=== PATIENT | female | born 1955 | race Caucasian/White ===

== ENCOUNTER → 2023-02-11 | Outpatient (CLI) | payer OTHER, SELFPAY ==
--- NOTE | 2023-02-11 | LES_PTH ---
PATIENT: CHUN MAZA LOC: [facility] U#:[id number] AGE/SX: 67/F ROOM: RE02/11/[address]: Dr. Elvis Marcano MD : 1955 BED: DIS: 02/11/2023 SPEC #: [id number] RECD: 02/11/23 17:39 STATUS: BRENT LINDA #: [id number] NANDINI: 02/11/23 00:[address]: Elvis Marcano DEPT: SURGICAL PATHOLOGY RECD BY: Mansi Junior Tissues: Skin of eyelid, NOS Procedures: Surgery Specimen Level IV HEADER OPERATION: Excision pterygium, right eye PRE-OP DIAGNOSIS: Excision pterygium, right eye, increased size and thickness TISSUE SUBMITTED: Pterygium, nasal, right eye MICROSCOPIC DIAGNOSIS Pterygium right eye, biopsy: Pterygium with elastosis. AM:nael 02/15/2023 MICROSCOPIC DESCRIPTION Slides are reviewed. GROSS DESCRIPTION Received in fixative is one container labeled with the patient's name and designated pterygium, nasal, right eye. The specimen consists of a piece of dewitt-brown soft tissue measuring 0.3 x 0.1 x 0.1 cm. The entire specimen is submitted in one cassette. / SJ:nael 02/12/2023 TC:5 CPT: 56038
== END | disposition home or self-care (01) ==
PROVIDERS: Visit Provider Ophthalmology
DX: H11.001 Unspecified pterygium of right eye (principal)
CPT/HCPCS: 88305

== ENCOUNTER 2025-03-20 13:22 | Emergency (ER) | payer MEDICARE, SELFPAY ==
[2025-03-20 13:23] VITALS: BP 137/92; PULSE 109; RESP 18; TEMP 35.6; O2SAT 98
--- NOTE | 2025-03-20 14:10 | EX.ED.GENINJ ---
HPI History of Present Illness Chief Complaint: Trauma Detail of Chief Complaint: Injury left index finger while using hedger Informant: patient Onset/Context/Timing Onset: Hours Mechanism/Context: Blunt Injury Location of pain/injuries: Left hand (Index finger distal to the DIP joint) Current Severity: Mild Maximum Severity: Moderate Worsened by: Original injury Relieved by: Not using her hand Associated Symptoms Associated Symptoms: Negative for Parasthesias, Weakness or Loss of function Narrative Narrative: Patient is a 69-year-old [id number] female. She has no significant past medical history. She states her tetanus is up-to-date. She was using a hedge tremor. She sustained injury to the tip of her left index finger. She states she is able to bend her finger. She has no medical allergies. Prior similar symptoms: No Recent Illness/Hospitalization: No PFSH PFSH Medical History no medical history no medical history Home Medications ?Medication ?Instructions ?Recorded ?Last Taken ?Type clobetasol 0.05 % topical ointment 1 applic topical BID PRN FLARE 03/20/25 Unknown History valacyclovir 500 mg tablet 500 mg PO BID 03/20/25 Unknown History Allergy/AdvReac Type Severity Reaction Status Date / Time No Known Allergies Allergy Verified 03/20/25 13:23 Social History Smoking Status: Never smoker ROS ROS ED Integumentary Reports other Details: Laceration left index finger distal DIP joint ; Denies rash Neurologic Neurologic: Denies paresthesias Hematologic/Lymphatic Hematologic/Lymphatic: Denies easy bleeding or easy bruising EXAM Physical Exam Const Vital Signs: 03/20/25 13:23 Temperature 96.1 F L Temperature Source Temporal Pulse Rate 109 H Respiratory Rate 18 Blood Pressure 137/92 H Blood Pressure Mean 107 Pulse Ox 98 Oxygen Delivery Method Room Air Positive well nourished and well developed Constitutional Narrative: Patient is very anxious. Patient requested something for pain. I informed her I will anesthetize her finger and she will have no pain within 10 seconds. General Appearance ED: well developed HEENT HEENT Narrative: Head is normocephalic. Ears are normal. atraumatic Eyes PERRL and EOMs intact bilaterally General Eye ED: Yes other Other Details: There is no scleral icterus. Resp normal respiratory effort Cardio regular rhythm and S1 normal heart sound Extremity full ROM; Negative for normal to inspection Extremity Narrative: The flexor digitorum superficialis and flexor digitorum profundus are both intact. There is no subungual hematoma. Patient has abnormal to point discrimination distal to the wound. Neuro oriented x3, CN's II-XII intact bilaterally, no focal motor deficits and No no sensory deficits noted [place] Coma Scale: document GCS findings Spontaneous Obeys Commands Oriented 15 Sensorium / Orientation: alert Psych thought process normal; Negative for mental status grossly normal Mood & Affect: anxious Skin Skin Narrative: Laceration distal left index finger PROC Procedures Other Procedures Procedure(s): Laceration left index finger total length 1.9 cm: Patient was anesthetized by digital block. 1% lidocaine without epinephrine was used. A total of 3 cc was infused. Prior to placing the for stitch patient states she has burning sensation the tip of her index finger ulnar side. Additionally lidocaine was instilled. Wound was cleansed with serge cleanse irrigated with saline. Using 5-0 Ethilon simple interrupted sutures placed. Total number of stitches 6. MDM MDM MDM Narrative Medical decision making narrative: X-ray was obtained to evaluate for osseous injury. Patient has abnormal 2 points rumination. The wound is quite distal and would not be something that would be treated with microsurgery. Radiography Chest X-Ray - ED: Read by ED Physician (Three-view x-ray of the index finger reveals no evidence of fracture or foreign body. This is a fairly reviewed interpreted by me at 1421) Diagnostic Testing: Clinical Impression(s) from Imaging Studies Finger X-Ray 03/20/25 14:15 IMPRESSION: Soft tissue laceration. No fracture. Reading Location: [facility] Discharge Plan Triage Chief Complaint: Trauma ED Provider: Julián Sheldon Dx/Rx/DC Orders Clinical Impression: Laceration of left index finger with complication, Sinus tachycardia, Elevated blood-pressure reading without diagnosis of hypertension Instructions: ED Hypertension, To Be Confirmed, ED Laceration, Hand: All Closures Prescriptions: No Action valacyclovir 500 mg tablet 500 mg PO BID Patient Comments: PT STATES ONLY TAKES ONCE OR TWICE A YEAR FOR FLARE clobetasol 0.05 % ointment 1 applic topical BID PRN (Reason: FLARE ) Primary Care Provider: NOT,DEFINED Referrals: NOT,DEFINED [Primary Care Provider] - Activity Restrictions/Additional Instructions: 1. Contact your provider for stitches to be removed in 10 days and have your blood pressure rechecked. 2. Keep the wound clean and dry for the next 48 to 72 hours. 3. Return if there is any evidence of infection or you are experiencing severe pain. Print Language: Djib[place]ian Disposition Disposition: Home, Self Care
[2025-03-20] MEDS: Lidocaine 1% (20 ml mdv) 20 ML Vial INFILT (14:13)
--- NOTE | 2025-03-20 14:15 | RAD_ITS ---
PROCEDURE: FINGER(S) MIN 2 VIEWS 03/20/2025 REASON FOR EXAM: INJURY/PAIN TECHNIQUE: 3 view(s) of the index finger COMPARISON: None FINDINGS: Bones: No fracture. Joints: Normal alignment. Mild degenerative changes. Soft tissues: Soft tissue laceration. Other: RAD/Finger(s) Min 2 Views IMPRESSION: Soft tissue laceration. No fracture. Reading Location: [place] [id number]
[2025-03-20 15:22] VITALS: BP 137/86
[2025-03-20 16:05] VITALS: BP 133/82; PULSE 78; RESP 20; TEMP 36.3; O2SAT 100
--- OUTSIDE RECORDS SUMMARY | 2025-03-21 00:02 | XMS RPT_ITS | CCD ---
Author Organization [facility] CliniSymd Care Team Providers Care Residential Supervisor Name Role Phone Jessica Persaud MD Primary Care Provider Elvis Marcano Attending Unavailable Jessica Persaud MD Primary Care Provider Jessica Persaud MD Primary Care Provider Alaina COMMERCIAL COORDINATOR.Suzie ALDANA Unavailable Yaw COMMERCIAL COORDINATOR.CAMP TENDER, Rush Unavailable Brianna Manning MD Primary Care Provider Brianna Manning MD Primary Care Provider SUZIE BRIGGS Admitting Unavailable SUZIE BRIGGS Attending Unavailable VILMALBRIANNA Primary Care Unavailable SUZIE BRIGGS Referring Unavailable CEBUL, BRIANNA KERN Primary Care Unavailable SUZIE BRIGGS Referring Unavailable CEBUL, BRIANNA KERN Primary Care Unavailable SUZIE BRIGGS Referring Unavailable CEBUL, BRIANNA KERN Primary Care Unavailable CEBUL, BRIANNA KERN Primary Care Unavailable SUZIE FOLEY Referring Unavailable CEBUL, BRIANNA KERN Primary Care Unavailable SUSTIN, FRANCO F Attending Unavailable SUSTIN, FRANCO F Referring Unavailable CEBUL, BRIANNA KERN Primary Care Unavailable SUSTIN, FRANCO F Referring Unavailable CEBUL, BRIANNA KERN Primary Care Unavailable SUSTIN, FRANCO F Referring Unavailable CEBUL, BRIANNA KERN Primary Care Unavailable CANDELARIA CAMEJO Referring Unavailable CEBUL, BRIANNA KERN Primary Care Unavailable SUSTIN, FRANCO F Referring Unavailable CEBUL, BRIANNA KERN Primary Care Unavailable SUZIE BRIGGS Attending Unavailable VILMAL, BRIANNA KERN Primary Care Unavailable MICHAEL HENRY Attending Unavailable SUZIE BRIGGS Referring Unavailable CEBUL, BRIANNA KERN Primary Care Unavailable CEBUL, BRIANNA KERN Primary Care Unavailable SUZIE BRIGGS Attending Unavailable BRIANNA MANNING Primary Care Unavailable SIMIN LONGO Attending Unavailable SUZIE BRIGGS Referring Unavailable BRIANNA MANNING Primary Care Unavailable SIMIN LONGO Attending Unavailable SUZIE BRIGGS Referring Unavailable BRIANNA MANNING Primary Care Unavailable LARISA SWANSON Attending Unavailable JESSICA PERSAUD Primary Care Unavailable SUZIE FOLEY Referring Unavailable JESSICA PERSAUD Primary Care Unavailable SUZIE FOLEY Attending Unavailable SELF Referring Unavailable JESSICA PERSAUD Primary Care Unavailable Pito MANTILLA, Dr. Gallego Emergency Provider Dr. Jessica Persaud MD Primary Care Provider Medications Current Medications Medication Drug Class(es) Dates Sig (Normalized) Sig (Original) albuterol 0.83 mg/ml inhalation solution (1 source) beta2-Adrenergic Agonist Start: 01-04-2025 2.5 mg, nebulization, Once as needed, wheezing, Starting on Teresa 01/04/25 at 1008, For 1 dose, Recovery (only) calcium chloride 0.0014 meq/ml / potassium chloride 0.004 meq/ml / sodium chloride 0.103 meq/ml / sodium lactate 0.028 meq/ml injectable solution (1 source) Start: 01-04-2025 End: 01-05-2025 take 100 mL intravenously every hour 100 mL/hr, intravenous, Continuous, Starting on Teresa 01/04/25 at 1030, For 1 day, Recovery (only) clobetasol propionate 0.0005 mg/mg topical ointment (10 sources) Corticosteroid Start: 03-20-2025 Clobetasol 0.05 % ointment Active 1 NMA TOPICAL TWICE A DAY as needed for FLARE March 20, 2025 12:00am Start: 07-27-2024 End: 07-27-2025 clobetasol (TEMOVATE) 0.05 % ointment Indications: Psoriasis Apply to affected area two times a day. 60 g 3 07/27/2024 07/27/2025 Active Start: 07-27-2024 End: 07-27-2025 clobetasol (Temovate) 0.05 % ointment Apply 1 Application topically 2 times a day. 07/27/2024 07/27/2025 Active diphenhydrAMINE (1 source) Histamine-1 Receptor Antagonist Start: 01-04-2025 12.5 mg, intravenous, Once as needed, itching, allergic reaction, Starting on Teresa 01/04/25 at 1008, For 1 dose, Recovery (only) doxycycline hyclate 100 mg oral capsule (2 sources) Tetracycline-clas s Drug Start: 02-25-2025 End: 03-07-2025 take 1 capsule by mouth twice daily doxycycline hyclate (VIBRAMYCIN) 100 mg capsule Indications: Bug bite, initial encounter , Cellulitis of skin Take 1 capsule by mouth two times a day for 10 days. 20 capsule 02/25/2025 03/07/2025 Active Start: 08-16-2023 End: 08-26-2023 take 1 tablet by mouth twice daily doxycycline (VIBRA-TABS) 100 mg tablet Indications: Tick bite of back, initial encounter Take 1 tablet by mouth two times a day for 10 days. 20 tablet 0 08/16/2023 08/26/2023 Active Comment on above: Take 1 tablet by [facility] two times a day for 10 days. 1 ml fentaNYL 0.05 mg/ml injection (1 source) Opioid Agonist Start: 01-04-2025 12.5 mcg, intravenous, Every 5 min PRN, pain mild (1-3), first line, Starting on Teresa 01/04/25 at 1008, Recovery (only), Max total of 200 micrograms regardless of dose., If ordered PRN for pain, nurse is permitted to administer this medication for higher pain scores based on patient preference? Yes 1 ml hydrALAZINE hydrochloride 20 mg/ml injection (1 source) Arteriolar Vasodilator Start: 01-04-2025 5 mg, intravenous, Administer over 2 Minutes, Every 30 min PRN, systolic blood pressure greater than 180 mmHg and heart rate less than 60 BPM, Starting on Teresa 01/04/25 at 1008, For 2 doses, Recovery (only) 1 ml HYDROmorphone hydrochloride 1 mg/ml cartridge (2 sources) Opioid Agonist Start: 01-04-2025 0.5 mg, intravenous, Every 5 min PRN, pain moderate (4-6), first line, Starting on Teresa 01/04/25 at 1008, Recovery (only), Max total of 4 mg regardless of dose. Start: 01-04-2025 1 mg, intraven ous, Every 5 min PRN, pain severe (7-10), first line, Starting on Teresa 01/04/25 at 1008, Recovery (only), Max total of 4 mg regardless of dose. meloxicam 15 mg oral tablet (9 sources) Nonsteroidal Anti-inflammatory Drug Start: 07-20-2024 End: 01-16-2025 take 1 tablet by mouth once daily at mealtime meloxicam (Mobic) 15 mg tablet Take 1 tablet (15 mg) by mouth once daily. Take with food. 07/20/2024 Active 1 ml meperidine hydrochloride 50 mg/ml injection (1 source) Opioid Agonist Start: 01-04-2025 12.5 mg, intravenous, Every 10 min PRN, shivering, Starting on Teresa 01/04/25 at 1008, Recovery (only) 5 ml midazolam 1 mg/ml injection (1 source) Benzodiazepine Start: 01-04-2025 1 mg, intravenous, Once as needed, anxiety, Starting on Teresa 01/04/25 at 1008, For 1 dose, Recovery (only) multivitamin (DAILY MULTIPLE) ORAL Tab (12 sources) Start: 06-02-2007 take 1 tablet by mouth once daily multivitamin (DAILY MULTIPLE) ORAL Tab Take one(1) tablet daily. 0 06/02/2007 Active Comment on above: Take one(1) tablet d aily. oxyCODONE hydrochloride 5 mg oral tablet (1 source) Opioid Agonist Start: 01-04-2025 take 1 tablet by mouth every four hours as needed 5 mg, oral, Every 4 hours PRN, pain severe (7-10), second line, Starting on Teresa 01/04/25 at 1008, Recovery (only), When able to take oral medications., If ordered PRN for pain, nurse is permitted to administer this medication for higher pain scores based on patient preference? Yes oxygen (O2) therapy (1 source) Start: 01-04-2025 inhalation, Continuous PRN - O2/gases, other, Starting on Teresa 01/04/25 at 1008, Recovery (only), Device: Nasal Cannula, Rate in liters per minute: Other, Custom Value: 1-6 LPM, Keep O2 Sat Above: 92% valACYclovir 500 mg oral tablet (13 sources) Herpesvirus Nucleoside Analog DNA Polymerase Inhibitor, Herpes Simplex Virus Nucleoside Analog DNA Polymerase Inhibitor, Herpes Zoster Virus Nucleoside Analog DNA Polymerase Inhibitor Start: 03-20-2025 take 1 tablet by mouth twice daily Valacyclovir 500 mg tablet Active 500 mg PO TWICE A DAY March 20, 2025 12:00am Start: 11-30-2024 End: 11-30-2025 take 1 tablet by mouth three times daily valACYclovir (VALTREX) 1 gram tablet Indications: Herpes Take 1 tablet by mouth three times a day. 21 tablet 2 11/30/2024 11/30/2025 Active Start: 06-12-2024 End: 01-04-2025 take 1 tablet by mouth twice daily valACYclovir (Valtrex) 500 mg tablet take 1 tablet by mouth twice a day for FLARE UPS 06/12/2024 01/04/2025 Discontinued (Stop Taking at Discharge) Completed/Discontinued Medications Medication Drug Class(es) Dates Sig (Normalized) Sig (Original) acetaminophen 325 mg oral tablet (1 source) Start: 01-04-2025 End: 01-04-2025 take 975 mg by mouth once as needed for pain 975 mg, oral, Once, On Teresa 01/04/25 at 1030, For 1 dose, Recovery (only), If ordered PRN for pain, nurse is permitted to administer this medication for higher pain scores based on patient preference? Yes acetaminophen 325 mg / oxyCODONE hydrochloride 5 mg oral tablet (2 sources) Opioid Agonist Start: 08-29-2016 End: 03-20-2025 Oxycodone-Acetamino phen 1 TABLET tablet Discontinued 1 {tbl} PO EVERY 4 HOURS NEEDED as needed for Pain August 29, 2016 1:00am March 20, 2025 2:36pm Start: 08-29-2016 take 1 tablet by олег th every four hours as needed Oxycodone-Acetaminophen Active 1 TABLET PO EVERY 4 HOURS NEEDED August 29, 2016 1:00am Calcium Carbonate / vitamin D3 (5 sources) End: 07-20-2024 take 5000 [IU] by mouth once daily CALCIUM CARBONATE/VITAMIN D3 (VITAMIN D-3 ORAL) Take by mouth. Taking 5000 IU daily 07/20/2024 Discontinued take 5000 [IU] by mouth once benoit ly CALCIUM CARBONATE/VITAMIN D3 (VITAMIN D-3 ORAL) Take by mouth. Taking 5000 IU daily Active take 5000 [IU] by mouth once benoit ly CALCIUM CARBONATE/VITAMIN D3 (VITAMIN D-3 ORAL) Take by mouth. Taking 5000 IU daily 0 Active Comment on above: Take by mouth. Toro luciano 5000 IU daily erythromycin 0.005 mg/mg ophthalmic ointment (3 sources) Macrolide, Macrolide Antimicrobial Start: 08-07-20 End: 02-07-20 erythromycin (Romycin) 5 mg/gram (0.5 %) ophthalmic ointment Apply 0.5 Applications to both eyes 1 time. 08/07/2024 02/06/2025 Discontinued (Therapy completed) exemestane 25 mg oral tablet (2 sources) Aromatase Inhibitor Start: 08-29-20 End: 03-20-20 take 1 tablet by mouth once daily Exemestane 25 MG tablet Discontinued 25 mg PO DAILY August 29, 2016 1:00am March 20, 2025 2:36pm lidocaine (Buffered) 1 % injection 10 mL (1 source) Start: 11-16-19 End: 11-16-19 10 mL, subcutaneous, Once, On Wed11/16/24 at 1030, For 1 dose, Intraprocedure lidocaine (Buffered) 1 % injection 20 mL (1 source) Start: 12-27-19 End: 12-27-19 20 mL, subcutaneous, Once, On Wed12/26/24 at 1430, For 1 dose ondansetron 4 mg oral tablet (3 sources) Serotonin-3 Receptor Antagonist Start: 01-05-20 End: 01-26-20 take 1 tablet by mouth every six hours for nausea ondansetron (Zofran) 4 mg tablet 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 20 tablet 01/04/2025 01/25/2025 Discontinued (Therapy completed) Start: 01-04-2025 4 mg, intraven ous, Once as needed, nausea/vomiting, first line, Starting on Wed01/04/25 at 1008, For 1 dose, Recovery (only), When administering via IV Push, administer over 3-5 minutes. 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 12 tablet 01/04/2025 12:02 PM EDT 01/04/2025 01/25/2025 Discontinued (Therapy completed) Problems Active Problems Problem Classification Problem Date Documented Date Episodic/Chronic Administrative/social admission (2 sources) Encounter for nonprocreative genetic counseling; Translations: [Encounter for nonprocreative genetic counseling] Onset: 12-13-2024 Episodic Cancer of breast (20 sources) Malignant neoplasm of female breast; Translations: [Malignant neoplasm of unspecified site of unspecified female breast] Onset: 08-02-2021 08-02-2021 Chronic Cardiac dysrhythmias (1 source) Sinus tachycardia; Translations: [Tachycardia, unspecified] 03-20-2025 Episodic Disorders of lipid metabolism (3 sources) Hyperlipidemia; Translations: [Hyperlipidemia, unspecified] Onset: 07-25-2024 08-16-2023 Chronic E Codes: Natural/environment (2 sources) Insect bite - wound; Translations: [Bitten or stung by nonvenomous insect and other nonvenomous arthropods, initial encounter] Onset: 02-25-2025 02-25-2025 Episodic Nutritional deficiencies (4 sources) Vitamin D deficiency; Translations: [Vitamin D deficiency, unspecified] Onset: 07-25-2024 Chronic Open wounds of extremities (1 source) Laceration of left index finger; Translations: [Laceration without foreign body of left index finger without damage to nail, initial encounter] 03-20-2025 Episodic Osteoarthritis (2 sources) Arthritis of right foot; Translations: [Primary osteoarthritis, right ankle and foot] Onset: 07-20-2024 07-20-2024 Chronic Other circulatory disease (1 source) Elevated blood-pressure reading without diagnosis of hypertension; Translations: [Elevated blood-pressure reading, without diagnosis of hypertension] 03-20-2025 Episodic Other eye disorders (1 source) Unspecified pterygium of right eye; Translations: [Unspecified pterygium of right eye] Onset: 02-16-2023 Episodic Other inflammatory condition of skin (1 source) Psoriasis; Translations: [Psoriasis, unspecified] 07-27-2024 Chronic Residual codes; unclassified (1 source) Postmenopausal state; Translations: [Asymptomatic menopausal state] Episodic Skin and subcutaneous tissue infections (2 sources) Cellulitis of skin; Translations: [Cellulitis, unspecified] Onset: 02-25-2025 02-25-2025 Episodic Superficial injury; contusion (1 source) Tick bite; Translations: [Insect bite (nonvenomous) of lower back and pelvis, initial encounter] 08-16-2023 Episodic Viral infection (1 source) Herpes simplex; Translations: [Herpesviral infection, unspecified] 11-30-2024 Episodic Past or Other Problems Problem Classification Problem Date Documented Date Episodic/Chronic Cancer of breast (3 sources) History of malignant neoplasm of breast; Translations: [Personal history of malignant neoplasm of breast] Onset: 11-14-2024 11-14-2024 Episodic Nonmalignant breast conditions (4 sources) Calcification of breast; Translations: [Mammographic calcification found on diagnostic imaging of breast] Onset: 11-16-2024 11-16-2024 Episodic Other eye disorders (2 sources) Blepharochalasis right upper eyelid; Translations: [Blepharochalasis] Onset: 07-20-2024 07-20-2024 Episodic Other eye disorders (1 source) Blepharochalasis left upper eyelid; Translations: [Excess skin of upper eyelids of both eyes] Onset: 07-20-2024 Episodic Other screening for suspected conditions (not mental disorders or infectious disease) (20 sources) Patient encounter status; Translations: [Encounter for screening for malignant neoplasm of colon] Onset: 08-13-2009 08-13-2009 Episodic Results Test Name Value Interpretation Reference Range Facility [facility] 02-25-2025 CNOV Office Visit ([facility] ) MURIEL CABRERA ([id number]) 1955 F Date Time Provider Department 02/25/25 2:45 PM LARISA SWANSON [facility] During your visit today, we recorded the following information about you: Temperature Pulse Respiration Blood pressure 98.1 degrees 90/minute 18/minute 116/76 Weight 69 kg Larisa Swanson APRN.CAMP TENDER 02/25/2025 2:55 PM Signed [facility] Subjective Muriel Corona is a 69 year old female. Patient presents with: Trauma: Possible tick bite on left ankle x 2 days, back pain x this AM that has since resolved Presents for insect bite. Reports area looked more bullseye shaped yesterday. Unsure if she was bit by a tick or another insect. Reports she woke up with sharp back pain in the middle of the night and took tramadol. Pain has since resolved. The history is provided by the patient. Trauma This is a new problem. The current episode started in the past 7 days. The problem occurs constantly. The problem has been unchanged. Associated symptoms include arthralgias and a rash. Pertinent negatives include no chills, fatigue or fever. Nothing aggravates the symptoms. She has tried nothing for the symptoms. The treatment provided no relief. Review of Systems Constitutional: Negative for chills, fatigue and fever. Musculoskeletal: Positive for arthralgias. Skin: Positive for rash. Objective BP 116/76 (BP Site: Left Arm, BP Position: Sitting) Pulse 90 Temp 36.7 ?C (98.1 ?F) Resp 18 Wt 69 kg (152 lb 1.9 oz) LMP 06/11/2006 SpO2 96% BMI 27.82 kg/m? Physical Exam Constitutional: Appearance: Normal appearance. Skin: General: Skin is warm and dry. Findings: Erythema (left inner ankle, round raised with firm center. No central clearing noted. warm to touch.) present. Neurological: Mental Status: She is alert. {ASSESSMENT/PLAN: 1. Bug bite, initial encounter - ICD9: 919.4, ICD10: W57.XXXA (primary diagnosis) - DOXYCYCLINE HYCLATE 100 MG CAPSULE 2. Cellulitis of skin - ICD9: 682.9, ICD10: L03.90 - Begin treatment with Doxycycline - No lymphangetic streaking, this was defined for patient to watch for and to seek medical care immediately if appears - Follow up for recheck in prn - DOXYCYCLINE HYCLATE 100 MG CAPSULE Will cover with doxycyline for cellulitis and lyme due to back pain. Larisa Swanson APRN.CAMP TENDER MDM Procedures Allergies As of Date: 02/25/2025 (No Known Allergies) Date Reviewed: 02/25/2025 Reviewed by: Vika Betancourt OCCA - Fully Assessed Reason for Visit: Trauma [112] Cmt: Possible tick bite on left ankle x 2 days, back pain x this AM that has since resolved Primary Visit Diagnosis:Bug bite, initial encounter [W57.XXXA] Other Visit Diagnosis:Cellulitis of skin [L03.90] Order(s):doxycycline hyclate (VIBRAMYCIN) 100 mg capsuleTake 1 capsule by mouth two times a day for 10 days.Disp: 20 capsuleRfl: 0 Prescriptions as of 02/25/2025 - doxycycline hyclate (VIBRAMYCIN) 100 mg capsule Take 1 capsule by mouth two times a day for 10 days. - valACYclovir (VALTREX) 1 gram tablet Take 1 tablet by mouth three times a day. - clobetasol (TEMOVATE) 0.05 % ointment Apply to affected area two times a day. - multivitamin (DAILY MULTIPLE) ORAL Tab Take one(1) tablet daily. Problem List As Of Date 02/25/2025 Noted Resolved Colon Cancer Screening [Z12.11] 08/13/2009 Malignant neoplasm of female breast (HCC) [C50.* Prescriptions ordered this encounter Disp Refills Start End DOXYCYCLINE HYCLATE 100 MG CAPSULE 20 c* 0 02/25/2025 03/07/2025 Route: ORAL Sig: Take 1 capsule by mouth two times a day for 10 days. Disposition: Return if symptoms worsen or fail to improve. Follow-up and Disposition History for Encounter Date Provider Department Center 02/25/2025 [id number] Encounter Status:Closed by LARISA SWANSON on 02/25/25 Normal [facility] [place] [facility] BI RAD BREAST EXAM SPECIMENo n 01-04-2025 BI RAD BREAST EXAM SPECIMEN Interpreted By: Leonidas Jimenez, and Mendoza Hillman STUDY: BI RAD BREAST EXAM SPECIMEN; 01/04/2025 10:04 am ACCESSION NUMBER(S): [id number] ORDERING CLINICIAN: SUZIE BRIGGS INDICATION: Left Breast Magseed localization. 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 IMPRESSION: Status post surgical excision of Left breast Magseed localization. I personally reviewed the images/study and I agree with the findings as stated by Rafy Donaldson MD (resident) . This study was interpreted at [place], [place]. MACRO: None Signed by: Leonidas Jimenez 01/04/2025 10:47 AM Dictation workstation: [id number] Normal [facility] MG Breast specimen Viewson 0 01-04-2025 Status post surgical excision of Left breast Magseed localization. I personally reviewed the images/study and I agree with the findings as stated by Rafy Donaldson MD (resident) . This study was interpreted at [place], [place]. MACRO: None Signed by: Leonidas Jimenez 01/04/2025 10:47 AM Dictation workstation: [id number] [facility] MMODAL Interpreted By: Leonidas Jimenez and Velez-Martinez Rafy STUDY: BI RAD BREAST EXAM SPECIMEN; 01/04/2025 10:04 am ACCESSION NUMBER(S): [id number] ORDERING CLINICIAN: SUZIE BRIGGS INDICATION: Left Breast Magseed localization. 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 [facility] MMODAL Leonidas Jimenez MD - 01/04/2025 Interpreted By: Leonidas Jimenez and Velez-Martinez Osvaldo STUDY: BI RAD BREAST EXAM SPECIMEN; 01/04/2025 10:04 am ACCESSION NUMBER(S): [id number] ORDERING CLINICIAN: SUZIE BRIGGS INDICATION: Left Breast Magseed localization. 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 IMPRESSION: Status post surgical excision of Left breast Magseed localization. I personally reviewed the images/study and I agree with the findings as stated by Rafy Donaldson MD (resident) . This study was interpreted at [facility], [place], [place]. MACRO: None Signed by: Leonidas Jimenez 01/04/2025 10:47 AM Dictation workstation: [id number] [facility] Work Phone: Radiology Study observation (narrative) [facility] Work Phone: MG Breast specimen ViewsOrde red By: Leonidas Jimenez on 01-04-2025 [facility] Work Phone: Surgical pathology studyon 0 01-04-2025 Surgical pathology study Pathology report.total SEE COMMENT Surgical Pathology Case: [id number] Authorizing Provider: Suzie Briggs DO Collected: 01/04/2025 0947 Ordering Location: [facility] Received: 01/04/2025 1013 OR Pathologist: Leland Rose DO Specimens: A) - BREAST LUMPECTOMY LEFT, LEFT MAGSEED LOCALIZED PARTIAL MASTECTOMY SHORT STITCH SUPERIOR; LONG STITCH LATERAL OOB:0947 B) - BREAST MARGIN LEFT, LEFT SUPERIOR breast margin ink fry new margin C) - BREAST MARGIN LEFT, LEFT INFERIOR breast margin ink fry new margin D) - BREAST MARGIN LEFT, LEFT MEDIAL breast margin ink fry new margin E) - BREAST MARGIN LEFT, LEFT LATERAL breast margin ink fry new margin F) - BREAST MARGIN LEFT, LEFT ANTERIOR breast margin ink fry new margin G) - BREAST MARGIN LEFT, LEFT POSTERIOR breast margin ink fry new margin Path report.final diagnosis SEE COMMENT A. Left breast, magseed localized partial mastectomy: -- No residual carcinoma identified, see note and synoptic report. -- Atypical lobular hyperplasia. -- Changes consistent with site of previous biopsy. Note: The entire specimen is submitted for evaluation and no residual ductal carcinoma in situ is identified. The prior biopsy ([id number]) was reviewed and the finding of 5 mm of intermediate grade ductal carcinoma in situ was reaffirmed. This information will be incorporated into the synoptic report. B. Left breast new superior margin, excision: -- Breast tissue with no evidence of malignancy. C. Left breast new inferior margin, excision: -- Breast tissue with no evidence of malignancy. D. Left breast new medial margin, excision: -- Breast tissue with no evidence of malignancy. E. Left breast new lateral margin, excision: -- Breast tissue with no evidence of malignancy, see note. -- Atypical lobular hyperplasia with associated microcalcifications. Note: Immunohistochemical stain for e-cadherin shows absent/reduced expression supporting lobular phenotype. F. Left breast new anterior margin, excision: -- Breast tissue with no evidence of malignancy. G. Left breast new posterior margin, excision: -- Breast tissue with no evidence of malignancy. peb Laboratory comment By the signature on this report, the individual or group listed as making the Final Interpretation/Diagnosi s certifies that they have reviewed this case. Synoptic report SEE COMMENT DCIS OF THE BREAST: Resection DCIS OF THE BREAST: RESECTION - All Specimens 8th Edition - Protocol posted: 12/31/2021 SPECIMEN Procedure: Excision (less than total mastectomy) Specimen Laterality: Left TUMOR Tumor Site: Not specified Histologic Type: Ductal carcinoma in situ Size (Extent) of DCIS: Estimated size (extent) of DCIS is at least (Millimeters): As measured on the prior core biopsy ([id number]), 5 mm Architectural Patterns: Cribriform Architectural Patterns: Solid Nuclear Grade: Grade II (intermediate) Necrosis: Present, central (expansive comedo necrosis) Microcalcifications: Present in DCIS Microcalcifications: Present in nonneoplastic tissue Microcalcifications: Atypical lobular hyperplasia MARGINS Margin Status: Not applicable (no DCIS in specimen) REGIONAL LYMPH NODES Regional Lymph Node Status: Not applicable (no regional lymph nodes submitted or found) PATHOLOGIC STAGE CLASSIFICATION (pTNM, AJCC 8th Edition) Reporting of pT, pN, and (when applicable) pM categories is based on information available to the pathologist at the time the report is issued. As per the AJCC (Chapter 1, 8th Ed.) it is the managing physician's responsibility to establish the final pathologic stage based upon all pertinent information, including but potentially not limited to this pathology report. pT Category: pTis (DCIS) pN Category: pN not assigned (no nodes submitted or found) Breast Biomarker Testing Performed on Previous Biopsy: Estrogen Receptor (ER) Status: Positive Percentage of Cells with Nuclear Positivity: 91-100% Testing Performed on Case Number: Prior core biopsy, [id number] Comment(s): Immunohistochemical stain for e-cadherin shows absent/reduced expression in foci supporting lobular phenotype. 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 The specimen is oriented with a short superior and a long lateral stitch. A localizing needle is not identified. The specimen is inked in the following manner: anterior green, posterior black, superior red, inferior b (more content not included)... 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 The procedure was explained to the patient including the risks, benefits, and alternatives. Medications were discussed, including any prior use of blood thinning medications by the patient. Patient allergies were reviewed. The risks, including but not limited to infection and bleeding, were reviewed by the performing physician and the patient agreed to undergo the procedure. Prior to the procedure, an audible timeout was done to verify patient identification, site and type of procedure. Dr. Leonidas Jimenez and a biochemistry technologist were present. PROCEDURE: The left breast was marked and sterilely prepped. The biopsy marker was identified in the upper central left breast at a middle depth.. 5 mL of buffered 1% lidocaine was injected subcutaneously and into the deeper tissues. A 7 cm needle containing a Magseed was advanced into the area of concern using a superior approach. The biopsy marker was localized using a Magseed. The seed was intentionally placed 1 cm superior to the tissue marker as the tissue marker migrated inferiorly at the time of the biopsy. The patient tolerated the procedure without difficulty. Additional images obtained after placement of the Magseed demonstrate satisfactory location of the Magseed in relation to the tissue marker.. IMPRESSION: Status post mammographic-guided Magseed localization of left breast tissue marker, as described above. POST PROCEDURE MAMMOGRAM FOR MARKER PLACEMENT. MACRO: None Signed by: Leonidas Jimenez 12/26/2024 3:56 PM Dictation workstation: [id number] [facility] BI MAMMO GUIDED BREAST LEFT LOCALIZATIONon 12-26-2024 BI MAMMO GUIDED BREAST LEFT LOCALIZATION Interpreted By: Leonidas Jimenez, STUDY: BI BREAST BIOPSY CLIP IMAGING; BI MAMMO GUIDED BREAST LEFT LOCALIZATION; 12/26/2024 2:00 pm; 12/26/2024 1:59 pm ACCESSION NUMBER(S): [id number]; [id number] ORDERING CLINICIAN: SUZIE BRIGGS INDICATION: Magseed localization of left for surgical planning. 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 The procedure was explained to the patient including the risks, benefits, and alternatives. Medications were discussed, including any prior use of blood thinning medications by the patient. Patient allergies were reviewed. The risks, including but not limited to infection and bleeding, were reviewed by the performing physician and the patient agreed to undergo the procedure. Prior to the procedure, an audible timeout was done to verify patient identification, site and type of procedure. Dr. Leonidas Jimenez and a biochemistry technologist were present. PROCEDURE: The left breast was marked and sterilely prepped. The biopsy marker was identified in the upper central left breast at a middle depth.. 5 mL of buffered 1% lidocaine was injected subcutaneously and into the deeper tissues. A 7 cm needle containing a Magseed was advanced into the area of concern using a superior approach. The biopsy marker was localized using a Magseed. The seed was intentionally placed 1 cm superior to the tissue marker as the tissue marker migrated inferiorly at the time of the biopsy. The patient tolerated the procedure without difficulty. Additional images obtained after placement of the Magseed demonstrate satisfactory location of the Magseed in relation to the tissue marker.. IMPRESSION: Status post mammographic-guided Magseed localization of left breast tissue marker, as described above. POST PROCEDURE MAMMOGRAM FOR MARKER PLACEMENT. MACRO: None Signed by: Leonidas Jimenez 12/26/2024 3:56 PM Dictation workstation: [id number] [facility] Basic metabolic 2000 panelon 12-26-2024 Anion gap [Moles/Vol] 13 mmol/L Normal 10-20 [facility] Comment on above: Performed By: #### 2 4321-2 #### YAA FITZPATRICK ([id number]) [facility] ([facility]) [address] [place] [address] Calcium [Mass/Vol] 9.3 mg/dL Normal 8.6-10.3 [facility] Comment on above: Performed By: #### 2 4321-2 #### YAA FITZPATRICK ([id number]) [facility] ([facility]) [address] [place] [address] Chloride [Moles/Vol] 105 mmol/L Normal 98-107 [facility] Comment on above: Performed By: #### 2 4321-2 #### YAA FITZPATRICK ([id number]) [facility] ([facility]) [address] [place] [address] CO2 [Moles/Vol] 28 mmol/L Normal 21-32 [facility] Comment on above: Performed By: #### 2 4321-2 #### YAA FITZPATRICK ([id number]) [facility] ([facility]) [address] [place] [address] Creatinine [Mass/Vol] 0.69 mg/dL Normal 0.50-1.05 [facility] Comment on above: Performed By: #### 2 4321-2 #### YAA FITZPATRICK ([id number]) [facility] ([facility]) [address] [place] [address] GFR/1.73 sq M.predicted MDRD (S/P/Bld) [Vol rate/Area] mL/min/{1.73_m2} Normal >60 [facility] Comment on above: Result Comment: Calc ulations of estimated GFR are performed using the 2020 CKD-EPI Study Refit equation without the race variable for the IDMS-Traceable creatinine methods. https://jasn.asnjournals.org/content/early//ASN.87353 33602 Performed By: #### 2 4321-2 #### YAA FITZPATRICK ([id number]) [facility] ([facility]) [address] [place] [address] Glucose [Mass/Vol] 82 mg/dL Normal 74-99 [facility] Comment on above: Performed By: #### 2 4321-2 #### YAA FITZPATRICK ([id number]) [facility] ([facility]) [address] [place] [address] Potassium [Moles/Vol] 4.4 mmol/L Normal 3.5-5.3 [facility] Comment on above: Performed By: #### 2 4321-2 #### YAA FITZPATRICK ([id number]) [facility] ([facility]) [address] [place] [address] Sodium [Moles/Vol] 142 mmol/L Normal 136-145 [facility] Comment on above: Performed By: #### 2 4321-2 #### YAA FITZPATRICK ([id number]) [facility] ([facility]) [address] [place] [address] Urea nitrogen [Mass/Vol] 14 mg/dL Normal 6-23 [facility] Comment on above: Performed By: #### 2 4321-2 #### YAA FITZPATRICK ([id number]) [facility] ([facility]) [address] [place] [address] CBC panel Auto (Bld)on 12-26 Erythrocyte distribution width (RBC) [Ratio] 13.2 % Normal 11.5-14.5 [facility] Comment on above: Performed By: #### 5 8410-2 #### YAA FITZPATRICK ([id number]) [facility] ([facility]) [address] [place] [address] Hematocrit (Bld) [Volume fraction] 43.3 % Normal 36.0-46.0 [facility] Comment on above: Performed By: #### 5 8410-2 #### YAA FITZPATRICK ([id number]) [facility] ([facility]) [address] [place] [address] Hemoglobin (Bld) [Mass/Vol] 14.3 g/dL Normal 12.0-16.0 [facility] Comment on above: Performed By: #### 5 8410-2 #### YAA FITZPATRICK ([id number]) [facility] ([facility]) [address] [place] [address] MCH (RBC) [Entitic mass] 30.4 pg Normal 26.0-34.0 [facility] Comment on above: Performed By: #### 5 8410-2 #### YAA FITZPATRICK ([id number]) [facility] ([facility]) [id number] [place] [address] MCHC (RBC) [Mass/Vol] 33.0 g/dL Normal 32.0-36.0 [facility] Comment on above: Performed By: #### 5 8410-2 #### YAA FITZPATRICK ([id number]) [facility] ([facility]) [address] [place] [address] MCV (RBC) [Entitic vol] 92 fL Normal 80-100 [facility] Comment on above: Performed By: #### 5 8410-2 #### YAA FITZPATRICK ([id number]) [facility] ([facility]) [address] [place] [address] Nucleated RBC/100 WBC (Bld) [Ratio] 0.0 /100 WBCs Normal 0.0-0.0 [facility] Comment on above: Performed By: #### 5 8410-2 #### YAA FITZPATRICK ([id number]) [facility] ([facility]) [address] [place] [address] Platelets (Bld) [#/Vol] 344 x10*3/uL Normal 150-450 [facility] Comment on above: Performed By: #### 5 8410-2 #### YAA FITZPATRICK ([id number]) [facility] ([facility]) [address] [place] [address] RBC (Bld) [#/Vol] 4.71 x10*6/uL Normal 4.00-5.20 [facility] Comment on above: Performed By: #### 5 8410-2 #### YAA FITZPATRICK ([id number]) [facility] ([facility]) [address] [place] [address] WBC (Bld) [#/Vol] 5.2 x10*3/uL Normal 4.4-11.3 [facility] Comment on above: Performed By: #### 5 8410-2 #### YAA FITZPATRICK ([id number]) [facility] ([facility]) [address] [place] [address] ECG 12-LEADon 12-26-2024 ECG 12-LEAD Ventricular Rate 74 Atrial Rate 74 P-R Interval 164 QRS Duration 84 Q-T Interval 428 QTC Calculation(Bazett) 475 P Allenwood 29 R Allenwood -14 T Allen[place] 22 QRS Count 12 Q Onset 229 P Onset 147 P Offset 198 T Offset 443 QTC Fredericia 459 Diagnosis Normal sinus rhythm Normal ECG When compared with ECG of 28-FEB-2008 10:25, No significant change was found Confirmed by Jose Mcmahan ([id number]) on 01/02/2025 8:07:05 AM Normal [facility] MG Breast - unilateral Singl e view for clip placementon 12-26-2024 Radiology Study observation (narrative) [facility] Work Phone: MG Guidance for needle local ization of Breast - lefton 12-26-2024 Radiology Study observation (narrative) [facility] Work Phone: No Panel Informationon 12-26 Status post mammographic-guided Magseed localization of left breast tissue marker, as described above. POST PROCEDURE MAMMOGRAM FOR MARKER PLACEMENT. MACRO: None Signed by: Leonidas Jimenez 12/26/2024 3:56 PM Dictation workstation: [id number] Interpreted By: Leonidas Jimenez, STUDY: BI BREAST BIOPSY CLIP IMAGING; BI MAMMO GUIDED BREAST LEFT LOCALIZATION; 12/26/2024 2:00 pm; 12/26/2024 1:59 pm ACCESSION NUMBER(S): [id number]; [id number] ORDERING CLINICIAN: SUZEI BRIGGS INDICATION: Magseed localization of left for surgical planning. 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 The procedure was explained to the patient including the risks, benefits, and alternatives. Medications were discussed, including any prior use of blood thinning medications by the patient. Patient allergies were reviewed. The risks, including but not limited to infection and bleeding, were reviewed by the performing physician and the patient agreed to undergo the procedure. Prior to the procedure, an audible timeout was done to verify patient identification, site and type of procedure. Dr. Leonidas Jimenez and a biochemistry technologist were present. PROCEDURE: The left breast was marked and sterilely prepped. The biopsy marker was identified in the upper central left breast at a middle depth.. 5 mL of buffered 1% lidocaine was injected subcutaneously and into the deeper tissues. A 7 cm needle containing a Magseed was advanced into the area of concern using a superior approach. The biopsy marker was localized using a Magseed. The seed was intentionally placed 1 cm superior to the tissue marker as the tissue marker migrated inferiorly at the time of the biopsy. The patient tolerated the procedure without difficulty. Additional images obtained after placement of the Magseed demonstrate satisfactory location of the Magseed in relation to the tissue marker.. [facility]AL Leonidas Jimenez MD - 12/26/2024 Interpreted By: Leonidas Jimenez, STUDY: BI BREAST BIOPSY CLIP IMAGING; BI MAMMO GUIDED BREAST LEFT LOCALIZATION; 12/26/2024 2:00 pm; 12/26/2024 1:59 pm ACCESSION NUMBER(S): [id number]; [id number] ORDERING CLINICIAN: SUZIE BRIGGS INDICATION: Magseed localization of left for surgical planning. 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 The procedure was explained to the patient including the risks, benefits, and alternatives. Medications were discussed, including any prior use of blood thinning medications by the patient. Patient allergies were reviewed. The risks, including but not limited to infection and bleeding, were reviewed by the performing physician and the patient agreed to undergo the procedure. Prior to the procedure, an audible timeout was done to verify patient identification, site and type of procedure. Dr. Leonidas Jimenez and a biochemistry technologist were present. PROCEDURE: The left breast was marked and sterilely prepped. The biopsy marker was identified in the upper central left breast at a middle depth.. 5 mL of buffered 1% lidocaine was injected subcutaneously and into the deeper tissues. A 7 cm needle containing a Magseed was advanced into the area of concern using a superior approach. The biopsy marker was localized using a Magseed. The seed was intentionally placed 1 cm superior to the tissue marker as the tissue marker migrated inferiorly at the time of the biopsy. The patient tolerated the procedure without difficulty. Additional images obtained after placement of the Magseed demonstrate satisfactory location of the Magseed in relation to the tissue marker.. IMPRESSION: Status post mammographic-guided Magseed localization of left breast tissue marker, as described above. POST PROCEDURE MAMMOGRAM FOR MARKER PLACEMENT. MACRO: None Signed by: Leonidas Jimenez 12/26/2024 3:56 PM Dictation workstation: [id number] [facility] Work Phone: No Panel InformationOrdered By: Leonidas Jimenez on 12-26-2024 [facility] Work Phone: MISCELLANEOUS GENETICS TESTo n 12-13-2024 COMMENTS - MP RESULT TYPE Report can be found in the 2bPrecise tab. Normal [facility] Comment on above: Order Comment: This order contains result documents that were not sent. The result might be incomplete. PLEASE READ: Genetic testing CARVEOUT: SEND TO [facility] Please draw blood using test tubes provided in the [employer] test kit (patient will bring with them), including ONE lavender top EDTA top and ONE PAX tube (see instructions in test kit for order of handling of blood draw). Please label tubes, but *DO NOT* seal the kit. Sample can be kept at room temperature. Please send blood to the [facility] for sendout to [facility]. The order paperwork for the test is uploaded to [employer]. Please message Michael Henry (genetic counselor) via secure chat, or call the main line at [phone] if any questions arise. Performed By: #### M ISCG #### [facility] ([employer]) [address] [place] [address] [facility] Comment on above: Order Comment: This order contains result documents that were not sent. The result might be incomplete. PLEASE READ: Genetic testing CARVEOUT: SEND TO [facility] Please draw blood using test tubes provided in the [employer] test kit (patient will bring with them), including ONE lavender top EDTA top and ONE PAX tube (see instructions in test kit for order of handling of blood draw). Please label tubes, but *DO NOT* seal the kit. Sample can be kept at room temperature. Please send blood to the [facility] for sendout to [facility]. The order paperwork for the test is uploaded to [employer]. Please message Michael Henry (genetic counselor) via secure chat, or call the main line at [phone] if any questions arise. Performed By: #### M ISCG #### [facility] ([facility]) [address] [place] [address] [facility] Telephone (FAMWS) GIAN MURIEL CORONA ([id number]) 1955 F Date Time Provider Department 11/30/24 SUZIE FOLEY During your visit today, we recorded the following information about you: Rachele Tilley LPN 11/30/2024 1:20 PM Signed Patient calling asking if Suzie Foley [employer] would give her rx for her generic Valacyclovir 500 mg one tablet twice daily as needed for flare of herpes. Patient uses [facility] for her pharmacy. Patient had rx from provider in [facility] but refill . Pending rx if wanted, needs completed. Please advise Suzie Foley APRN.CNP 11/30/2024 2:57 PM Signed The following approved medication requests have been transmitted electronically. Requested Prescriptions Signed Prescriptions Disp Refills valACYclovir (VALTREX) 1 gram tablet 21 tablet 2 Sig: Take 1 tablet by mouth three times a day. Authorizing Provider: SUZIE FOLEY APRN.CNP Allergies As of Date: 11/30/2024 (No Known Allergies) Date Reviewed: 07/20/2024 Reviewed by: Fadia Klein LPN - Fully Assessed Reason for Visit: Medication Request [138] Primary Visit Diagnosis:Herpes [B00.9] Order(s):valACYclovir (VALTREX) 1 gram tabletTake 1 tablet by mouth three times a day.Disp: 21 tabletRfl: 2 Prescriptions as of 11/30/2024 - valACYclovir (VALTREX) 1 gram tablet Take 1 tablet by mouth three times a day. - clobetasol (TEMOVATE) 0.05 % ointment Apply to affected area two times a day. - meloxicam (MOBIC) 15 mg tablet Take 1 tablet by mouth once daily. With food. - multivitamin (DAILY MULTIPLE) ORAL Tab Take one(1) tablet daily. Problem List As Of Date 11/30/2024 Noted Resolved Colon Cancer Screening [Z12.11] 08/13/2009 Malignant neoplasm of female breast (HCC) [C50.* Prescriptions ordered this encounter Disp Refills Start End VALACYCLOVIR 1 GRAM TABLET 21 t* 2 11/30/2024 11/30/2025 Route: ORAL Sig: Take 1 tablet by mouth three times a day. Encounter Status:Closed by SUZIE FOLEY on 11/30/24 Normal [facility] BI BREAST BIOPSY CLIP IMAGIN Guzman 11-16-2024 BI BREAST BIOPSY CLIP IMAGING Interpreted By: Dudley Cerrato, ADDENDUM: The final pathology for calcifications in the superior central left breast at middle that demonstrates ductal carcinoma in situ, intermediate nuclear grade, solid and cribriform patterns with comedonecrosis and microcalcifications. This is concordant with the imaging findings. Follow-up with patient's surgical provider is recommended. Estimated size of mass/extent of disease: The calcifications measure 0.3 cm on mammogram dated 11/14/2024. Ipsilateral lymph nodes: Were not evaluated. MRI recommendation: At the discretion of the referring surgeon. Method of Detection: Category Sdbt - 3D Screening Signed by: Dudley Cerrato 11/24/2024 8:16 AM -------- ORIGINAL REPORT -------- Dictation workstation: [id number] Interpreted By: Dudley Cerrato, STUDY: BI STEREOTACTIC GUIDED BREAST LEFT LOCALIZATION AND BIOPSY; BI BREAST BIOPSY CLIP IMAGING; 11/16/2024 10:52 am; 11/16/2024 11:12 am ACCESSION NUMBER(S): [id number]; [id number] ORDERING CLINICIAN: FRANCO LOYA INDICATION: Left breast calcifications. ,R92.1 Mammographic calcification found on diagnostic imaging of breast; ,R92.8 Other abnormal and inconclusive findings on diagnostic imaging of breast FINDINGS: PREPROCEDURAL CONSULTATION: The history and physical exam pertinent to the procedure were reviewed and no updates were made. The procedure was explained to the patient including the risks, benefits, and alternatives. Medications were discussed, including any prior use of blood thinning medications by the patient. Patient allergies were reviewed. The risks, including but not limited to infection and bleeding, were reviewed by the performing physician and the patient agreed to undergo the procedure. Prior to the procedure, an audible timeout was done to verify patient identification, site and type of procedure. Dr. Dudley Cerrato, a radiology nurse and two mammography technologists were present. PROCEDURE: A strategic insights lead view of the left breast localized the calcifications of concern in the superior central breast at middle depth. A superior approach was used. The breast was prepped and draped in a sterile manner. 11 mL of buffered 1% lidocaine was injected subcutaneously and then into the deeper tissues. A small incision was made. 6 tissue core specimens were then obtained with a 9-gauge vacuum assisted biopsy needle with minimal bleeding (estimated blood loss less than 10 mL). The specimen radiograph demonstrated multiple calcifications in the tissues. A cork Trimark tissue marker was then placed into the biopsy site. Hemostasis was achieved with manual compression. The patient tolerated the procedure without difficulty. Pathology specimens were labeled with patient identifiers while the patient was in the procedure room, and then sent to the pathology department. The postbiopsy mammogram demonstrates questionable 0.9 cm inferior migration of the biopsy tissue marker with wrist back to the biopsy site. No residual calcifications are identified on the post biopsy mammogram. The patient experienced no complications during the procedure. Home-going/follow-up instructions were reviewed with the patient before she left the department. IMPRESSION: Status post stereotactic guided core needle biopsy of left breast calcifications followed by tissue marker placement. Pathology is pending. POST PROCEDURE MAMMOGRAM FOR MARKER PLACEMENT. MACRO: None Signed by: Dudley Cerrato 11/16/2024 1:28 PM Dictation workstation: [id number] [facility] BI STEREOTACTIC GUIDED BREAS T LEFT LOCALIZATION AND BIOPSYon 11-16-2024 BI STEREOTACTIC GUIDED BREAST LEFT LOCALIZATION AND BIOPSY Interpreted By: Dudley Cerrato, ADDENDUM: The final pathology for calcifications in the superior central left breast at middle that demonstrates ductal carcinoma in situ, intermediate nuclear grade, solid and cribriform patterns with comedonecrosis and microcalcifications. This is concordant with the imaging findings. Follow-up with patient's surgical provider is recommended. Estimated size of mass/extent of disease: The calcifications measure 0.3 cm on mammogram dated 11/14/2024. Ipsilateral lymph nodes: Were not evaluated. MRI recommendation: At the discretion of the referring surgeon. Method of Detection: Category Sdbt - 3D Screening Signed by: Dudley Cerrato 11/24/2024 8:16 AM -------- ORIGINAL REPORT -------- Dictation workstation: [id number] Interpreted By: Dudley Cerrato, STUDY: BI STEREOTACTIC GUIDED BREAST LEFT LOCALIZATION AND BIOPSY; BI BREAST BIOPSY CLIP IMAGING; 11/16/2024 10:52 am; 11/16/2024 11:12 am ACCESSION NUMBER(S): [id number]; [id number] ORDERING CLINICIAN: FRANCO LOYA INDICATION: Left breast calcifications. ,R92.1 Mammographic calcification found on diagnostic imaging of breast; ,R92.8 Other abnormal and inconclusive findings on diagnostic imaging of breast FINDINGS: PREPROCEDURAL CONSULTATION: The history and physical exam pertinent to the procedure were reviewed and no updates were made. The procedure was explained to the patient including the risks, benefits, and alternatives. Medications were discussed, including any prior use of blood thinning medications by the patient. Patient allergies were reviewed. The risks, including but not limited to infection and bleeding, were reviewed by the performing physician and the patient agreed to undergo the procedure. Prior to the procedure, an audible timeout was done to verify patient identification, site and type of procedure. Dr. Dudley Cerrato, a radiology nurse and two mammography technologists were present. PROCEDURE: A strategic insights lead view of the left breast localized the calcifications of concern in the superior central breast at middle depth. A superior approach was used. The breast was prepped and draped in a sterile manner. 11 mL of buffered 1% lidocaine was injected subcutaneously and then into the deeper tissues. A small incision was made. 6 tissue core specimens were then obtained with a 9-gauge vacuum assisted biopsy needle with minimal bleeding (estimated blood loss less than 10 mL). The specimen radiograph demonstrated multiple calcifications in the tissues. A cork Trimark tissue marker was then placed into the biopsy site. Hemostasis was achieved with manual compression. The patient tolerated the procedure without difficulty. Pathology specimens were labeled with patient identifiers while the patient was in the procedure room, and then sent to the pathology department. The postbiopsy mammogram demonstrates questionable 0.9 cm inferior migration of the biopsy tissue marker with wrist back to the biopsy site. No residual calcifications are identified on the post biopsy mammogram. The patient experienced no complications during the procedure. Home-going/follow-up instructions were reviewed with the patient before she left the department. IMPRESSION: Status post stereotactic guided core needle biopsy of left breast calcifications followed by tissue marker placement. Pathology is pending. POST PROCEDURE MAMMOGRAM FOR MARKER PLACEMENT. MACRO: None Signed by: Dudley Cerrato 11/16/2024 1:28 PM Dictation workstation: [id number] [facility] Comment on above: Order Comment: Centr al superior calcs left breast - HM No Panel Informationon 11-16 Status post stereotactic guided core needle biopsy of left breast calcifications followed by tissue marker placement. Pathology is pending. POST PROCEDURE MAMMOGRAM FOR MARKER PLACEMENT. MACRO: None Signed by: Dudley Cerrato 11/16/2024 1:28 PM Dictation workstation: [id number] MMODAL Interpreted By: Dudley Cerrato, STUDY: BI STEREOTACTIC GUIDED BREAST LEFT LOCALIZATION AND BIOPSY; BI BREAST BIOPSY CLIP IMAGING; 11/16/2024 10:52 am; 11/16/2024 11:12 am ACCESSION NUMBER(S): [id number]; [id number] ORDERING CLINICIAN: FRANCO LOYA INDICATION: Left breast calcifications. ,R92.1 Mammographic calcification found on diagnostic imaging of breast; ,R92.8 Other abnormal and inconclusive findings on diagnostic imaging of breast FINDINGS: PREPROCEDURAL CONSULTATION: The history and physical exam pertinent to the procedure were reviewed and no updates were made. The procedure was explained to the patient including the risks, benefits, and alternatives. Medications were discussed, including any prior use of blood thinning medications by the patient. Patient allergies were reviewed. The risks, including but not limited to infection and bleeding, were reviewed by the performing physician and the patient agreed to undergo the procedure. Prior to the procedure, an audible timeout was done to verify patient identification, site and type of procedure. Dr. Dudley Cerrato, a radiology nurse and two mammography technologists were present. PROCEDURE: A strategic insights lead view of the left breast localized the calcifications of concern in the superior central breast at middle depth. A superior approach was used. The breast was prepped and draped in a sterile manner. 11 mL of buffered 1% lidocaine was injected subcutaneously and then into the deeper tissues. A small incision was made. 6 tissue core specimens were then obtained with a 9-gauge vacuum assisted biopsy needle with minimal bleeding (estimated blood loss less than 10 mL). The specimen radiograph demonstrated multiple calcifications in the tissues. A cork Trimark tissue marker was then placed into the biopsy site. Hemostasis was achieved with manual compression. The patient tolerated the procedure without difficulty. Pathology specimens were labeled with patient identifiers while the patient was in the procedure room, and then sent to the pathology department. The postbiopsy mammogram demonstrates questionable 0.9 cm inferior migration of the biopsy tissue marker with wrist back to the biopsy site. No residual calcifications are identified on the post biopsy mammogram. The patient experienced no complications during the procedure. Home-going/follow-up instructions were reviewed with the patient before she left the department. MMODAL Radiology Study observation (narrative) [facility] Work Phone: No Panel InformationOrdered By: Dudley Cerrato on 11-16-2024 [facility] Work Phone: Surgical pathology studyon 0 11-16-2024 Surgical pathology study Pathology report.total SEE COMMENT Surgical Pathology Case: [id number] Authorizing Provider: STAN Nelson Collected: 11/16/2024 1046 Ordering Location: [facility] Received: 11/16/2024 1303 Center Pathologist: Arlene Ervin MD PhD Specimen: BREAST CORE BIOPSY LEFT, Left breast calcifications Path report.final diagnosis SEE COMMENT A. BREAST CALCIFICATIONS, LEFT, CORE BIOPSY: -- Ductal carcinoma in situ, intermediate nuclear grade, solid and cribriform patterns with comedonecrosis and microcalcifications, see note and synoptic biomarker summary. Note: Immunohistochemical stains for SMMHC and p63 show the presence of myoepithelial cell layer in ductal carcinoma in situ. Laboratory comment By the signature on this report, the individual or group listed as making the Final Interpretation/Diagnosi s certifies that they have reviewed this case. Synoptic report SEE COMMENT Breast Biomarker Reporting Template BREAST BIOMARKER REPORTING TEMPLATE - A Protocol posted: 09/22/2023 Test(s) Performed: Estrogen Receptor (ER) Status: Positive (greater than 10% of cells demonstrate nuclear positivity) Percentage of Cells with Nuclear Positivity: 91-100% Average Intensity of Staining: Strong Test Type: Food and Drug Administration (FDA) cleared (test / vendor): Marla CONFIRM anti-(ER) (SP1) Rabbit Monoclonal Primary Antibody, Marla Multimer Detection Primary Antibody: SP1 Scoring System: No separate scoring system used Cold Ischemia and Fixation Times: Meet requirements specified in latest version of the ASCO / CAP Guidelines Testing Performed on Block Number(s): A1 METHODS Fixative: Formalin Image Analysis: Not performed LAB AP BLOCK FOR ADDITIONAL STUDIES SEE COMMENT Normal Block: A2 Tumor Block: A1 Path report.relevant Hx Left breast stereotactic core guided biopsy (vacuum assisted) for Left breast calcifications Path report.gross observation SEE COMMENT A: Received in formalin, labeled with the patient???s name and hospital number and left breast calcifications, are multiple irregular/cylindrical segments of yellow-white fatty soft tissue aggregating to 3.2 x 2.7 x 0.6 cm. The specimen is submitted in toto in two cassettes. BMG NOTE: Ischemia time: 11/16/24 10:46 AM. This specimen was placed into formalin at: 11/16/24 10:47 AM thank. LAB AP ASR DISCLAIMER One or more of the reagents used to perform assays on this specimen MAY have contained components considered to be analyte specific reagents (ASR's). ASR's have not been cleared or approved by the U.S. Food and Drug Administration. These assays were developed and their performance characteristics determined by the Department of Pathology at [facility]. The FDA does not require this test to go through premarket FDA review. This test is used for clinical purposes. It should not be regarded as investigational or for research. This laboratory is certified under the Clinical Laboratory Improvement Amendments (CLIA) as qualified to perform high complexity clinical laboratory testing. The assays were performed with appropriate positive and negative controls which stained appropriately. Normal [facility] Comment on above: Order Comment: Left breast stereotactic core guided biopsy (vacuum assisted) for Left breast calcifications BI MAMMO LEFT DIAGNOSTICon 0 11-14-2024 BI MAMMO LEFT DIAGNOSTIC Interpreted By: Candelaria Camejo and Beyersdorf Conner STUDY: BI MAMMO LEFT DIAGNOSTIC; 11/14/2024 3:01 pm ACCESSION NUMBER(S): [id number] ORDERING CLINICIAN: FRANCO LOYA INDICATION: Recall from screening for left breast calcifications. ,R92.8 Other abnormal and inconclusive findings on diagnostic imaging of breast COMPARISON: 11/08/2024, 06/16/2022, 12/10/2021, 06/10/2021, 11/14/2020, 05/14/2020, 05/07/2020. FINDINGS: Density: The breasts are heterogeneously dense, which may obscure small masses. There are grouped, pleomorphic calcifications measuring 0.3 cm in the central superior left breast at middle depth. There are stable calcifications in the left axillary lymph node dating back to mammograms in April 2020. There are no suspicious masses. IMPRESSION: Grouped pleomorphic calcifications in the left breast. A stereotactic biopsy is recommended. This was discussed with Franco Loya on the study date. An electronic pre-procedure form has been completed. BI-RADS CATEGORY: BI-RADS Category: 4 Suspicious. Recommendation: Surgical Consultation and Biopsy. Recommended Date: Immediate. Laterality: Left. For any future breast imaging appointments, please call [phone] ([phone] I personally reviewed the image(s)/study and resident interpretation. I agree with the findings as stated by resident Tera Goldsmith. Data analyzed and images interpreted at [place], [place]. Method of Detection: Category Sdbt - 3D Screening MACRO: Critical Finding: See findings. Notification was initiated on 11/14/2024 at 3:14 pm by Tera Goldsmith. (-YCF-) Instructions: Surgical Consultation and Imaging Guided Biopsy. Signed by: Candelaria Camejo 11/14/2024 4:00 PM Dictation workstation: [id number] Abnormal [facility] MG Breast - left ViewsOrdere d By: Candelaria Camejo on 11-14-2024 Interpretation and review of laboratory results Abnormal [facility] Work Phone: [facility] Work Phone: MG Breast - left Viewson Grouped pleomorphic calcifications in the left breast. A stereotactic biopsy is recommended. This was discussed with Franco Loya on the study date. An electronic pre-procedure form has been completed. BI-RADS CATEGORY: BI-RADS Category: 4 Suspicious. Recommendation: Surgical Consultation and Biopsy. Recommended Date: Immediate. Laterality: Left. For any future breast imaging appointments, please call [phone] ([phone]). I personally reviewed the image(s)/study and resident interpretation. I agree with the findings as stated by resident Tera Goldsmith. Data analyzed and images interpreted at [place], [place]. Method of Detection: Category Sdbt - 3D Screening MACRO: Critical Finding: See findings. Notification was initiated on 11/14/2024 at 3:14 pm by Tera Goldsmith. (-YCF-) Instructions: Surgical Consultation and Imaging Guided Biopsy. Signed by: Candelaria Camejo 11/14/2024 4:00 PM Dictation workstation: [id number] MMODAL Interpreted By: Candelaria Camejo and Beyersdorf Conner STUDY: BI MAMMO LEFT DIAGNOSTIC; 11/14/2024 3:01 pm ACCESSION NUMBER(S): [id number] ORDERING CLINICIAN: FRANCO LOYA INDICATION: Recall from screening for left breast calcifications. ,R92.8 Other abnormal and inconclusive findings on diagnostic imaging of breast COMPARISON: 11/08/2024, 06/16/2022, 12/10/2021, 06/10/2021, 11/14/2020, 05/14/2020, 05/07/2020. FINDINGS: Density: The breasts are heterogeneously dense, which may obscure small masses. There are grouped, pleomorphic calcifications measuring 0.3 cm in the central superior left breast at middle depth. There are stable calcifications in the left axillary lymph node dating back to mammograms in April 2020. There are no suspicious masses. MMODAL Candelaria Camejo M D - 11/14/2024 Interpreted By: Candelaria Camejo and Beyersdorf Conner STUDY: BI MAMMO LEFT DIAGNOSTIC; 11/14/2024 3:01 pm ACCESSION NUMBER(S): [id number] ORDERING CLINICIAN: FRANCO LOYA INDICATION: Recall from screening for left breast calcifications. ,R92.8 Other abnormal and inconclusive findings on diagnostic imaging of breast COMPARISON: 11/08/2024, 06/16/2022, 12/10/2021, 06/10/2021, 11/14/2020, 05/14/2020, 05/07/2020. FINDINGS: Density: The breasts are heterogeneously dense, which may obscure small masses. There are grouped, pleomorphic calcifications measuring 0.3 cm in the central superior left breast at middle depth. There are stable calcifications in the left axillary lymph node dating back to mammograms in April 2020. There are no suspicious masses. IMPRESSION: Grouped pleomorphic calcifications in the left breast. A stereotactic biopsy is recommended. This was discussed with Franco Loya on the study date. An electronic pre-procedure form has been completed. BI-RADS CATEGORY: BI-RADS Category: 4 Suspicious. Recommendation: Surgical Consultation and Biopsy. Recommended Date: Immediate. Laterality: Left. For any future breast imaging appointments, please call [phone]). I personally reviewed the image(s)/study and resident interpretation. I agree with the findings as stated by resident Tera Goldsmith. Data analyzed and images interpreted at [place], [place]. Method of Detection: Category Sdbt - 3D Screening MACRO: Critical Finding: See findings. Notification was initiated on 11/14/2024 at 3:14 pm by Tera Goldsmith. (-YCF-) Instructions: Surgical Consultation and Imaging Guided Biopsy. Signed by: Candelaria Camejo 11/14/2024 4:00 PM Dictation workstation: [id number] [facility] Work Phone: Radiology Study observation (narrative) [facility] MURIEL CABRERA ([id number]) 1955 F Date Time Provider Department 11/13/24 SUZIE FOLEY [facility] During your visit today, we recorded the following information about you: Suzie Foley APRN.CAMP TENDER 11/13/2024 12:02 PM Signed Can you please call the patient and let her know that I reviewed her mammogram results from . Mammogram showed some new calcifications in the left breast. As well as the axillary lymph node. They are recommending additional views. I would like to order a diagnostic mammogram including a breast ultrasound. Can you please ask if she is planning to have this completed at again or if already placed orders? Suzie Foley APRN.Megan Roe LPN 11/13/2024 1:17 PM Signed TC to pt. LM to call office, ask for triage nurse to get results. CLIFF Hendrix Laurie Lynn, LPN 11/13/2024 3:45 PM Signed FYI: Spoke with pt and was given results below. Pt reports she has an apt with her oncologist tomorrow 11-14-24 and they are aware she needs additional images but did not mention anything bout an US. Pt has asked that this message be faxed to the for her apt 11-14-24. FAX: [employer] [address] [facility] [phone] Done. CLIFF Cazares Ashley, APRN.CNP 11/15/2024 1:37 PM Signed Noted, thank you Suzie Foley APRN.CNP Allergies As of Date: 11/13/2024 (No Known Allergies) Date Reviewed: 07/20/2024 Reviewed by: Fadia Klein LPN - Fully Assessed Reason for Visit: Results [95] Cmt: Mammogram Prescriptions as of 11/15/2024 - clobetasol (TEMOVATE) 0.05 % ointment Apply to affected area two times a day. - meloxicam (MOBIC) 15 mg tablet Take 1 tablet by mouth once daily. With food. - multivitamin (DAILY MULTIPLE) ORAL Tab Take one(1) tablet daily. Problem List As Of Date 11/13/2024 Noted Resolved Colon Cancer Screening [Z12.11] 08/13/2009 Malignant neoplasm of female breast (HCC) [C50.* Encounter Status:Closed by SUZIE FOLEY on 11/15/24 [facility] BI MAMMO LEFT SCREENING AVTAR SYNTHESISon 11-08-2024 BI MAMMO LEFT SCREENING TOMOSYNTHESIS Interpreted By: Candelaria Camejo, STUDY: BI MAMMO LEFT SCREENING TOMOSYNTHESIS; 11/08/2024 1:58 pm ACCESSION NUMBER(S): [id number] ORDERING CLINICIAN: SELF MAMMOGRAM INDICATION: Screening. c ,Z12.31 Encounter for screening mammogram for malignant neoplasm of breast COMPARISON: 06/16/2022, 12/10/2021, 05/07/2020 FINDINGS: 2D and tomosynthesis images were reviewed at 1 mm slice thickness. Density: The breasts are heterogeneously dense, which may obscure small masses. There are new calcifications in the central superior left breast at middle depth. Calcifications in an axillary lymph node are again seen. No suspicious masses are identified. IMPRESSION: New calcifications in the left breast. Calcifications in an axillary lymph node. Additional diagnostic mammographic views are recommended. BI-RADS CATEGORY: BI-RADS Category: 0 Incomplete; Need Additional Imaging Evaluation Recommendation: Additional Imaging. Recommended Date: Immediate. Laterality: Left. For any future breast imaging appointments, please call [phone]). MACRO: None Signed by: Candelaria Camejo 11/11/2024 10:02 AM Dictation workstation: [id number] [facility] MURIEL CABRERA ([id number]) 1955 F Date Time Provider Department 07/27/24 [facility] During your visit today, we recorded the following information about you: Suzie Foley APRN.CNP 07/27/2024 9:47 AM Signed Can you please call the patient and let her know that I reviewed her lab results. Labs were relatively normal however LDL cholesterol was mildly elevated at 126. Vitamin D was low at 29. I would recommend lifestyle changes at home to help improve cholesterol. Be mindful of processed foods in the diet, increase lean protein, vegetables, get some form of exercise. Recommend taking vitamin D 2000 to 4000 IUs daily. Preop forms have been completed and faxed to surgeon's office. Please let me know if she has any questions. Thank you. Suzie Foley APRN.Shikha Padilla MA 07/27/2024 10:37 AM Signed Pt notified. States that she is plant based and pretty active, she admits she might be able to exercise more. She states she can try to be a little more severe with diet but is not sure how she can do that. She states that her results are about the same as they were 2 years ago. Mammogram order faxed to [facility]. 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 Uses [facility]. She states our office is great. KARLEE Phelps Ashley, APRN.CAMP TENDER 07/27/2024 10:50 AM Signed The following approved medication requests have been transmitted electronically. Requested Prescriptions Signed Prescriptions Disp Refills clobetasol (TEMOVATE) 0.05 % ointment 60 g 3 Sig: Apply to affected area two times a day. Authorizing Provider: SUZIE FOLEY APRN.CAMP TENDER Allergies As of Date: 07/27/2024 (No Known Allergies) Date Reviewed: 07/20/2024 Reviewed by: Fadia Klein LPN - Fully Assessed Reason for Visit: Results [95] Cmt: Labs/Forms Primary Visit Diagnosis:Psoriasis [L40.9] Order(s):clobetasol (TEMOVATE) 0.05 % ointmentApply to affected area two times a day.Disp: 60 gRfl: 3 Prescriptions as of 07/27/2024 - clobetasol (TEMOVATE) 0.05 % ointment Apply to affected area two times a day. - meloxicam (MOBIC) 15 mg tablet Take 1 tablet by mouth once daily. With food. - multivitamin (DAILY MULTIPLE) ORAL Tab Take one(1) tablet daily. Problem List As Of Date 07/27/2024 Noted Resolved Colon Cancer Screening [Z12.11] 08/13/2009 Malignant neoplasm of female breast (HCC) [C50.* Prescriptions ordered this encounter Disp Refills Start End CLOBETASOL 0.05 % TOPICAL OINTMENT 60 g 3 07/27/2024 07/27/2025 Route: TOPICAL Sig: Apply to affected area two times a day. Encounter Status:Closed by SUIZE FOLEY on 07/27/24 Normal [facility] 25([place])D3 [facility] 2023 25-hydroxyvitamin D3 [Mass/Vol] 29.2 ng/mL Low 31.0-80.0 [facility] Comment on above: Order Comment: Speci men Type: BLOOD SPECIMENOrdering Facility: [facility] Address: [address] [place] [address] Performed By: #### 1 989-3 ####[facility] LABCLIA [id number] [place] [address] [place] CBC W Auto Differential pane l (Bld)on 07-25-2024 Basophils (Bld) [#/Vol] 0.06 10*3/uL Normal <0.11 [facility] Comment on above: Order Comment: Speci men Type: BLOOD SPECIMENOrdering Facility: [facility] Address: [address] [place] [address] Performed By: #### 5 7021-8 ####[facility] LABCLIA [id number] [place] [address] [place] Basophils/100 WBC (Bld) 1.1 % Normal [facility] Comment on above: Order Comment: Speci men Type: BLOOD SPECIMENOrdering Facility: [facility] Address: [address] [place] [address] Performed By: #### 5 7021-8 ####[facility] LABCLIA [id number] [place] [address] [place] Differential cell count method Nom (Bld) Auto Normal [facility] Comment on above: Order Comment: Speci men Type: BLOOD SPECIMENOrdering Facility: [facility] Address: [address] [place] [address] Performed By: #### 5 7021-8 ####[facility] LABCLIA [id number] [place] [address] [place] Eosinophils (Bld) [#/Vol] 0.16 10*3/uL Normal <0.46 [facility] Comment on above: Order Comment: Speci men Type: BLOOD SPECIMENOrdering Facility: [facility] Address: [address] [place] [address] Performed By: #### 5 7021-8 ####[facility] LABCLIA [id number] [place] [address] [place] Eosinophils/100 WBC (Bld) 2.9 % Normal [facility] Comment on above: Order Comment: Speci men Type: BLOOD SPECIMENOrdering Facility: [facility] Address: [address] [place] [address] Performed By: #### 5 7021-8 ####[facility] LABCLIA [id number] [place] [address] [place] Erythrocyte distribution width (RBC) [Ratio] 12.8 % Normal 11.5-15.0 [facility] Comment on above: Order Comment: Speci men Type: BLOOD SPECIMENOrdering Facility: [facility] Address: [address] [place] [address] Performed By: #### 5 7021-8 ####[facility] LABCLIA [id number] [place] [address] [place] Hematocrit (Bld) [Volume fraction] 45.2 % Normal 36.0-46.0 [facility] Comment on above: Order Comment: Speci men Type: BLOOD SPECIMENOrdering Facility: [facility] Address: [address] [place] [address] Performed By: #### 5 7021-8 ####[facility] LABCLIA [id number] [place] [address] [place] Hemoglobin (Bld) [Mass/Vol] 14.8 g/dL Normal 11.5-15.5 [facility] Comment on above: Order Comment: Speci men Type: BLOOD SPECIMENOrdering Facility: [facility] Address: [address] [place] [address] Performed By: #### 5 7021-8 ####[facility] LABCLIA [id number] [place] [address] [place] Immature granulocytes (Bld) [#/Vol] 10*3/uL Normal <0.10 [facility] Comment on above: Order Comment: Speci men Type: BLOOD SPECIMENOrdering Facility: [facility] Address: [address] [place] [address] Performed By: #### 5 7021-8 ####[facility] LABCLIA [id number] [place] [address] [place] Immature granulocytes/100 WBC (Bld) 0.2 % Normal [facility] Comment on above: Order Comment: Speci men Type: BLOOD SPECIMENOrdering Facility: [facility] Address: [address] [place] [address] Performed By: #### 5 7021-8 ####[facility] LABCLIA [id number] [place] [address] [place] Lymphocytes (Bld) [#/Vol] 2.20 10*3/uL Normal 1.00-4.00 [facility] Comment on above: Order Comment: Speci men Type: BLOOD SPECIMENOrdering Facility: [facility] Address: [address] [place] [address] Performed By: #### 5 7021-8 ####[facility] LABCLIA [id number] [place] [address] [place] Lymphocytes/100 WBC (Bld) 40.1 % Normal [facility] Comment on above: Order Comment: Speci men Type: BLOOD SPECIMENOrdering Facility: [facility] Address: [address] [place] [address] Performed By: #### 5 7021-8 ####[facility] LABCLIA [id number] [place] [address] [place] MCH (RBC) [Entitic mass] 31.6 pg Normal 26.0-34.0 [facility] Comment on above: Order Comment: Speci men Type: BLOOD SPECIMENOrdering Facility: [facility] Address: [address] [place] [address] Performed By: #### 5 7021-8 ####[facility] LABCLIA [id number] [place] [address] [place] MCHC (RBC) [Mass/Vol] 32.7 g/dL Normal 30.5-36.0 [facility] Comment on above: Order Comment: Speci men Type: BLOOD SPECIMENOrdering Facility: [facility] Address: [address] [place] [address] Performed By: #### 5 7021-8 ####[facility] LABCLIA [id number] [place] [address] [place] MCV (RBC) [Entitic vol] 96.4 fL Normal 80.0-100.0 [facility] Comment on above: Order Comment: Speci men Type: BLOOD SPECIMENOrdering Facility: [facility] Address: [address] [place] [address] Performed By: #### 5 7021-8 ####[facility] LABIA [id number] [place] [address] [place] Monocytes (Bld) [#/Vol] 0.46 10*3/uL Normal <0.87 [facility] Comment on above: Order Comment: Speci men Type: BLOOD SPECIMENOrdering Facility: [facility] Address: [address] [place] [address] Performed By: #### 5 7021-8 ####[facility] LABCLIA [id number] [place] [address] [place] Monocytes/100 WBC (Bld) 8.4 % Normal [facility] Comment on above: Order Comment: Speci men Type: BLOOD SPECIMENOrdering Facility: [facility] Address: [address] [place] [address] Performed By: #### 5 7021-8 ####[facility] LABCLIA [id number] [place] [address] [place] Neutrophils (Bld) [#/Vol] 2.59 10*3/uL Normal 1.45-7.50 [facility] Comment on above: Order Comment: Speci men Type: BLOOD SPECIMENOrdering Facility: [facility] Address: [address] [place] [address] Performed By: #### 5 7021-8 ####[facility] LABCLIA [id number] [place] [address] [place] Neutrophils/100 WBC (Bld) 47.3 % Normal [facility] Comment on above: Order Comment: Speci men Type: BLOOD SPECIMENOrdering Facility: [facility] Address: [address] [place] [address] Performed By: #### 5 7021-8 ####[facility] LABCLIA [id number] [place] [address] [place] Nucleated RBC (Bld) [#/Vol] 10*3/uL Normal <0.01 [facility] Comment on above: Order Comment: Speci men Type: BLOOD SPECIMENOrdering Facility: [facility] Address: [address] [place] [address] Performed By: #### 5 7021-8 ####[facility] LABCLIA [id number] [place] [address] [place] Nucleated RBC/100 WBC (Bld) [Ratio] 0.0 /100 WBC Normal [facility] Comment on above: Order Comment: Speci men Type: BLOOD SPECIMENOrdering Facility: [facility] Address: [address] [place] [address] Performed By: #### 5 7021-8 ####[facility] LABCLIA [id number] [place] [address] [place] Platelet mean volume (Bld) [Entitic vol] 9.8 fL Normal 9.0-12.7 [facility] Comment on above: Order Comment: Speci men Type: BLOOD SPECIMENOrdering Facility: [facility] Address: [address] [place] [address] Performed By: #### 5 7021-8 ####[facility] LABIA [id number] [place] [address] [place] Platelets (Bld) [#/Vol] 321 10*3/uL Normal 150-400 [facility] Comment on above: Order Comment: Speci men Type: BLOOD SPECIMENOrdering Facility: [facility] Address: [address] [place] [address] Performed By: #### 5 7021-8 ####[facility] LABIA [id number] [place] [address] [place] RBC (Bld) [#/Vol] 4.69 10*6/uL Normal 3.90-5.20 [facility] Comment on above: Order Comment: Speci men Type: BLOOD SPECIMENOrdering Facility: [facility] Address: [address] [place] [address] Performed By: #### 5 7021-8 ####[facility] LABIA [id number] [place] [address] [place] WBC (Bld) [#/Vol] 5.48 10*3/uL Normal 3.70-11.00 [facility] Comment on above: Order Comment: Speci men Type: BLOOD SPECIMENOrdering Facility: [facility] Address: [address] [place] [address] Performed By: #### 5 7021-8 ####[facility] LABIA [id number] [place] [address] [place] Comprehensive metabolic 2000 panelon 07-25-2024 Albumin [Mass/Vol] 4.4 g/dL Normal 3.9-4.9 [facility] Comment on above: Order Comment: Speci men Type: BLOOD SPECIMENOrdering Facility: [facility] Address: [address] [place] [address] Performed By: #### 2 4331-1, ####[facility] LABCLIA [id number] [place] [address] [place] ALP [Catalytic activity/Vol] 61 U/L Normal 34-123 [facility] Comment on above: Order Comment: Speci men Type: BLOOD SPECIMENOrdering Facility: [facility] Address: [address] [place] [address] Performed By: #### 2 4331-1, ####[facility] LABCLIA [id number] [place] [address] [place] ALT [Catalytic activity/Vol] 19 U/L Normal 7-38 [facility] Comment on above: Order Comment: Speci men Type: BLOOD SPECIMENOrdering Facility: [facility] Address: [address] [place] [address] Performed By: #### 2 4331-1, ####[facility] LABCLIA [id number] [place] [address] [place] Anion gap [Moles/Vol] 10 mmol/L Normal 8-15 [facility] Comment on above: Order Comment: Speci men Type: BLOOD SPECIMENOrdering Facility: [facility] Address: [address] [place] [address] Performed By: #### 2 4331-1, ####[facility] LABCLIA [id number] [place] [address] [place] AST [Catalytic activity/Vol] 31 U/L Normal 13-35 [facility] Comment on above: Order Comment: Speci men Type: BLOOD SPECIMENOrdering Facility: [facility] Address: [address] [place], [place] [address] Performed By: #### 2 4331-1, 45157-0 ####[facility] LABCLIA [id number] [address] [address] [place] Bilirubin [Mass/Vol] 0.4 mg/dL Normal 0.2-1.3 [facility] Comment on above: Order Comment: Speci men Type: BLOOD SPECIMENOrdering Facility: [facility] Address: [address] [place], [place] [address] Performed By: #### 2 4331-1, ####[facility] LABIA [id number] [place] [address] [place] Calcium [Mass/Vol] 9.8 mg/dL Normal 8.5-10.2 [facility] Comment on above: Order Comment: Speci men Type: BLOOD SPECIMENOrdering Facility: [facility] Address: [address] [place], [place] [address] Performed By: #### 2 4331-, ####[facility] LABIA [id number] [place] [address] [place] Chloride [Moles/Vol] 105 mmol/L Normal 98-107 [facility] Comment on above: Order Comment: Speci men Type: BLOOD SPECIMENOrdering Facility: [facility] Address: [address] [place], [place] [address] Performed By: #### 2 4331-1, ####[facility] LABIA [id number] [place] [id number] [place] CO2 [Moles/Vol] 27 mmol/L Normal 22-30 [facility] Comment on above: Order Comment: Speci men Type: BLOOD SPECIMENOrdering Facility: [facility] Address: [address] [place], [place] [address] Performed By: #### 2 4331-1, 39771-4 ####[facility] LABCLIA [id number] [address] [address] [place] Creatinine [Mass/Vol] 0.78 mg/dL Normal 0.58-0.96 [facility] Comment on above: Order Comment: Reji thompson Type: BLOOD SPECIMENOrdering Facility: [facility] Address: [address] [place] [address] Performed By: #### 2 4331-1, 89280-6 ####[facility] LABIA [id number] [place] [address] [place] Creatinine and Glomerular filtration rate.predicted panel (S/P/Bld) 82 mL/min/1.73m??? Normal >=60 [facility] Comment on above: Order Comment: Diamond jay Type: BLOOD SPECIMENOrdering Facility: [facility] Address: [address] [place] [address] Result Comment: Maria Luz mated Glomerular Filtration Rate (eGFR) is calculated using the 2020 CKD-EPI creatinine equation. This equation utilizes serum creatinine, sex, and age as parameters. The creatinine assay has traceable calibration to isotope dilution-mass spectrometry. Refer to KDIGO guidelines for clinical interpretation. In patients with unstable renal function, e.g. those with acute kidney injury, the eGFR may not accurately reflect actual GFR. Performed By: #### 2 4331-1, 15319-7 ####[facility] LABIA [id number] [place] [id number] [place] Glucose [Mass/Vol] 93 mg/dL Normal 74-99 [facility] Comment on above: Order Comment: Reji ajy Type: BLOOD SPECIMENOrdering Facility: [facility] Address: [address] [place] [address] Result Comment: The [place] Diabetes Association (ADA) provides guidance for cutoff values for fasting glucose and random glucose. The ADA defines fasting as no caloric intake for at least 8 hours. Fasting plasma glucose results between 100 to 125 mg/dL indicate increased risk for diabetes (prediabetes). Fasting plasma glucose results greater than or equal to 126 mg/dL meet the criteria for diagnosis of diabetes. In the absence of unequivocal hyperglycemia, results should be confirmed by repeat testing. In a patient with classic symptoms of hyperglycemia or hyperglycemic crisis, random plasma glucose results greater than or equal to 200 mg/dL meet the criteria for diagnosis of diabetes. Reference: Standards of Medical Care in Diabetes 2016, [place] [employer]. Diabetes Care. 2016.39(Suppl 1). Performed By: #### 2 4331-1, 61889-0 ####[facility] LABCLIA [id number] [place] [address] [place] Potassium [Moles/Vol] 4.9 mmol/L Normal 3.7-5.1 [facility] Comment on above: Order Comment: Speci men Type: BLOOD SPECIMENOrdering Facility: [facility] Address: [address] [place] [address] Performed By: #### 2 4331-, 76226-5 ####[facility] LABCLIA [id number] [place] [address] [place] Protein [Mass/Vol] 6.8 g/dL Normal 6.3-8.0 [facility] Comment on above: Order Comment: Speci men Type: BLOOD SPECIMENOrdering Facility: [facility] Address: [address] [place] [address] Performed By: #### 2 4331-, ####[facility] LABCLIA [id number] [place] [address] [place] Sodium [Moles/Vol] 142 mmol/L Normal 136-144 [facility] Comment on above: Order Comment: Speci men Type: BLOOD SPECIMENOrdering Facility: [facility] Address: [address] [place] [address] Performed By: #### 2 4331-, 70269-8 ####[facility] LABCLIA [id number] [address] [address] [place] Urea nitrogen [Mass/Vol] 11 mg/dL Normal 7-21 [facility] Comment on above: Order Comment: Speci men Type: BLOOD SPECIMENOrdering Facility: [facility] Address: [address] [place] [address] Performed By: #### 2 4331-1, 58474-9 ####[facility] LABCLIA [id number] [address] [address] [place] Lipid 1996 panelon 4 Cholesterol [Mass/Vol] 246 mg/dL High <200 [facility] Comment on above: Order Comment: Speci men Type: BLOOD SPECIMENOrdering Facility: [facility] Address: [address] [place] [address] Result Comment: <200 mg/dL, Desirable 200-239 mg/dL, Borderline high >239 mg/dL, High Performed By: #### 2 4331-1, ####[facility] LABCLIA [id number] [place] [address] [place] Cholesterol in HDL [Mass/Vol] 99 mg/dL Normal >39 [facility] Comment on above: Order Comment: Speci men Type: BLOOD SPECIMENOrdering Facility: [facility] Address: [address] [place] [address] Result Comment: 40-5 9 mg/dL, Acceptable >59 mg/dL, High: Negative risk factor for coronary heart disease <40 mg/dL, Low: Positive risk factor for coronary heart disease Performed By: #### 2 4331-1, ####[facility] LABCLIA [id number] [address] [place] Cholesterol in LDL [Mass/Vol] 126 mg/dL High <100 [facility] Comment on above: Order Comment: Speci men Type: BLOOD SPECIMENOrdering Facility: [facility] Address: [address] [place] [address] Result Comment: <100 mg/dL, Optimal 100-129 mg/dL, Near optimal/above optimal 130-159 mg/dL, Borderline high 160-189 mg/dL, High >189 mg/dL, Very high Secondary prevention optimal LDL Cholesterol levels are recommended to be < 70 mg/dL Performed By: #### 2 4331-1, 01581-5 ####[facility] LABCLIA [id number] [place] [address] [place] Cholesterol in LDL/Cholesterol in HDL [Mass ratio] 1.27 {ratio} Normal <2.54 [facility] Comment on above: Order Comment: Reji men Type: BLOOD SPECIMENOrdering Facility: [facility] Address: [address] [place] [address] Result Comment: Refe rence: 1. National Cholesterol Education Program ATP III Guideline At-A-Glance Quick Desk Reference: National Heart, Lung, and Blood [place]. National Institutes of Health. 2001: NIH Publication No. 01-3305. 2. An International Atherosclerosis Society position paper: global recommendations for the management of dyslipidemia: executive summary, Atherosclerosis. 2014: 232(2):410-413. Performed By: #### 2 4331-1, 14137-9 ####[facility] LABIA [id number] [place] [address] [place] Cholesterol in VLDL [Mass/Vol] 21 mg/dL Normal <30 [facility] Comment on above: Order Comment: Reji thompson Type: BLOOD SPECIMENOrdering Facility: [facility] Address: [address] [place] [address] Performed By: #### 2 4331-1, 24212-7 ####[facility] LABIA [id number] [place] [address] [place] Cholesterol non HDL [Mass/Vol] 147 mg/dL High <130 [facility] Comment on above: Order Comment: Reji thompson Type: BLOOD SPECIMENOrdering Facility: [facility] Address: [address] [place] [address] Result Comment: <130 mg/dL, Optimal 130-159 mg/dL, Near optimal/above optimal 160-189 mg/dL, Borderline high 190-219 mg/dL, High >219 mg/dL, Very high Secondary prevention optimal non HDL Cholesterol levels are recommended to be <100 mg/dL Performed By: #### 2 4331-1, 70505-1 ####[facility] LABCLIA [id number] [place] [address] [place] Cholesterol.total/Chol esterol in HDL [Mass ratio] 2.48 {ratio} Normal <5.10 [facility] Comment on above: Order Comment: Speci men Type: BLOOD SPECIMENOrdering Facility: [facility] Address: [address] [place] [address] Performed By: #### 2 4331-1, 82900-7 ####[facility] LABCLIA [id number] [address] STATES OF [facility] FASTING TIME 12 hrs Normal [facility] Comment on above: Order Comment: Speci men Type: BLOOD SPECIMENOrdering Facility: [facility] Address: [address] [place] [address] Performed By: #### 2 4331-1, ####[facility] LABCLIA [id number] [place] [address] [place] Triglyceride [Mass/Vol] 105 mg/dL Normal <150 [facility] Comment on above: Order Comment: Speci men Type: BLOOD SPECIMENOrdering Facility: [facility] Address: [address] [place] [address] Result Comment: <150 mg/dL, Normal 150-199 mg/dL, Borderline high 200-499 mg/dL, High >499 mg/dL, Very high Performed By: #### 2 4331-1, 27621-7 ####[facility] LABCLIA [id number] [place] [address] [place] CNOVon 07-20-2024 CNOV Office Visit (FAMPWS ) GIAN MURIEL CORONA ([id number]) 1955 F Date Time Provider Department 07/20/24 1:00 PM SUZIE FOLEY During your visit today, we recorded the following information about you: Pulse Respiration Blood pressure Weight 81/minute 16/minute 116/74 64.6 kg Suzie Foley APRN.CNP 07/20/2024 6:21 PM Signed This is a 68 year old female who presents today with: Patient presents with: Pre-Op Exam HISTORY OF PRESENT ILLNESS: Muriel Corona is a 68 year old female. Patient presents with: Pre-Op Exam Here in the office for preop exam. Will be having blepharoplasty on bilateral eyes with Dr. Morse On 08/18/2024. [facility] in [place]. Some difficulty with peripheral vision due to eyelids. Using progressive glasses as needed. No eye pain. Not currently taking any prescription medication. History of Breast Cancer, following with oncology, refers that oncology released her due to stable mammograms. 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 Following with [facility], Dr. Golden. Vaccines: Denies wanting any vaccines at this time. PAST MEDICAL HISTORY: PAST MEDICAL HISTORY Diagnosis Date Malignant neoplasm of breast (female), unspecified site PAST SURGICAL HISTORY Procedure Laterality Date DELIVERY ONLY 04-20-93 , low cervical COLONOSCOPY FLX DX W/COLLJ SPEC WHEN PFRMD 08/16/09 Normal COLONOSCOPY FLX DX W/COLLJ SPEC WHEN PFRMD 12/18/2019 patient felt like she got too much sedation LUMPECTOMY/RADIOTHERAPY DIAG MAMM/A10 10-25-07 right MAST MODF RAD W/AX LYMPH NOD W/WO PECT/SEAN MIN 03-07-08 right, with SAEED PAST SURGICAL HISTORY OF 07/19 incision revision abd ALLERGIES Patient has no known allergies. MEDICATIONS Current Outpatient Medications Medication Sig CALCIUM CARBONATE/VITAMIN D3 (VITAMIN D-3 ORAL) Take by mouth. Taking 5000 IU daily multivitamin (DAILY MULTIPLE) ORAL Tab Take one(1) tablet daily. No current facility-administered medications for this visit. FAMILY HISTORY Problem Relation Age of Onset Allergies Mother Allergies Brother Colon Cancer Paternal Grandmother Cancer Paternal Grandfather Social History Tobacco Use Smoking status: Former Current packs/day: 0.00 Types: Cigarettes Quit date: 02/12/1991 Years since quittin.4 Smokeless tobacco: Never Substance Use Topics Alcohol use: Yes Alcohol/week: 3.0 standard drinks of alcohol Types: 3 Glasses of Wine (5oz) per week Comment: SOCIALLY Drug use: No REVIEW OF SYSTEMS GENERAL: No weight loss, malaise or fevers/chills HEENT: + Difficulty with peripheral vision NECK: Negative for lumps, goiter, pain and significant neck swelling RESPIRATORY: Negative for cough, hemoptysis, wheezing, dyspnea or shortness of breath CARDIOVASCULAR: Negative for chest pain, leg swelling, orthopnea, or palpitations GI: No nausea, vomiting, or diarrhea/constipation. No hematochezia/melena. No heartburn or reflux symptoms. : No history of dysuria, frequency or incontinence MUSCULOSKELETAL: Negative for joint pain or swelling. SKIN: Negative for lesions, rash, and itching ENDOCRINE: Negative for cold or heat intolerance, polyuria, polydipsia and goiter NEURO: No history of headaches, syncope, paralysis, seizures or tremors MOOD: Negative for depression, anxiety, or suicidal ideation. EXAM: BP 116/74 Pulse 81 Resp 16 Wt 64.6 kg (142 lb 6.7 oz) LMP 06/11/2006 SpO2 98% BMI 26.05 kg/m? PHYSICAL EXAM: General Appearance: Well appearing, alert, in no acute distress, well-hydrated, well nourished. Skin: Skin color, texture, turgor normal, no suspicious rashes or lesions. Head: Normocephalic, no masses, lesions, tenderness or abnormalities. Eyes: Anicteric sclera. Pupils are equally round and reactive to light. Extraocular movements are intact. Lungs: Lungs clear to auscultation. No wheezing, rhonchi, rales. Heart: RRR without murmur, gallop, or rubs. No ectopy. Extremities: No deformities, edema, skin discoloration, clubbing or cyanosis. Good capillary refill. Peripheral Pulses: Normal, Capillary refill <2secs, strong peripheral pulses, Pulses palpable. Neurologic: Gait normal. Sensation grossly intact. ASSESSMENT/PLAN: 1. Preoperative clearance - ICD9: V72.84, ICD10: Z01.818 (primary diagnosis) - Get labs completed. - Tentatively cleared for surgery, once lab results are reviewed, preop forms will be completed and faxed back to Dr. Morse's office. - COMPLETE BLOOD COUNT AND DIFFERENTIAL - COMPREHENSIVE METABOLIC PANEL 2. Excess skin of upper eyelids of both eyes - ICD9: 374.34, ICD10: H02.31, H02.34 - Keep scheduled surgery date. 3. Vitamin D deficiency - ICD9: 268.9, ICD10: E55.9 - VITAMIN D 25 HYDROXY 4. Elevated LDL cholesterol level - ICD9: 272.0, ICD10: E78.00 - LIPID PANEL (more content not included)... Normal [facility] MURIEL CABRERA ([id number]) 1955 F Date Time Provider Department 07/14/24 [facility] During your visit today, we recorded the following information about you: Evangelina Osuna MA 07/14/2024 11:08 AM Signed Type of form: Medical Clearance from [facility] [place]. Pt scheduled to have Blepharoplasty b/l on 08/18/24 Form received via fax When form is completed, Fax form to [phone] Form has been forwarded to Physician Desk: Dr. Persaud. Pt has not been seen in this office since 2020. She was seen last year in August by Suzie Foley CNP for a tick bite. KARLEE Womack Mark D, MD 07/14/2024 4:02 PM Signed Needs appt for pre-op MD Shabbir Murguia Rilee, MA 07/14/2024 4:13 PM Signed Pt has appt on 07/20/24 with Suzie Foley CNP. Will route forms to her office to complete. Evangelina Osuna MA Allergies As of Date: 07/14/2024 (No Known Allergies) Date Reviewed: 08/17/2023 Reviewed by: Suzie Foley APRN.CAMP TENDER - Fully Assessed Reason for Visit: Forms [913] Cmt: Surgical Clearance. Prescriptions as of 10/23/2024 - clobetasol (TEMOVATE) 0.05 % ointment Apply to affected area two times a day. - meloxicam (MOBIC) 15 mg tablet Take 1 tablet by mouth once daily. With food. - multivitamin (DAILY MULTIPLE) ORAL Tab Take one(1) tablet daily. Problem List As Of Date 07/14/2024 Noted Resolved Colon Cancer Screening [Z12.11] 08/13/2009 Malignant neoplasm of female breast (HCC) [C50.* Encounter Status:Closed by EVANGELINA OSUNA on 10/23/24 [facility] Surgery Specimen Level Hasmukh 02-11-2023 Surgery Specimen Level IV Patient Age/Sex Location Account Attending Physician MURIEL CABRERA 67/F LABSPEC [id number] Dr. Elvis Marcano MD Specimen: [id number] Received: 02/11/23 Status: [place] Num: [id number] Spec Type: Lesion Subm Dr: Dr. Elvis Marcano MD HEADER OPERATION: Excision pterygium, right eye PRE-OP DIAGNOSIS: Excision pterygium, right eye, increased size and thickness TISSUE SUBMITTED: Pterygium, nasal, right eye MICROSCOPIC DIAGNOSIS Pterygium right eye, biopsy: Pterygium with elastosis. AM:nael 02/15/2023 MICROSCOPIC DESCRIPTION Slides are reviewed. GROSS DESCRIPTION Received in fixative is one container labeled with the patient's name and designated pterygium, nasal, right eye. The specimen consists of a piece of dewitt-brown soft tissue measuring 0.3 x 0.1 x 0.1 cm. The entire specimen is submitted in one cassette. / SJ:nael 02/12/2023 TC:5 CPT: 25429 Patient Age/Sex Location Account Attending Physician GIAN MURIEL CORONA 67/F LABSPEC [id number] Dr. Elvis Marcano MD Signed (signature on file) Dr. Geronimo Davis DO 02/15/23 1219 Normal [facility] Comment on above: Performed By: #### P JULIANA #### [facility] Laboratory [facility] Wendy LawsonCroghan, [place], [id number] DXA-AXIAL SKELETONon 022 [facility] Vital Signs Date Time Vital Sign Value Performing Clinician Facility 03-20-2025 16:05-0400 Body temperature 97.4 [degF] Dr. Julián Sheldon MD Work Phone: [facility] 03-20-2025 16:05-0400 Diastolic blood pressure 82 mm[Hg] Dr. Julián Sheldon MD Work Phone: [facility] 03-20-2025 16:05-0400 Heart rate 78 /min Dr. Julián Sheldon MD Work Phone: [facility] 03-20-2025 16:05-0400 Respiratory rate 20 /min Dr. Julián Sheldon MD Work Phone: [facility] 03-20-2025 16:05-0400 SaO2% (BldA) [Mass fraction] 100 % Dr. Julián Sheldon MD Work Phone: [facility] 03-20-2025 16:05-0400 Systolic blood pressure 133 mm[Hg] Dr. Julián Sheldon MD Work Phone: [facility] 03-20-2025 13:23-0400 Body height 157.[address] Julián Sheldon MD Work Phone: [facility] 02-25-2025 14:39-0400 Body mass index (BMI) [Ratio] 27.82 kg/m2 Larisa Swanson APRN.CAMP TENDER Work Phone: [facility] 02-25-2025 14:39-0400 Body temperature 98.1 [degF] Larisa Swanson APRN.CAMP TENDER Work Phone: [facility] 02-25-2025 14:39-0400 Body weight 69 kg Larisa Swanson APRN.CAMP TENDER Work Phone: [facility] 02-25-2025 14:39-0400 Diastolic blood pressure 76 mm[Hg] Larisa Swanson APRN.CAMP TENDER Work Phone: [facility] 02-25-2025 14:39-0400 Heart rate 90 /min Larisa Swanson APRN.CAMP TENDER Work Phone: [facility] 02-25-2025 14:39-0400 Respiratory rate 18 /min Larisa Swanson APRN.CAMP TENDER Work Phone: [facility] 02-25-2025 14:39-0400 SaO2% (BldA) [Mass fraction] 96 % Larisa Swanson APRN.CAMP TENDER Work Phone: [facility] 02-25-2025 14:39-0400 Systolic blood pressure 116 mm[Hg] Larisa Swanson APRN.CAMP TENDER Work Phone: [facility] 02-06-2025 12:47-0400 Body height 154.7 cm Simin Longo MD Work Phone: [facility] 02-06-2025 12:47-0400 Body mass index (BMI) [Ratio] 29.32 kg/m2 Simin Longo MD Work Phone: [facility] 02-06-2025 12:47-0400 Body temperature 97.2 [degF] Simin Longo MD Work Phone: [facility] 02-06-2025 12:47-0400 Body weight 70.17 kg Simin Longo MD Work Phone: [facility] 02-06-2025 12:47-0400 Diastolic blood pressure 79 mm[Hg] Simin Longo MD Work Phone: [facility] 02-06-2025 12:47-0400 Heart rate 79 /min Simin Longo MD Work Phone: [facility] 02-06-2025 12:47-0400 Respiratory rate 16 /min Simin Longo MD Work Phone: [facility] 02-06-2025 12:47-0400 SaO2% (BldA) [Mass fraction] 97 % Simin Longo MD Work Phone: [facility] 02-06-2025 12:47-0400 Systolic blood pressure 130 mm[Hg] Simin Longo MD Work Phone: [facility] 01-25-2025 13:08-0400 Body mass index (BMI) [Ratio] 27.87 kg/m2 Suzie Briggs DO Work Phone: [facility] 01-25-2025 13:08-0400 Body temperature 97.9 [degF] Suzie Briggs DO Work Phone: [facility] 01-25-2025 13:08-0400 Body weight 69.13 kg Suzie Briggs DO Work Phone: [facility] 01-25-2025 13:08-0400 Diastolic blood pressure 81 mm[Hg] Suzie Briggs DO Work Phone: [facility] 01-25-2025 13:08-0400 Heart rate 79 /min Suzie Briggs DO Work Phone: [facility] 01-25-2025 13:08-0400 SaO2% (BldA) [Mass fraction] 93 % Suzie Briggs DO Work Phone: [facility] 01-25-2025 13:08-0400 Systolic blood pressure 122 mm[Hg] Suzie Briggs DO Work Phone: [facility] 01-04-2025 12:11-0400 Body temperature 97.3 [degF] Suzie Briggs DO Work Phone: [facility] 01-04-2025 12:11-0400 Diastolic blood pressure 72 mm[Hg] Suzie Briggs DO Work Phone: [facility] 01-04-2025 12:11-0400 Heart rate 76 /min Suzie Briggs DO Work Phone: [facility] 01-04-2025 12:11-0400 Respiratory rate 16 /min Suziegisselle Briggs DO Work Phone: [facility] 01-04-2025 12:11-0400 SaO2% (BldA) [Mass fraction] 98 % Suzie Briggs DO Work Phone: [facility] 01-04-2025 12:11-0400 Systolic blood pressure 130 mm[Hg] Suzie Briggs DO Work Phone: [facility] 01-04-2025 08:03-0400 Body height 157.5 cm Suzie Briggs DO Work Phone: [facility] 01-04-2025 08:03-0400 Body mass index (BMI) [Ratio] 26.89 kg/m2 Suzie Briggs DO Work Phone: [facility] 01-04-2025 08:03-0400 Body weight 66.68 kg Suzie Briggs DO Work Phone: [facility] 11-30-2024 08:29-0500 Body mass index (BMI) [Ratio] 27.66 kg/m2 Suzie Briggs DO Work Phone: [facility] 11-30-2024 08:29-0500 Body temperature 97.7 [degF] Suzie Briggs DO Work Phone: [facility] 11-30-2024 08:29-0500 Body weight 69.4 kg Suzie Briggs DO Work Phone: [facility] 11-30-2024 08:29-0500 Diastolic blood pressure 85 mm[Hg] Suzie Briggs DO Work Phone: [facility] 11-30-2024 08:29-0500 Heart rate 78 /min Suzie Briggs DO Work Phone: [facility] 11-30-2024 08:29-0500 SaO2% (BldA) [Mass fraction] 97 % Suzie Briggs DO Work Phone: [facility] 11-30-2024 08:29-0500 Systolic blood pressure 138 mm[Hg] Suzie Briggs DO Work Phone: [facility] 07-20-2024 13:03-0400 Body mass index (BMI) [Ratio] 26.05 kg/m2 Suzie Foley APRN.CAMP TENDER Work Phone: [facility] 07-20-2024 13:03-0400 Body weight 64.6 kg Suzie Foley APRN.CAMP TENDER Work Phone: [facility] 07-20-2024 13:03-0400 Diastolic blood pressure 74 mm[Hg] Suzie Foley APRN.CAMP TENDER Work Phone: [facility] 07-20-2024 13:03-0400 Heart rate 81 /min Suzie Foley APRN.CAMP TENDER Work Phone: [facility] 07-20-2024 13:03-0400 Respiratory rate 16 /min Suziegisselle Zelayahof COMMERCIAL COORDINATOR.CAMP TENDER Work Phone: [facility] 07-20-2024 13:03-0400 SaO2% (BldA) [Mass fraction] 98 % Suziegisselle Zelayahof COMMERCIAL COORDINATOR.CAMP TENDER Work Phone: [facility] 07-20-2024 13:03-0400 Systolic blood pressure 116 mm[Hg] Suzie Tannhof COMMERCIAL COORDINATOR.CAMP TENDER Work Phone: [facility] 08-16-2023 15:07-0500 Body weight 66.22 kg Suziegisselle Zelayahof COMMERCIAL COORDINATOR.CAMP TENDER Work Phone: [facility] 08-16-2023 15:07-0500 Diastolic blood pressure 80 mm[Hg] Suzie Tannhof COMMERCIAL COORDINATOR.CAMP TENDER Work Phone: [facility] 08-16-2023 15:07-0500 Heart rate 80 /min Suzie Zelayahof COMMERCIAL COORDINATOR.CAMP TENDER Work Phone: [facility] 08-16-2023 15:07-0500 Respiratory rate 16 /min Suzie Tannhof COMMERCIAL COORDINATOR.CAMP TENDER Work Phone: [facility] 08-16-2023 15:07-0500 Systolic blood pressure 128 mm[Hg] Suzie Zelayahof COMMERCIAL COORDINATOR.CAMP TENDER Work Phone: [facility] Encounters Encounter Date Encounter Type Care Provider Facility Start: 03-20-2025 End: 03-20-2025 Emergency department patient visit Dr. Julián Sheldon MD Work Phone: -Emergency Department Work Phone: Start: 02-25-2025 End: 02-25-2025 Patient encounter procedure Larisa Swanson COMMERCIAL COORDINATOR.CAMP TENDER Work Phone: [facility] Comment on above: Bug bite, initial en counter (Primary Dx); Cellulitis of skin Start: 02-25-2025 End: 02-25-2025 ambulatory LARISA SWANSON Facility:[facility] Start: 02-06-2025 End: 02-06-2025 Office outpatient new 60 minutes Simin Longo MD Work Phone: [facility] Comment on above: Ductal carcinoma in situ of left breast Start: 02-06-2025 End: 02-06-2025 ambulatory SIMIN LONGO [facility] Start: 02-06-2025 End: 02-06-2025 ambulatory SIMIN LONGO [facility] Start: 01-25-2025 End: 01-25-2025 ambulatory SUZIE BRIGGS [facility] Start: 01-25-2025 End: 01-25-2025 Postop follow up visit related to original px Suzie Briggs DO Work Phone: [facility] Comment on above: Ductal carcinoma in situ of left breast Start: 01-04-2025 End: 01-04-2025 ambulatory SUZIE Durand [place] Start: 01-04-2025 End: 01-04-2025 Subsequent hospital visit by physician Suzie Briggs DO Work Phone: [facility] [place] Comment on above: Ductal carcinoma in situ of left breast Start: 12-26-2024 End: 12-26-2024 ambulatory BRIANNA [facility] Start: 12-26-2024 End: 12-26-2024 ambulatory SUZIE Durand [place] Start: 12-26-2024 End: 12-26-2024 Encounter for other preprocedural examination SUZIE Durand [place] Start: 12-26-2024 End: 12-26-2024 Subsequent hospital visit by physician Azam Grant 2 [facility] Comment on above: Ductal carcinoma in situ of left breast Start: 12-26-2024 End: 12-26-2024 ambulatory SUZIE Durand [place] Start: 12-13-2024 End: 12-13-2024 ambulatory [facility] Start: 12-08-2024 End: 12-08-2024 ambulatory MICHAEL HENRY [facility] Start: 11-30-2024 End: 11-30-2024 Telephone encounter Suzie Foley APRN.CAMP TENDER Work Phone: [facility] Comment on above: Medication Request Start: 11-30-2024 End: 11-30-2024 ambulatory SUZIE BRIGGS [facility] Start: 11-30-2024 End: 11-30-2024 Office outpatient new 60 minutes Suzie Kizzy Rao DO Work Phone: [facility] Comment on above: Ductal carcinoma in situ of left breast Start: 11-16-2024 End: 11-16-2024 Subsequent hospital visit by physician [facility] [place] Comment on above: Abnormality of left breast on screening mammogram (Primary Dx) Breast calcification s Other abnormal and i nconclusive findings on diagnostic imaging of breast Start: 11-16-2024 End: 11-16-2024 ambulatory CANDELARIA CAMEJO [facility] Start: 11-14-2024 End: 11-14-2024 Subsequent hospital visit by physician [facility] [place] Comment on above: Abnormality of left breast on screening mammogram; History of right breast cancer Start: 11-14-2024 End: 11-14-2024 ambulatory FRANCO LOYA [facility] Start: 11-13-2024 End: 11-15-2024 Telephone encounter Suzie Foley APRN.CAMP TENDER Work Phone: [facility] [place] Comment on above: Results (Mammogram ) Start: 11-08-2024 End: 11-08-2024 Subsequent hospital visit by physician [facility] [place] Comment on above: Malignant neoplasm o f unspecified site of right female breast; Encounter for screening mammogram for malignant neoplasm of breast Start: 11-08-2024 End: 11-08-2024 ambulatory SUZIE ZELAYAWaylon [facility] Start: 09-05-2024 End: 09-05-2024 ambulatory María Garsia MA [facility] Start: 09-05-2024 End: 09-05-2024 Patient encounter procedure María Garsia MA [facility] Comment on above: Population Health Na vigation Outreach ([facility] WORK[facility]ENCH JONNIE PCSA ) Start: 08-07-2024 End: 08-07-2024 ambulatory Suzie Foley APRN.CAMP TENDER Work Phone: [facility] Comment on above: Mammo request to Guy Start: 07-27-2024 End: 07-27-2024 Telephone encounter Suzie Foley APRN.CNP Work Phone: [facility] [place] Comment on above: Results (Labs/Forms ) Start: 07-25-2024 End: 07-25-2024 ambulatory [facility] Facility:[facility] Start: 07-25-2024 Encounter for other preprocedural examination LARISA SWANSON [facility] Start: 07-20-2024 End: 07-20-2024 Patient encounter procedure Suzie Alaina PINEDA.CAMP TENDER Work Phone: [facility] [place] Comment on above: Preoperative clearan ce (Primary Dx); Excess skin of upper eyelids of both eyes; Vitamin D deficiency; Elevated LDL cholesterol level; Malignant neoplasm of right female breast, unspecified estrogen receptor status, unspecified site of breast (HCC); Arthritis of right foot Start: 07-20-2024 End: 07-20-2024 Preoperative state Suzie Foley APRN.CAMP TENDER Work Phone: [facility] Work Phone: Start: 07-20-2024 End: 07-20-2024 ambulatory [facility] Facility:[facility] Start: 07-14-2024 End: 10-23-2024 Telephone encounter Jessica Persaud MD Work Phone: [facility] [place] Comment on above: Forms (Surgical Maria Guadalupeseema crawford. ) Start: 06-27-2024 End: 06-27-2024 ambulatory Mana Gilbert KARLEE [facility] Start: 06-27-2024 End: 06-27-2024 Patient encounter procedure Mana Gilbert KARLEE [facility] Comment on above: Population Health Na vigation Outreach (/[facility], [facility], Care gaps, HCC, [place] PCSA//) Start: 08-16-2023 End: 08-16-2023 Patient encounter procedure Suzie Foley COMMERCIAL COORDINATOR.CAMP TENDER Work Phone: [facility] Comment on above: Tick bite of back, i nitial encounter (Primary Dx); Hyperlipidemia, unspecified hyperlipidemia type; Vitamin D deficiency Start: 02-11-2023 End: 02-11-2023 Patient encounter procedure [facility]-Laboratory, Specimen Start: 02-11-2023 End: 02-11-2023 ambulatory Elvis Marcano [facility] Work Phone: Start: 08-28-2022 Telephone encounter Jessica gage MD Work Phone: [facility] Comment on above: Results Start: 12-31-2021 End: 12-31-2021 Subsequent hospital visit by physician Bone [facility] Work Phone: Radiology Comment on above: Vitamin D deficiency [E55.9] Procedures Date Procedure Procedure Detail Performing Clinician Start: 03-20-2025 Plain X-ray of finger D aidan Sheldon MD Work Phone: Start: 01-04-2025 PULSE OXIMETRY, CONTINUOUS Julius C Roneley DO Work Phone: Start: 01-04-2025 Radiological examina tion surgical specimen Suzie Briggs DO Work Phone: Start: 12-26-2024 MG Breast - unilater al Single view for clip placement Suzie Briggs DO Work Phone: Start: 12-26-2024 Perq device placemen t breast loc 1st les w/gdnce Suzie Briggs DO Work Phone: Start: 11-16-2024 IMAGING PROCEDURE NO T PERFORMED Franco Waylon Sustin COMMERCIAL COORDINATOR-CAMP TENDER Work Phone: Start: 11-16-2024 MG Breast - unilater al Single view for clip placement Franco F Sustin COMMERCIAL COORDINATOR-CAMP TENDER Work Phone: Start: 11-16-2024 Bx breast w/device 1 st lesion stereotactic guid Franco Connors Sustin COMMERCIAL COORDINATOR-CAMP TENDER Work Phone: Start: 11-14-2024 End: 11-14-2024 Diagnostic mammography computer-aided detcj uni Franco Loya COMMERCIAL COORDINATOR-CAMP TENDER Work Phone: Start: 07-25-2024 Lipid 1996 panel - S colleen or Plasma Suzie Foley COMMERCIAL COORDINATOR.CAMP TENDER Work Phone: Start: 06-16-2022 Mammography [facility] 3 Start: 12-31-2021 Dxa bone density jamison dy 1/> sites axial skel Jessica Persaud MD Work Phone: Start: 12-31-2021 Lipid 1996 panel - S colleen or Plasma Suzie Tannhof COMMERCIAL COORDINATOR.CAMP TENDER Work Phone: Start: 08-02-2021 Adult depression scr eening assessment [facility] Work Phone: Start: 12-18-2019 Colonoscopy [facility] Work Phone: Start: 03-23-2012 Mammography [facility] Work Phone: Plan of Treatment Date Care Activity Detail Author Start: 2029 RSV High Risk: (Elde rly (60+) or Population) (1 - 1-dose 75+ series) RSV High Risk: (Elderly (60+) or Population) (1 - 1-dose 75+ series) [facility] Start: 2029 RSV Vaccine (1 - 1-d ose 75+ series) RSV Vaccine (1 - 1-dose 75+ series) [facility] Start: 12-17-2029 Colonoscopy COLONOSCOPY [facility] Start: 12-17-2029 COLORECTAL CANCER SCREENING COLORECTAL CANCER SCREENING [facility] Start: 12-17-2029 Screening for malign ant neoplasm of colon [facility] Start: 07-25-2029 Lipid panel Lipid Screening [facility] Start: 12-27-2027 Diabetes Screening Diabetes Screenin g [facility] Start: 07-25-2027 Diabetes Screening Diabetes Screenin g [facility] Start: 12-31-2026 Lipid 1996 panel - Serum or Plasma Lipid Screening [facility] Start: 12-31-2026 Lipid panel Lipid Screening [facility] Start: 12-31-2026 LIPID SCREEN LIPID SCREEN [facility] Start: 11-14-2025 Screening for malign ant neoplasm of breast [facility] Start: 07-23-2025 End: 07-23-2025 Patient encounter procedure 07/23/2025 1:00 PM EDT Office Visit [facility] [address] [place] [address] Suzie Briggs, [id number] [facility], [address] [place] [phone] [facility] Start: 07-20-2025 Hepatitis C screening Hepatitis C [facility] Comment on above: Postponed from 12/22 (Declined at this time) Start: 06-11-2025 Influenza vaccination Influenz a Vaccine (Season Ended) [facility] Start: 03-20-2025 [facility] [place] Start: 03-04-2025 COVID-19 Vaccine ( season) COVID-19 Vaccine ( season) [facility] Start: 02-06-2025 End: 02-06-2025 Patient encounter procedure 02/06/2025 1:00 PM EDT Appointment [facility] [address] [place] [phone] Simin Longo MD [address] [facility], [address] [place] [address] [facility] Start: 01-25-2025 End: 01-25-2025 Patient encounter procedure 01/25/2025 1:00 PM EDT Office Visit [facility] [address] [place] [address] Suzie Briggs, [phone] [facility], [address] [place] [address] [phone] [facility] Start: 01-04-2025 End: 01-04-2025 Patient encounter procedure 01/04/2025 9:30 AM EDT Appointment [address] [phone] [facility] Start: 01-04-2025 End: 01-04-2025 Admission to same day surgery center 01/04/2025 9:15 AM EDT - 01/04/2025 11:00 AM EDT Surgery [facility] [place] [address] [place] [phone] Suzie Briggs, [address] [place] [phone] LEFT MAG SEED LOCALIZED PARTIAL MASTECTOMY [01729 (CPT )] [facility] [place] Comment on above: LEFT MAG SEED LOCALI ZED PARTIAL MASTECTOMY [45271 (CPT )] Start: 01-04-2025 End: 01-04-2025 Mastectomy partial MASTECTOMY, PARTIAL Ductal carcinoma in situ of left breast 01/04/2025 9:[address] [place] Start: 01-04-2025 Subsequent hospital visit by physician 01/04/2025 9:15 AM EDT Hospital Encounter [facility] [place] [address] [place] [phone] Suzie Briggs, [address] [place] [phone] [facility] [place] Start: 01-04-2025 End: 01-04-2025 Admission to [facility] 01/04/2025 7:30 AM EDT - 01/04/2025 9:15 AM EDT Surgery [facility] [place] [address] [place] [id number] Suzie Briggs, [address] [place] [id number] LEFT MAG SEED LOCALIZED PARTIAL MASTECTOMY [49284 (CPT )] [facility] [place] Comment on above: LEFT MAG SEED LOCALI ZED PARTIAL MASTECTOMY [82676 (CPT )] Start: 01-04-2025 End: 01-04-2025 Mastectomy partial MASTECTOMY, PARTIAL Ductal carcinoma in situ of left breast 01/04/2025 7:30 AM EDT [facility] Start: 01-04-2025 Subsequent hospital visit by physician 01/04/2025 7:30 AM EDT Hospital [place]counter [facility] [place] [address] [place] [address] Suzie Briggs, [address] [facility], [address] [place] [phone] [facility] [place] Start: 12-31-2024 DIABETES SCREEN DIABETES SCREEN [facility] Start: 12-31-2024 Diabetes Screening Diabetes Screenin g [facility] Start: 12-04-2024 DTaP/Tdap/Td Vaccine s (2 - Td or Tdap) DTaP/Tdap/Td Vaccines (2 - Td or Tdap) [facility] Start: 12-04-2024 Urine microalbumin profile [facility] Start: 11-30-2024 End: 11-30-2025 Basic metabolic 2000 panel - Serum or Plasma Basic metabolic panel Lab Routine Ductal carcinoma in situ of left breast Expected: 11/30/2024 (Approximate), Expires: 11/30/2025 [facility] Work Phone: Comment on above: Expected: 11/30/2024 (Approximate), Expires: 11/30/2025 Start: 11-30-2024 End: 11-30-2025 CBC panel - Blood by Automated count CBC Lab Routine Ductal carcinoma in situ of left breast Expected: 11/30/2024 (Approximate), Expires: 11/30/2025 [facility] Work Phone: Comment on above: Expected: 11/30/2024 (Approximate), Expires: 11/30/2025 Start: 11-30-2024 End: 11-30-2025 ECG 12 lead (Ancillary Performed) ECG 12 lead (Ancillary Performed) ECG Routine Ductal carcinoma in situ of left breast Expected: 11/30/2024 (Approximate), Expires: 11/30/2025 [facility] Work Phone: Comment on above: Expected: 11/30/2024 (Approximate), Expires: 11/30/2025 Start: 11-30-2024 End: 11-30-2025 Request for Pre-Admission Testing Visit Request for Pre-Admission Testing Visit Procedures Routine Ductal carcinoma in situ of left breast Expected: 11/30/2024 (Approximate), Expires: 11/30/2025 [facility] Service Area Work Phone: Comment on above: Expected: 11/30/2024 (Approximate), Expires: 11/30/2025 Start: 11-16-2024 End: 11-16-2024 Patient encounter procedure [facility] Start: 10-11-2024 Advance Directive Discussion Advance Directive Discussion [facility] Start: 07-20-2024 End: 10-19-2024 25-hydroxyvitamin D3 [Mass/volume] in Serum or Plasma VITAMIN D 25 HYDROXY Lab Routine Vitamin D deficiency Expected: 07/20/2024, Expires: 10/19/2024 [facility] Comment on above: Expected: 07/20/2024 , Expires: 10/19/2024 Start: 07-20-2024 End: 10-19-2024 CBC W Auto Differential panel - Blood COMPLETE BLOOD COUNT AND DIFFERENTIAL Lab Routine Preoperative clearance Expected: 07/20/2024, Expires: 10/19/2024 [facility] Work Phone: Comment on above: Expected: 07/20/2024 , Expires: 10/19/2024 Start: 07-20-2024 End: 10-19-2024 Comprehensive metabolic 2000 panel - Serum or Plasma COMPREHENSIVE METABOLIC PANEL Lab Routine Preoperative clearance Expected: 07/20/2024, Expires: 10/19/2024 [facility] Comment on above: Expected: 07/20/2024 , Expires: 10/19/2024 Start: 07-20-2024 End: 10-19-2024 Lipid 1996 panel - Serum or Plasma LIPID PANEL BASIC Lab Routine Elevated LDL cholesterol level Expected: 07/20/2024, Expires: 10/19/2024 [facility] Comment on above: Expected: 07/20/2024 , Expires: 10/19/2024 Start: 07-13-2024 End: 07-13-2024 Patient encounter procedure 07/13/2024 1:20 PM EDT Office Visit [facility] [address] [place] [address] Jessica Persaud MD [address] [place] [address] Medicare wellness [facility] Comment on above: Medicare wellness Start: 06-11-2024 Covid-19 Vaccine () Covid-19 Vaccine () [facility] Start: 06-11-2024 Covid-19 Vaccine () Covid-19 Vaccine () [facility] Start: 06-11-2024 Influenza vaccination Influenza Vacc ine (#1) [facility] Start: 10-11-2023 Advance Directive Discussion Advance Directive Discussion [facility] Start: 08-16-2023 End: 11-15-2023 25-hydroxyvitamin D3 [Mass/volume] in Serum or Plasma VITAMIN D 25 HYDROXY Lab Routine Vitamin D deficiency Expected: 08/16/2023, Expires: 11/15/2023 [facility] Work Phone: Comment on above: Expected: 08/16/2023 , Expires: 11/15/2023 Start: 08-16-2023 End: 11-15-2023 Borrelia burgdorferi IgG and IgM panel - Serum LYME AB LATE >30 DAYS SYMPTOMS Lab Routine Tick bite of back, initial encounter Expected: 08/16/2023, Expires: 11/15/2023 [facility] Work Phone: Comment on above: Expected: 08/16/2023 , Expires: 11/15/2023 Start: 08-16-2023 End: 11-15-2023 CBC W Auto Differential panel - Blood CBC + DIFF Lab Routine Tick bite of back, initial encounter Expected: 08/16/2023, Expires: 11/15/2023 [facility] Work Phone: Comment on above: Expected: 08/16/2023 , Expires: 11/15/2023 Start: 08-16-2023 End: 11-15-2023 Comprehensive metabolic 2000 panel - Serum or Plasma COMP METABOLIC PANEL Lab Routine Tick bite of back, initial encounter Expected: 08/16/2023, Expires: 11/15/2023 [facility] Work Phone: Comment on above: Expected: 08/16/2023 , Expires: 11/15/2023 Start: 08-16-2023 End: 11-15-2023 Lipid 1996 panel - Serum or Plasma LIPID PANEL BASIC Lab Routine Hyperlipidemia, unspecified hyperlipidemia type Expected: 08/16/2023, Expires: 11/15/2023 [facility] Work Phone: Comment on above: Expected: 08/16/2023 , Expires: 11/15/2023 Start: 06-16-2023 Screening for malign ant neoplasm of breast [facility] Start: 10-11-2022 Advance Directive Discussion Advance Directive Discussion [facility] Start: 10-11-2022 Depression Assessment Depression Ass essment [facility] Start: 08-02-2022 Adult depression screening assessment DEPRESSION SCREENING [facility] Start: 06-11-2022 Influenza vaccination INFLUENZA (#1) [facility] Start: 10-11-2021 ADVANCE DIRECTIVE DISCUSSION ADVANCE DIRECTIVE DISCUSSION [facility] Start: 10-11-2021 DEPRESSION ASSESSMENT DEPRESSION ASS ESSMENT [facility] Start: 09-27-2021 COVID-19 VACCINE (4 - Booster for Moderna series) COVID-19 VACCINE (4 - Booster for Moderna series) [facility] Start: 12-23-2019 Pneumococcal Vaccine : 65+ (1 - PCV) Pneumococcal Vaccine: 65+ (1 - PCV) [facility] Start: 12-23-2019 Pneumococcal Vaccine : 65+ (1 of 1 - PCV) Pneumococcal Vaccine: 65+ (1 of 1 - PCV) [facility] Start: 12-23-2019 PNEUMOCOCCAL: 65+ (1 - PCV) PNEUMOCOCCAL: 65+ (1 - PCV) [facility] Start: 12-23-2019 PNEUMOVAX AGE 65 AND OVER WITH 5YR LOOKBACK (#1) PNEUMOVAX AGE 65 AND OVER WITH 5YR LOOKBACK (#1) [facility] Start: 2014 RSV Vaccine (1 - 1-d ose 60+ series) RSV Vaccine (1 - 1-dose 60+ series) [facility] Start: 03-23-2013 Mammography [facility] Start: 03-23-2013 Screening for malign ant neoplasm of breast Mammogram Screening [facility] Start: 2004 Pneumococcal vaccination Pneumococcal Vaccine (1 of 1 - PCV) [facility] Start: 2004 Pneumococcal Vaccine : 50+ (1 of 1 - PCV) Pneumococcal Vaccine: 50+ (1 of 1 - PCV) [facility] Start: 2004 SHINGRIX VACCINE (1 of 2) SHINGRIX VACCINE (1 of 2) [facility] Start: 2004 Zoster Vaccines (1 o f 2) Zoster Vaccines (1 of 2) [facility] Start: 12-23-1999 COLOGUARD (FIT-DNA) COLOGUARD (FIT-D NA) [facility] Start: 12-23-[address] COLONOGRAPHY [facility] Start: 12-23-1999 FECAL OCCULT BLOOD FECAL OCCULT BLOO D [facility] Start: 12-23-1999 Screening for malign ant neoplasm of colon [facility] Start: 12-23-1999 SIGMOIDOSCOPY SIGMOIDOSCOPY [facility] Start: 1972 Anxiety Screening Anxiety Screening [facility] Start: 1972 Depression Screening Depression Scre ening [facility] Start: 1972 Diabetes mellitus screening Diabetes Screening [facility] Start: 1972 HEPATITIS C SCREENING HEPATITIS C [facility] Start: 1972 Hepatitis C screening Hepatitis C [facility] Start: 1954 Annual wellness visit Welcome to Medicare Visit [facility] Start: 1955 Lipid panel Lipid Panel [facility] Start: 1955 Screening for malign ant neoplasm of colon [facility] End: 08-19-2025 DBT Breast - bilateral screening CAIT SCREENING W AVTAR Radiology Routine Malignant neoplasm of right female breast, unspecified estrogen receptor status, unspecified site of breast (HCC) 1 Occurrences starting 07/20/2024 until 08/19/2025 [facility] Comment on above: 1 Occurrences starti ng 07/20/2024 until 08/19/2025 End: 11-08-2024 DBT Breast - left screening [facility] Service Area Comment on above: Once for 1 Occurrenc es starting 11/08/2024 until 11/08/2024 Patient Education ED Hypertensio n, To Be Confirmed ED Laceration, Hand: All Closures [facility] Work Phone: Patient referral [facility] Work Phone: Surgical pathology study [facility] Service Area Work Phone: Comment on above: Release Upon Orderin g for 1 Occurrences starting 11/16/2024, 1 completed Surgical pathology study [facility] Service Area Work Phone: Comment on above: Release Upon Orderin g for 1 Occurrences starting 01/04/2025, 1 completed Immunizations Immunization Date Immunization Notes Care Provider Torey leal 07-29-2023 influenza virus vaccine, unspecified formulation Mana Gilbert MA [facility] 01-09-2021 COVID-19 vaccine, fu ll dose (MODERNA) [facility] Work Phone: [facility] 12-12-2020 COVID-19 vaccine, fu ll dose (MODERNA) [facility] Work Phone: [facility] 12-04-2014 tetanus toxoid, redu gregory diphtheria toxoid, and acellular pertussis vaccine, adsorbed [facility] Work Phone: [facility] Work Phone: Payers Date Payer Category Payer Dual Eligibility Medicare/Medicaid Organization [id number] 2024 Managed Care (Private) [facility] [id number] 2023 Self-pay 2021 Medicare [facility] AARP MEDICAR E [facility] AAR MEDICARE HMO [id number] 2021-Present [phone] [address] [address] [place] [address] O [id number] 2021 Medicare [employer] AARP MEDICAR E [employer] AARP MEDICARE HMO [id number] 2021-Present [phone] [address] [address] [place] [address] HMO [id number] 2021 Medicare (Managed Care) 1.2. [id number] 2021 Private Health Insurance [id number] 1954 Unknown [id number] 2.840.1.705036.3.579. 2.1242 1954 Unknown [id number] 2.840.1.304006.3.579. 2.1242 1954 Unknown [id number] .0.1.582851.3.579. 2.1242 1954 Unknown [id number] 2.16.840.1.523965.3.579. 2.1242 1954 Unknown [id number] 2.16.840.1.881461.3.579. 2.1242 1954 Unknown [id number] 2.16.840.1.096683.3.579. 2.1244 1954 Unknown [id number] 2.16.840.1.233745.3.579. 2.1244 1954 Unknown [id number] 2.16.840.1.515082.3.579. 2.1245 1954 Unknown [id number] 2.16.840.1.966529.3.579. 2.124 1954 Unknown [id number] 2.16.840.1.073734.3.579. 2.124 1954 Unknown [id number] 2.16.840.1.229150.3.579. 2.124 1954 Unknown [id number] 2.16.840.1.342977.3.579. 2.1245 1954 Unknown [id number] 2.16.840.1.219853.3.579. 2.1244 1954 Unknown [id number] 2.16.840.1.629516.3.579. 2.1244 1954 Unknown [id number] 2.16.840.1.361608.3.579. 2.124 1954 Unknown [id number] 2.16.840.1.897887.3.579. 2.124 1954 Unknown [id number] 2.16.840.1.495421.3.579. 2.1245 Private Health Insurance [facility] [id number] Unknown [id number] 2.16.840.1.937864.3.579. 2.462 Unknown [facility] [id number] Social History Date Type Detail Facility Start: 05-04-2012 End: 07-20-2024 Tobacco smoking status NHIS Ex-smoker [facility] Work Phone: Start: 02-13-1980 End: 02-12-1991 History of tobacco use Current smoker [facility] Start: 08-27-2021 End: 02-25-2025 Alcohol intake Current drinker of alcohol (finding) [facility] Start: 08-27-2021 End: 07-18-2024 Alcohol intake [facility] Start: 05-12-2007 History SDOH Alcohol Comment SOCIALLY [facility] Start: 1955 Sex Assigned At Not on file [facility] Start: 02-13-1980 End: 02-12-1991 History of tobacco use Cigarette Smoker [facility] Start: 05-04-2012 End: 07-20-2024 Tobacco use and exposure Smokeless tobacco non-user [facility] Start: 08-29-2016 Tobacco smoking stat us NHIS Unknown if ever smoked [facility] Start: 1955 Sex Assigned At Female W [facility] Start: 08-17-2023 End: 07-18-2024 Tobacco use panel [facility] Adult Depression Screening Assessment 0 [facility] Has the Contractors AID, or [employer] threatened to shut off services in your home in past 12Mo No [facility] Do you belong to any clubs or organizations such as yazidism groups, unions, fraternal or athletic groups, or school groups? Yes [facility] Are you now , , , , never or living with a partner? [facility] How often to you hav e a drink containing alcohol? 2-3 time sa week [facility] How many standard dr inks containing alcohol do you have on a typical day? 1 or 2 [facility] How often do you hav e 6 or more drinks on 1 occasion? Never [facility] Do you feel stress - tense, restless, nervous, or anxious, or unable to sleep at night because your mind is troubled all the time - these days [OSQ] Only a little [facility] (I/We) worried jesika montero (my/our) food would run out before (I/we) got money to buy more. Never true [facility] Start: 10-29-2024 End: 02-06-2025 Exposure to SARS-CoV-2 (event) Not sure [facility] Start: 11-30-2024 End: 03-20-2025 Tobacco smoking status NHIS Never smoked tobacco [facility] Start: 12-26-2024 Alcohol Comment few times per week [facility] Work Phone: Functional Status Date Assessment Result Facility 12-04-2014 Are you deaf, or do you have serious difficulty hearing No 12/04/2014 8:47 AM Emperatriz Rock MA [facility] 12-04-2014 Are you blind, or do you have serious difficulty seeing, even when wearing glasses No 12/04/2014 8:47 AM Emperatriz Rock MA [facility] 12-04-2014 Do you have serious difficulty walking or climbing stairs No 12/04/2014 8:47 AM Emperatriz Rock MA [facility] 12-04-2014 Do you have difficul ty dressing or bathing No 12/04/2014 8:47 AM Emperatriz Rock MA [facility] 12-04-2014 Because of a physica l, mental, or emotional condition, do you have difficulty doing errands alone such as visiting a physician's office or shopping No 12/04/2014 8:47 AM Emperatriz Rock MA [facility] Mental Status Date Assessment Result Facility 12-04-2014 Because of a physica l, mental, or emotional condition, do you have serious difficulty concentrating, remembering, or making decisions No 12/04/2014 8:47 AM Emperatriz Rock MA [facility] Clinical Notes 12-31-2021 to 03-20-2025 Note Date & Type Note Facility 03-20-2025 Discharge summary [facility] 03-20-2025 Radiology Diagnostic study note [facility] Imaging Services [address] [place], [place] [address] Finger(s) Min 2 Views MR#: [id number] Acct: [id number] Name: MURIEL CABRERA Rep #: [id number] : 1955 F 69 From: Mc Majano MD PCP: NOT,DEFINED Status: PRE ER Study:Finger(s) Min 2 Views Date of Exam: 03/20/25 Exam# [id number] Ordering Dr: Dimple Sheldon MD PROCEDURE: FINGER(S) MIN 2 VIEWS 03/20/2025 REASON FOR EXAM: INJURY/PAIN TECHNIQUE: 3 view(s) of the index finger COMPARISON: None FINDINGS: Bones: No fracture. Joints: Normal alignment. Mild degenerative changes. Soft tissues: Soft tissue laceration. Other: RAD/Finger(s) Min 2 Views IMPRESSION: Soft tissue laceration. No fracture. Reading Location: [place] [address] CC: DEFINED NOT; Dr. Julián Sheldon MD ~ Plating Technician: Signed [facility] 03-20-2025 Discharge summary Note Date/Time March 20, 2025 3:17pm [facility] Medical Records Department [address] [place] [address] Emergency Department Summary 03/20/25 MR#: [id number] Acct: [id number] Name: MURIEL CABRERA Rep #:[id number] : [id number] 69 From: Julián Sheldon MD PCP: NOT,DEFINED Status:PRE ER Location: ED HPI History of Present Illness Chief Complaint: Trauma Detail of Chief Complaint: Injury left index finger while using hedger Informant: patient Onset/Context/Timing Onset: Hours Mechanism/Context: Blunt Injury Location of pain/injuries: Left hand (Index finger distal to the DIP joint) Current Severity: Mild Maximum Severity: Moderate Worsened by: Original injury Relieved by: Not using her hand Associated Symptoms Associated Symptoms: Negative for Parasthesias, Weakness or Loss of function Narrative Narrative: Patient is a 69-year-old qaonm-[id number] female. She has no significant past medical history. She states her tetanus is up-to-date. She was using a hedge tremor. She sustained injury to the tip of her left index finger. She states she is able to bend her finger. She has no medical allergies. Prior similar symptoms: No Recent Illness/Hospitalization: No PFSH PFSH Medical History no medical history no medical history Home Medications ?Medication ?Instructions ?Recorded ?Last Taken ?Type clobetasol 0.05 % topical ointment 1 applic topical BI D PRN FLARE 03/20/25 Unknown History valacyclovir 500 mg tablet 500 mg PO BID 03/20/25 Unkn own History Allergy/AdvReac Type Severity Reaction Status Date / Time No Known Allergies Allergy Verified 03/20/25 13:23 Social History Smoking Status: Never smoker ROS ROS ED Integumentary Reports other Details: Laceration left index finger distal DIP joint ; Denies rash Neurologic Neurologic: Denies paresthesias Hematologic/Lymphatic Hematologic/Lymphatic: Denies easy bleeding or easy bruising EXAM Physical Exam Const Vital Signs: 03/20/25 13:23 Temperature 96.1 F L Temperature Source Temporal Pulse Rate 109 H Respiratory Rate 18 Blood Pressure 137/92 H Blood Pressure Mean 107 Pulse Ox 98 Oxygen Delivery Method Room Air Positive well nourished and well developed Constitutional Narrative: Patient is very anxious. Patient requested something for pain. I informed her I will anesthetize her finger and she will have no pain within 10 seconds. General Appearance ED: well developed HEENT HEENT Narrative: Head is normocephalic. Ears are normal. atraumatic Eyes PERRL and EOMs intact bilaterally General Eye ED: Yes other Other Details: There is no scleral icterus. Resp normal respiratory effort Cardio regular rhythm and S1 normal heart sound Extremity full ROM; Negative for normal to inspection Extremity Narrative: The flexor digitorum superficialis and flexor digitorum profundus are both intact. There is no subungual hematoma. Patient has abnormal to point discrimination distal to the wound. Neuro oriented x3, CN's II-XII intact bilaterally, no focal motor deficits and No no sensory deficits noted [place] Coma Scale: document GCS findings Spontaneous Obeys Commands Oriented 15 Sensorium / Orientation: alert Psych thought process normal; Negative for mental status grossly normal Mood & Affect: anxious Skin Skin Narrative: Laceration distal left index finger PROC Procedures Other Procedures Procedure(s): Laceration left index finger total length 1.9 cm: Patient was anesthetized by digital block. 1% lidocaine without epinephrine wasused. A total of 3 cc was infused. Prior to placing the for stitch patient states she has burning sensation the tip of her index finger ulnar side. Additionally lidocaine was instilled. Wound was cleansed with serge cleanse irrigated with saline. Using 5-0 Ethilon simple interrupted sutures placed. Total number of stitches 6. MDM MDM MDM Narrative Medical decision making narrative: X-ray was obtained to evaluate for osseous injury. Patient has abnormal 2 points rumination. The wound is quite distal and would not be something that would be treated with microsurgery. Radiography Chest X-Ray - ED: Read by ED Physician (Three-view x-ray of the index finger reveals no evidence of fracture or foreign body. This is a fairly reviewed interpreted by me at 1421) Diagnostic Testing: Clinical Impression(s) from Imaging Studies Finger X-Ray 03/20/25 14:15 IMPRESSION: Soft tissue laceration. No fracture. Reading Location: [place] [address] Discharge Plan Triage Chief Complaint: Trauma ED Provider: Julián Sheldon Dx/Rx/DC Orders Clinical Impression: Laceration of left index finger with complication, Sinus tachycardia, Elevated blood-pressure reading without diagnosis of hypertension Instructions: ED Hypertension, To Be Confirmed, ED Laceration, Hand: All Closures Prescriptions: No Action valacyclovir 500 mg tablet 500 mg PO BID Patient Comments: PT STATES ONLY TAKES ONCE OR TWICE A YEAR FOR FLARE clobetasol 0.05 % ointment 1 applic topical BID PRN (Reason: FLARE ) Primary Care Provider: NOT,DEFINED Referrals: NOT,DEFINED [Primary Care Provider] - Activity Restrictions/Additional Instructions: 1. Contact your provider for stitches to be removed in 10 days and have your blood pressure rechecked. 2. Keep the wound clean and dry for the next 48 to 72 hours. 3. Return if there is any evidence of infection or you are experiencing severe pain. Print Language: Kiswahili Disposition Disposition: Home, Self Care What to do if you have Problems For any increased pain, shortness of breath, bleeding, nausea or vomiting, chestpain, or any unexpected problems, contact your Primary Care Provider. Call [facility] ([phone]) or report to the closest Emergency Room. Call 911 if necessary. 03/20/25 1517 <Electronically signed by Julián Sheldon MD> Cosigner Signature (if applicable): CC: DEFINED NOT ~ Signed [facility] Work Phone: [phone] 878-345305-18-2025 NoteHNO ID: [id number] Author: LARISA SWANSON APRN.CAMP TENDER Service: ? Author Type: Nurse Practitioner Type: Progress Notes Filed: 02/25/2025 14:55 Note Text: [facility] Subjective Muriel Corona is a 69 year old female. Patient presents with: Trauma: Possible tick bite on left ankle x 2 days, back pain x this AM that has since resolved Presents for insect bite. Reports area looked more bullseye shaped yesterday. Unsure if she was bit by a tick or another insect. Reports she woke up with sharp back pain in the middle of the night and took tramadol. Pain has since resolved. The history is provided by the patient. Trauma This is a new problem. The current episode started in the past 7 days. The problem occurs constantly. The problem has been unchanged. Associated symptoms include arthralgias and a rash. Pertinent negatives include no chills, fatigue or fever. Nothing aggravates the symptoms. She has tried nothing for the symptoms. The treatment provided no relief. Review of Systems Constitutional: Negative for chills, fatigue and fever. Musculoskeletal: Positive for arthralgias. Skin: Positive for rash. Objective BP 116/76 (BP Site: Left Arm, BP Position: Sitting) Pulse 90 Temp 36.7 ?C (98.1 ?F) Resp 18 Wt 69 kg (152 lb 1.9 oz) LMP 06/11/2006 SpO2 96% BMI 27.82 kg/m? Physical Exam Constitutional: Appearance: Normal appearance. Skin: General: Skin is warm and dry. Findings: Erythema (left inner ankle, round raised with firm center. No central clearing noted. warm to touch.) present. Neurological: Mental Status: She is alert. {ASSESSMENT/PLAN: 1. Bug bite, initial encounter - ICD9: 919.4, ICD10: W57.XXXA (primary diagnosis) - DOXYCYCLINE HYCLATE 100 MG CAPSULE 2. Cellulitis of skin - ICD9: 682.9, ICD10: L03.90 - Begin treatment with Doxycycline - No lymphangetic streaking, this was defined for patient to watch for and to seek medical care immediately if appears - Follow up for recheck in prn - DOXYCYCLINE HYCLATE 100 MG CAPSULE Will cover with doxycyline for cellulitis and lyme due to back pain. Larisa Swanson APRN.CAMP TENDER [facility]05-18-2025 History of Present illness Narrative* Larisa Swanson APRN.JOVAN - 02/25/2025 2:51 PM EDT [facility] Subjective Muriel Corona is a 69 year old female. Patient presents with: Trauma: Possible tick bite on left ankle x 2 days, back pain x this AM that has since resolved Presents for insect bite. Reports area looked more bullseye shaped yesterday. Unsure if she was bitby a tick or another insect. Reports she woke up with sharp back pain in the middle of the night and took tramadol. Pain has since resolved. The history is provided by the patient. Trauma This is a new problem. The current episode started in the past 7 days. The problem occurs constantly. The problem has been unchanged. Associated symptoms include arthralgias and a rash. Pertinent negatives include no chills, fatigue or fever. Nothing aggravates the symptoms. She has tried nothing for the symptoms. The treatment provided no relief. Review of Systems Constitutional: Negative for chills, fatigue and fever. Musculoskeletal: Positive for arthralgias. Skin: Positive for rash. Objective BP 116/76 (BP Site: Left Arm, BP Position: Sitting) Pulse 90 Temp 36.7 C (98.1 F) Resp 18 Wt 69 kg (152 lb 1.9 oz) LMP 06/11/2006 SpO2 96% BMI 27.82 kg/m Physical Exam Constitutional: Appearance: Normal appearance. Skin: General: Skin is warm and dry. Findings: Erythema (left inner ankle, round raised with firm center. No central clearing noted. warm to touch.) present. Neurological: Mental Status: She is alert. {ASSESSMENT/PLAN: 1. Bug bite, initial encounter - ICD9: 919.4, ICD10: W57.XXXA (primary diagnosis) - DOXYCYCLINE HYCLATE 100 MG CAPSULE 2. Cellulitis of skin - ICD9: 682.9, ICD10: L03.90 - Begin treatment with Doxycycline - No lymphangetic streaking, this was defined for patient to watch for and to seek medical care immediately if appears - Follow up for recheck in prn - DOXYCYCLINE HYCLATE 100 MG CAPSULE Will cover with doxycyline for cellulitis and lyme due to back pain. Larisa Swanson APRN.JOVAN MDM Procedures [facility] History of Present illness Narrative* Simin Longo MD - 02/06/2025 1:00 PM EDT Images from the original note were not included. Radiation Oncology Outpatient Consult Patient Name: Muriel Corona : 1955 Referring Provider: Suzie Briggs DO Primary Care Provider: Brianna Manning MD Care Team: Patient Care Team: Brianna Manning MD as PCP - General Date of Service: 02/06/2025 SUBJECTIVE History of Present Illness: Muriel Saldivar is a 69 y.o. female who was referred by Suzie Briggs DO, for a consultation to the [facility] Department of Radiation Oncology. Sheis presenting for evaluation and management of her newly diagnosed left breast cancer. Right breast cancer diagnosed in 2006 status post neoadjuvant TCH x 6 followed by a right partial mastectomy with axillary lymph node dissection followed by Abraxane/AC followed by completion mastectomy and adjuvant radiation (50 Gy/25 fxs completed 05/16/2008). She took endocrine therapy following her radiation. Mammogram performed 11/08/2024 revealed new calcifications in the superior left breast. Diagnostic mammogram performed 11/14/2024 revealed grouped pleomorphic calcifications in the superiorleft breast. Left breast biopsy performed 11/16/2024 revealed a 0.5 cm ductal carcinoma in situ, grade 2. Estrogenreceptors stained positive at 91 to 100%. Left partial mastectomy performed 01/04/2025 revealed biopsy changes and no residual tumor. I was asked to see Ms. Gian Corona by Dr. Suzie Briggs for a discussion regarding the role of radiation in the management of this ductal carcinoma in situ removed entirely at core biopsy. Prior Radiotherapy: Right supraclavicular fossa, axilla, chest wall: 50 Gy/25 fxs completed 05/16/2008. Past Medical History: Medical History[1] Past Surgical History: Surgical History[2] Family History: Cancer-related family history includes Skin cancer in her mother. Social History: Social History[3] Gynecologic History: Menarche age 13-14. G3, P2. She delivered her first child at the age of 30. She went through menopause following her cancer diagnosis. She took oral contraceptive pills for 15 years. She denies any history of hormone replacement therapy. Allergies: Allergies[4] Medications: Current Medications[5] Review of Systems: Review of Systems - Oncology Performance Status: The Karnofsky performance scale today is 100, Fully active, able to carry on all pre-disease performed without restriction (ECOG equivalent 0). OBJECTIVE BP 130/79 (BP Location: Left arm, Patient Position: Sitting, BP Cuff Size: Adult) Pulse 79 Temp36.2 C (97.2 F) (Temporal) Resp 16 Ht 1.547 m (5' 0.91) Wt 70.2 kg (154 lb 11.2 oz) SpO2 97% BMI 29.32 kg/m Physical Exam Constitutional: Appearance: Normal appearance. HENT: Head: Normocephalic and atraumatic. Eyes: Conjunctiva/sclera: Conjunctivae normal. Cardiovascular: Heart sounds: Normal heart sounds. Pulmonary: Breath sounds: Normal breath sounds. Chest: Breasts: Right: No swelling, bleeding, mass, skin change or tenderness. Left: No swelling, bleeding, inverted nipple, mass, nipple discharge, skin change or tenderness. Abdominal: Palpations: Abdomen is soft. Musculoskeletal: Right lower leg: No edema. Left lower leg: No edema. Lymphadenopathy: Upper Body: Right upper body: No supraclavicular or axillary adenopathy. Left upper body: No supraclavicular or axillary adenopathy. Neurological: Mental Status: She is alert. Laboratory Review: There are no laboratory contraindications to radiation therapy. Pathology Review: The pertinent pathology results were reviewed and discussed with the patient. Seehistory for details. Imaging: The pertinent imaging results were reviewed and discussed with the patient. See history for details. ASSESSMENT: Muriel Corona is a 69 y.o. female with Ductal carcinoma in situ of left breast, Clinical: Stage 0 (cTis (DCIS), cN0, cM0, ER+, AK: Not Assessed, HER2: Not Assessed) Ductal carcinoma in situ of left breast, Pathologic: Stage 0 (pTis (DCIS), cN0, cM0, ER+, AK: Not Assessed, HER2: Not Assessed). She is status post left partial mastectomy. The DCIS was removed entirely at the time of core biopsy. PLAN: I had a long conversation with Ms. Gian Corona detailing the role of radiation in the management of this newly diagnosed ductal carcinoma in situ. We discussed that in general for small, low-grade ductal carcinoma in situ with widely negative margins the local recurrence risk is approximately 15% at 15 years, half of which is DCIS and the other half of which is invasive. We did discuss that given this was removed entirely at the time of core biopsy the recurrence risk may be even lower.We discussed that radiation would reduce this risk by half to two thirds with no survival advantage. If she decides to proceed with radiation she is leaning towards partial breast irradiation. The side effects of radiation discussed included but were not limited to skin irritation with possible breakdown, fatigue, possible poor cosmetic outcome, rib fragility, pulmonary toxicity, cardiac toxicityand the possibility of a secondary malignancy induced by the radiation. She voices understanding and is deciding whether or not she wants to proceed with radiation. She will contact me if she does want to receive radiation. NCCN Guidelines were applicable to guide this patients treatment plan. Simin Longo MD [1] Past Medical History: Diagnosis Date BRCA1 negative 01/2007 Breast cancer 05/13/2007 Hx antineoplastic chemo 2006 Personal history of irradiation 2006 [2] Past Surgical History: Procedure Laterality Date BREAST BIOPSY 04/2007 BREAST LUMPECTOMY 2007 BREAST RECONSTRUCTION SECTION, LOW TRANSVERSE MASTECTOMY Right 10/25/2007 OTHER SURGICAL HISTORY Eyelid surgery [3] Social History Tobacco Use Smoking status: Former Current packs/day: 0.00 Types: Cigarettes Quit date: 1989 Years since quittin.3 Smokeless tobacco: Never Vaping Use Vaping status: Never Used Substance Use Topics Alcohol use: Yes Comment: few times per week Drug use: Not Currently [4] No Known Allergies [5] Current Outpatient Medications: clobetasol (Temovate) 0.05 % ointment, Apply 1 Application topically 2 times a day., Disp: , Rfl: erythromycin (Romycin) 5 mg/gram (0.5 %) ophthalmic ointment, Apply 0.5 Applications to both eyes 1time., Disp: , Rfl: meloxicam (Mobic) 15 mg tablet, Take 1 tablet (15 mg) by mouth once daily. Take with food., Disp: ,Rfl: * Adolph Mckeon RN - 02/06/2025 1:00 PM EDT Radiation Oncology Nursing Note Prior Radiotherapy: Yes, describe: 2007 right breast 25f fx, 5000 cGy No radiation treatments to show. (Treatments may have been administered in another system.) Current Systemic Treatment: No Presence of Pacemaker or ICD: No History of Autoimmune or Connective Tissue Disorders: No Pain: The patient's current pain level was assessed. They report currently having a pain of 0 out of 10. They feel their pain is under control without the use of pain medications. Review of Systems: Review of Systems Musculoskeletal: Positive for arthralgias (bilateral feet). All other systems reviewed and are negative. documented in this [facility] Work Phone: 1(380) 240-391904-17-2025 History of Present illness Narrative* Suzie Briggs DO - 01/25/2025 1:00 PM EDT BREAST SURGERY POST OPERATIVE VISIT Assessment/Plan Left DCIS g2 ER 91-100% -pTisNxMx 0 We reviewed the pathology results from surgery and the patient was provided with a copy of the pathology report. The cancer has been excised to negative margins. Her surgical treatment is complete. I will refer to radiation oncology for recommendations for adjuvant treatment. She is established with Franco Loya. Will continue to follow with Franco for recommendations for adjuvant endocrine therapy. I will follow up at the time of next mammogram for imaging and clinical exam or sooner for any breast concerns. Subjective Muriel Saldivar is a 69 y.o. female here for post op visit s/p left Magseed localizedexcisional biopsy. Date of surgery: 01/02/2025 Pathology Tumor size: DCIS on core biopsy only. Extent 5mm on core. Lymph nodes: NA Margins: negative, >2mm Staging: pTisNxMx Objective Physical Exam General: Alert and oriented x 3. Mood and affect are appropriate. HEENT: EOMI, PERRLA. Neck: supple, no masses, no cervical adenopathy. Cardiovascular: no lower extremity edema. Pulmonary: breathing non labored on room air. GI: Abdomen soft, no masses. No hepatomegaly or splenomegaly. Lymph nodes: No supraclavicular or axillary adenopathy bilaterally. Musculoskeletal: Full range of motion in the upper extremities bilaterally. Neuro: denies dizziness, tremors Breasts: The breasts were examined in both the seated and supine positions. RIGHT: surgically absent with SAEED reconstruction and nipple tattooing. No masses. Some fibrosis inthe superior and axillary boundaries of the breast. LEFT: The nipple is everted without nipple discharge. There are no skin changes, skin thickening, or dimpling. There are no masses palpated in the LEFT breast. Healing periareolar incision. Radiology review: All images and reports were personally reviewed. Suzie Briggs DO [facility] Work Phone: 1(361) 800-676404-17-2025 Instructions* Patient Instructions* Maryuri Andres RN - 01/25/2025 1:00 PM EDT Referral to Dr. Longo Radiation Oncology. [facility] Work Phone: 1(343) 931-907203-27-2025 Hospital Discharge instructions* Discharge Instructions* Suzie Briggs DO - 01/04/2025 10:[address] BRIGGS'S BREAST SURGERY DISCHARGE INSTRUCTIONS Wound Care Do not remove the surgical bra for 24 hours. Wear the bra to bed to reduce movement. Your incisions are covered with steri strips. Leave these in place until they begin to lift from the edges. If steri strips are still in place after 10 days you may remove the strips. You can place ice on your breast as needed for pain relief (20 minutes on / 20 minutes off). Activity You may shower after 24 hours, but no baths, tubs, or swimming for 2 weeks. Do not lift anything more than 10lbs or do any strenuous activity until seen in post op. You may drive when you are not taking narcotic pain medication. Medication Take prescription narcotic medication for severe, breakthrough pain. Do not drive while taking narcotics. You may take acetaminophen (Tylenol), ibuprofen (Motrin), or naproxen (Aleve) for pain. Do not takeNSAIDS if you have kidney disease, are on blood thinners, or have been previously told to avoid NSAIDS. You may take over the counter Arnica pills by mouth or use topical cream (Arnicare) to help with any bruising. When to Call Your wound is red, swollen, or has a lot of bleeding or drainage. Your pain is not controlled by the medicines. You have a fever or 100F or greater. Follow Up Dr. Briggs will review your pathology results at your post-op visit. Pathology results may take upto 2 weeks or longer. Results are available immediately on [place] once finalized. Please call the office at [phone] to make a follow up appointment. 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] Procedures LEFT MAG SEED LOCALIZED PARTIAL MASTECTOMY 73771 - AK MASTECTOMY PARTIAL ONCOPLASTIC CLOSURE USING LOCAL TISSUE REARRANGEMENT Surgeons * Suzie Briggs - Primary Resident/Fellow/Other Model And Pattern Supervisor: Surgeons and Role: * No surgeons found with a matching role * Procedure Summary Anesthesia: General ASA: II Anesthesia Staff: Anesthesiologist: DO Rochelle Damian-AA: MAY Christianson Estimated Blood Loss: 10mL Staff: Foil Operator: Evangelist Pino RN; Graciela Melvin RN Scrub Person: Darlene Franco SA; Concetta Samuel Details of Procedure: The patient underwent pre-operative magnetic seed localization in the radiology department prior tosurgery. Localization studies were reviewed confirming appropriate localization. The patient was identified by name and date and the operative site was marked. The patient was then transported to the operative suite. A sign-in was performed verifying patient identity, procedure and laterality. One dose of preoperative antibiotics was given. After induction of anesthesia the left breast and axilla were prepped and draped in the usual sterile fashion. Just prior to incision, a time-out was performed confirming patient identity, procedure and laterality. The sentimag probe was used to ident emerson the location of the targeted lesion and marked on the skin. A periareolar incision was made, and flaps were raised in the direction of the targeted lesion. The target lesion was then circumferentially dissected using electrocautery. Circumferential dissection was carried out to include the targe gage lesion and localization seed. The probe was used to again confirm the presence of the localization seed within the specimen. Once the specimen was completed dissected it was oriented with a silk suture- short suture superior, long suture lateral and passed off the field. The Vector ink kit was used to ink the specimen: red = superior, blue = inferior, yellow = medial, orange = lateral, green = anterior, and black = posterior. Six additional cavity margins were taken: superior, inferior, medial, lateral, anterior and posterior with black ink denoting the new margin. A specimen radiograph was performed. I reviewed the specimen radiograph myself confirming removal of the Magseed, biopsy clip, and calcifications. This image is saved in PACS for imaging documented removal of the targeted lesion. The posterior extent of dissection did not include pectoralis fascia. Clips were placed to denote the area of resection. Next, meticulous hemostasis was achieved. In order to close the cavity and decrease the cosmetic defect and thereby improve aesthetic outcome, a tissue transfer procedure was performed. Using electrocautery, separate tissue incisions were made on the anterior and posterior aspects. Flaps were raised in the medial, lateral, inferior and superior locations. These flaps were then elevated for a total area of 10 square centimeters. The flaps were then rotated and reapproximated in multiple layers to recreate the breast mound. The dermis was closed with 3-0 Vicryl sutureand the skin was closed with a running 4-0 Monocryl. Benzoin and steri-strips were used as dressing. The patient was then awoken from anesthesia and transported to the PACU in satisfactory condition. Task Performed by BUSINESS MANAGEMENT CONSULTANT or Wireworker Supervisor: retraction, skin closure SPECIMENS: 1. Left magseed localized partial mastectomy short suture superior, long lateral 2. new superior margin, black ink at new margin 3. new inferior margin, black ink at new margin 4. new medial margin, black ink at new margin 5. new lateral margin, black ink at new margin 6. new anterior margin, black ink at new margin 7. 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] Procedures LEFT MAG SEED LOCALIZED PARTIAL MASTECTOMY 22473 - AK MASTECTOMY PARTIAL ONCOPLASTIC CLOSURE USING LOCAL TISSUE REARRANGEMENT Surgeons * Suzie Briggs - Primary Resident/Fellow/Other Model And Pattern Supervisor: Surgeons and Role: * No surgeons found with a matching role * Procedure Summary Anesthesia: General ASA: II Anesthesia Staff: Anesthesiologist: DO Rochelle Damian-AA: MAY Christianson Estimated Blood Loss: 10mL Staff: Foil Operator: Evangelist Pino RN; Graciela Melvin RN Scrub Person: Darlene Franco SA; Concetta Samuel Details of Procedure: The patient underwent pre-operative magnetic seed localization in the radiology department prior tosurgery. Localization studies were reviewed confirming appropriate localization. The patient was identified by name and date and the operative site was marked. The patient was then transported to the operative suite. A sign-in was performed verifying patient identity, procedure and laterality. One dose of preoperative antibiotics was given. After induction of anesthesia the left breast and axilla were prepped and draped in the usual sterile fashion. Just prior to incision, a time-out was performed confirming patient identity, procedure and laterality. The sentimag probe was used to ident emerson the location of the targeted lesion and marked on the skin. A periareolar incision was made, and flaps were raised in the direction of the targeted lesion. The target lesion was then circumferentially dissected using electrocautery. Circumferential dissection was carried out to include the targe gage lesion and localization seed. The probe was used to again confirm the presence of the localization seed within the specimen. Once the specimen was completed dissected it was oriented with a silk suture- short suture superior, long suture lateral and passed off the field. The Vector ink kit was used to ink the specimen: red = superior, blue = inferior, yellow = medial, orange = lateral, green = anterior, and black = posterior. Six additional cavity margins were taken: superior, inferior, medial, lateral, anterior and posterior with black ink denoting the new margin. A specimen radiograph was performed. I reviewed the specimen radiograph myself confirming removal of the Magseed, biopsy clip, and calcifications. This image is saved in PACS for imaging documented removal of the targeted lesion. The posterior extent of dissection did not include pectoralis fascia. Clips were placed to denote the area of resection. Next, meticulous hemostasis was achieved. In order to close the cavity and decrease the cosmetic defect and thereby improve aesthetic outcome, a tissue transfer procedure was performed. Using electrocautery, separate tissue incisions were made on the anterior and posterior aspects. Flaps were raised in the medial, lateral, inferior and superior locations. These flaps were then elevated for a total area of 10 square centimeters. The flaps were then rotated and reapproximated in multiple layers to recreate the breast mound. The dermis was closed with 3-0 Vicryl sutureand the skin was closed with a running 4-0 Monocryl. Benzoin and steri-strips were used as dressing. The patient was then awoken from anesthesia and transported to the PACU in satisfactory condition. Task Performed by BUSINESS MANAGEMENT CONSULTANT or Wireworker Supervisor: retraction, skin closure SPECIMENS: 1. Left magseed localized partial mastectomy short suture superior, long lateral 2. new superior margin, black ink at new margin 3. new inferior margin, black ink at new margin 4. new medial margin, black ink at new margin 5. new lateral margin, black ink at new margin 6. new anterior margin, black ink at new margin 7. new posterior margin, black ink at new margin Suzie Briggs DO [facility] Work Phone: 1(217) 612-931803-27-2025 Attending History and physical note* Suzie Briggs DO - 01/04/2025 8:27 AM EDT H&P reviewed. The patient was examined and there are no changes to the H&P. Source Note - Brooklyn Warren APRN-CAMP TENDER - 12/26/2024 2:00 PM EDT CPM/PAT Evaluation Name: Muriel Matthews Gian Corona (Muriel Matthews Gian Radfordy) /Age: 312/22/1955/69 y.o. In-Person Chief Complaint: Breast cancer HPI Pleasant 69 y/o female presents with ductal carcinoma in situ of left breast scheduled for left magseed localized partial mastectomy on 01/04/25. She has a history of breast cancer. She recently had an abnormal mammogram from October,. Overall, she feels well. Denies recent fever/illness/chills. Past Medical History: Diagnosis Date BRCA1 negative 01/2007 Breast cancer (Multi) 05/13/2007 Hx antineoplastic chemo 2006 Personal history of irradiation 2006 Past Surgical History: Procedure Laterality Date BREAST BIOPSY 04/2007 BREAST LUMPECTOMY 2007 BREAST RECONSTRUCTION SECTION, LOW TRANSVERSE MASTECTOMY Right 10/25/2007 OTHER SURGICAL HISTORY Eyelid surgery Patient has no history on file for sexual activity. Family History Problem Relation Name Age of Onset Skin cancer Mother Bonita Springer Hypertension Father No Known Allergies Prior to Admission medications Medication Sig Start Date End Date Taking? Authorizing Provider valACYclovir (Valtrex) 500 mg tablet take 1 tablet by mouth twice a day for FLARE UPS 06/12/24 Historical Provider, Constitutional: Negative for fever, chills, or sweats ENMT: Negative for nasal discharge, congestion, ear pain, mouth pain, throat pain. Positive for glasses PRN. Positive for loose crown. Respiratory: Negative for cough, wheezing, shortness of breath Cardiac: Negative for chest pain, dyspnea on exertion, palpitations Gastrointestinal: Negative for nausea, vomiting, diarrhea, constipation, abdominal pain Genitourinary: Negative for dysuria, flank pain, frequency, hematuria Musculoskeletal: Negative for decreased ROM, pain, swelling, weakness. Positive for intermittent/bilateral foot pain. Neurological: Negative for dizziness, confusion, headache Psychiatric: Negative for mood changes Skin: Negative for itching, rash, ulcer Hematologic/Lymph: Negative for bruising, easy bleeding Allergic/Immunologic: Negative itching, sneezing, swelling Physical Exam Vitals reviewed. Constitutional: Appearance: Normal appearance. HENT: Head: Normocephalic. Mouth/Throat: Mouth: Mucous membranes are moist. Pharynx: Oropharynx is clear. Eyes: Pupils: Pupils are equal, round, and reactive to light. Cardiovascular: Rate and Rhythm: Normal rate and regular rhythm. Heart sounds: Normal heart sounds. Pulmonary: Effort: Pulmonary effort is normal. Breath sounds: Normal breath sounds. Abdominal: General: Bowel sounds are normal. Palpations: Abdomen is soft. Musculoskeletal: General: Normal range of motion. Cervical back: Normal range of motion. Skin: General: Skin is warm and dry. Neurological: General: No focal deficit present. Mental Status: She is alert and oriented to person, place, and time. Psychiatric: Mood and Affect: Mood normal. Behavior: Behavior normal. PAT AIRWAY: Airway: Mallampati:: II Neck ROM:: Full normal Testing/Diagnostic: Patient Specialist/PCP: PCP: Suzie Foley Visit Vitals BP 119/79 Pulse 81 Temp 36.7 C (98.1 F) (Temporal) Resp 16 Ht 1.575 m (5' 2) Wt 66.8 kg (147 lb 4.3 oz) SpO2 98% BMI 26.94 kg/m OB Status Postmenopausal Smoking Status Former BSA 1.71 m DASI Risk Score Flowsheet Row Pre-Admission Testing from 12/26/2024 in [facility] Can you take care of yourself (eat, dress, bathe, or use toilet)? 2.75 filed at 12/26/2024 1431 Can you walk indoors, such as around your house? 1.75 filed at 12/26/2024 1431 Can you walk a block or two on level ground? 2.75 filed at 12/26/2024 1431 Can you climb a flight of stairs or walk up a hill? 5.5 filed at 12/26/2024 1431 Can you run a short distance? 8 filed at 12/26/2024 1431 Can you do light work around the house like dusting or washing dishes? 2.7 filed at 12/26/2024 1431 Can you do moderate work around the house like vacuuming, sweeping floors or carrying groceries? 3.5 filed at 12/26/2024 1431 Can you do heavy work around the house like scrubbing floors or lifting and moving heavy furniture?8 filed at 12/26/2024 1431 Can you do yard work like raking leaves, weeding or pushing a mower? 4.5 filed at 12/26/2024 1431 Can you have sexual relations? 0 filed at 12/26/2024 1431 Can you participate in moderate recreational activities like golf, bowling, dancing, doubles tennisor throwing a baseball or football? 6 filed at 12/26/2024 1431 Can you participate in strenous sports like swimming, singles tennis, football, basketball, or skiing? 7.5 filed at 12/26/2024 1431 DASI SCORE 52.95 filed at 12/26/2024 1431 METS Score (Will be calculated only when all the questions are answered) 9.2 filed at 12/26/2024 1431 Caprini DVT Assessment Flowsheet Row Pre-Admission Testing from 12/26/2024 in [facility] DVT Score (IF A SCORE IS NOT CALCULATING, MUST SELECT A BMI TO COMPLETE) 7 filed at 12/26/2024 1431 Medical Factors Present cancer, chemotherapy, or previous malignancy filed at 12/26/2024 1431 Surgical Factors Major surgery planned, including arthroscopic and laproscopic (1-2 hours) filed at12/26/2024 1431 BMI (BMI MUST BE CHOSEN) 30 or less filed at 12/26/2024 1431 Modified Frailty Index Flowsheet Row Pre-Admission Testing from 12/26/2024 in [facility] Non-independent functional status (problems with dressing, bathing, personal grooming, or cooking) 0 filed at 12/26/2024 1432 History of diabetes mellitus 0 filed at 12/26/2024 1432 History of COPD 0 filed at 12/26/2024 1432 History of CHF No filed at 12/26/2024 1432 History of KS 0 filed at 12/26/2024 1432 History of Percutaneous Coronary Intervention, Cardiac Surgery, or Angina No filed at 12/26/2024 1432 Hypertension requiring the use of medication 0 filed at 12/26/2024 1432 Peripheral vascular disease 0 filed at 12/26/2024 1432 Impaired sensorium (cognitive impairement or loss, clouding, or delirium) 0 filed at 12/26/2024 1432 TIA or CVA withouy residual deficit 0 filed at 12/26/2024 1432 Cerebrovascular accident with deficit 0 filed at 12/26/2024 1432 Modified Frailty Index Calculator 0 filed at 12/26/2024 1432 [id number] Stroke Risk Points Current as of 13 minutes ago N/A 0 to 9 Points: Last Change: N/A The [id number] risk score (Lip JONI, et al. 2009. 2010 [employer]) quantifies the risk of stroke for a patient with atrial fibrillation. For patients without atrial fibrillation or under the age of 18 this score appears as N/A. Higher score values generally indicate higherrisk of stroke. This score is not applicable to this patient. Components are not calculated. Revised Cardiac Risk Index Flowsheet Row Pre-Admission Testing from 12/26/2024 in [facility] High-Risk Surgery (Intraperitoneal, Intrathoracic,Suprainguinal vascular) 0 filed at 12/26/2024 1432 History of ischemic heart disease (History of KS, History of positive exercuse test, Current chest paint considered due to myocardial ischemia, Use of nitrate therapy, ECG with pathological Q Waves) 0 filed at 12/26/2024 1432 History of congestive heart failure (pulmonary edemia, bilateral rales or S3 gallop, Paroxysmal nocturnal dyspnea, CXR showing pulmonary vascular redistribution) 0 filed at 12/26/2024 1432 History of cerebrovascular disease (Prior TIA or stroke) 0 filed at 12/26/2024 1432 Pre-operative insulin treatment 0 filed at 12/26/2024 1432 Pre-operative creatinine>2 mg/dl 0 filed at 12/26/2024 1432 Revised Cardiac Risk Calculator 0 filed at 12/26/2024 1432 Apfel Simplified Score Flowsheet Row Pre-Admission Testing from 12/26/2024 in [facility] Smoking status 1 filed at 12/26/2024 1432 History of motion sickness or PONV 0 filed at 12/26/2024 1432 Use of postoperative opioids 1 filed at 12/26/2024 1432 Gender - Female 1=Yes filed at 12/26/2024 1432 Apfel Simplified Score Calculator 3 filed at 12/26/2024 1432 Risk Analysis Index Results This Encounter 12/26/2024 1432 Do you live in a place other than your own home?: 0 When did you begin living in the place you are currently residing?: Greater than one year ago Any kidney failure, kidney not working well, or seeing a kidney doctor (plant operations coordinator)? If yes, was this for kidney stones or another problem?: 0 No Any history of chronic (long-term) congestive heart failure (CHF)?: 0 No Any shortness of breath when resting?: 0 No In the past five years, have you been diagnosed with or treated for cancer?: Yes During the last 3 months has it become difficult for you to remember things or organize your thoughts?: 0 No Have you lost weight of 10 pounds or more in the past 3 months without trying?: 0 No Do you have any loss of appetitie?: 0 No Getting Around (Mobility): 0 Can get around without help Eatin Can plan and prepare own meals Toiletin Can use toilet without any help Personal Hygiene (Bathing, Hand Washing, Changing Clothes): 0 Can shower or bathe without any help JORDAN Cancer History: Patient indicates history of cancer Total Risk Analysis Index Score Without Cancer: 22 Total Risk Analysis Index Score: 34 Stop Bang Score Flowsheet Row Pre-Admission Testing from 12/26/2024 in [facility] Do you snore loudly? 0 filed at 12/26/2024 1431 Do you often feel tired or fatigued after your sleep? 0 filed at 12/26/2024 1431 Has anyone ever observed you stop breathing in your sleep? 0 filed at 12/26/2024 1431 Do you have or are you being treated for high blood pressure? 0 filed at 12/26/2024 1431 Recent BMI (Calculated) 26.9 filed at 12/26/2024 1431 Is BMI greater than 35 kg/m2? 0=No filed at 12/26/2024 1431 Age older than 50 years old? 1=Yes filed at 12/26/2024 1431 Is your neck circumference greater than 17 inches (Male) or 16 inches (Female)? 0 filed at 12/26/2024 1431 Gender - Male 0=No filed at 12/26/2024 1431 STOP-BANG Total Score 1 filed at 12/26/2024 1431 Prodigy: High Risk Total Score: 12 Prodigy Age Score ARISCAT Score for Postoperative Pulmonary Complications Flowsheet Row Pre-Admission Testing from 12/26/2024 in [facility] Age Calculated Score 3 filed at 12/26/2024 1432 Preoperative SpO2 0 filed at 12/26/2024 1432 Respiratory infection in the last month Either upper or lower (i.e., URI, bronchitis, pneumonia), with fever and antibiotic treatment 0 filed at 12/26/2024 1432 Preoperative anemia (Hgb less than 10 g/dl) 0 filed at 12/26/2024 1432 Surgical incision 0 filed at 12/26/2024 1432 Duration of surgery 0 filed at 12/26/2024 1432 Emergency Procedure 0 filed at 12/26/2024 1432 ARISCAT Total Score 3 filed at 12/26/2024 1432 Logan Perioperative Risk for Myocardial Infarction or Cardiac Arrest (JOSÉ) Flowsheet Row Pre-Admission Testing from 12/26/2024 in [facility] Calculated Age Score 1.4 filed at 12/26/2024 1433 Functional Status 0 filed at 12/26/2024 1433 ASA Class -3.29 filed at 12/26/2024 1433 Creatinine 0 filed at 12/26/2024 1433 Type of Procedure -1.61 filed at 12/26/2024 1433 JOSÉ Total Score -8.75 filed at 12/26/2024 1433 JOSÉ % 0.02 filed at 12/26/2024 1433 Assessment and Plan: Assessment and Plan: Preop: OR with Dr. Briggs on 01/04/25 for left mag seed localized partial mastectomy Labs ordered per Dr. Briggs. EKG obtained and enclosed. NSR. VR: 74 BPM Neurologic: The patient is at an increased risk for post operative delirium secondary to age >/=65 . Preoperative brain exercise educational handout provided to patient. The patient is at an increased risk for perioperative stroke secondary to general anesthesia. Cardiac: Manuel Activity Status Index (DASI) DASI Score: 52.95 MET Score: 9.2 RCRI 0 which is 3.9% 30 day risk of MACE (risk for cardiac , nonfatal myocardial infarction, and nonfactal cardiac arrest) JOSÉ score which indicates a 0.02 % risk of intraoperative or 30-day postoperative MACE Pulmonary: STOP-BANG score of 1 . Low risk of obstructive sleep apnea. ARISCAT: 3 points which is a low (1.6%) risk of in-hospital post-op pulmonary complications GI: Apfel: 3 points 61% risk for post operative N/V Neuro-muscular: Arthritis: Bilat feet Oncologic: Breast cancer: Dx in April 2007-went through treatment at this time. Has been off any medical treatment since 2012. Reason for upcoming procedure. Hematologic: Caprini score 7, patient at high risk for perioperative DVT. Patient provided with VTE education/handout. Skin check: Patient was instructed to make surgeon aware of any skin changes/concerns prior to surgery. Anesthesia: No history of anesthesia complications. No anesthesia concerns. *See risk scores as previously documented [facility] Work Phone: [phone] History and physical note* Suzie Briggs DO - 01/04/2025 8:27 AM EDT H&P reviewed. The patient was examined and there are no changes to the H&P. Source Note - Brooklyn Warren APRN-JOVAN - 12/26/2024 2:00 PM EDT CPM/PAT Evaluation Name: Muriel Corona (Muriel Saldivar) /Age: 312/22/1955/69 y.o. In-Person Chief Complaint: Breast cancer HPI Pleasant 69 y/o female presents with ductal carcinoma in situ of left breast scheduled for left magseed localized partial mastectomy on 01/04/25. She has a history of breast cancer. She recently had an abnormal mammogram from October,. Overall, she feels well. Denies recent fever/illness/chills. Past Medical History: Diagnosis Date BRCA1 negative 01/2007 Breast cancer (Multi) 05/13/2007 Hx antineoplastic chemo 2006 Personal history of irradiation 2006 Past Surgical History: Procedure Laterality Date BREAST BIOPSY 04/2007 BREAST LUMPECTOMY 2006 BREAST RECONSTRUCTION SECTION, LOW TRANSVERSE MASTECTOMY Right 10/25/2007 OTHER SURGICAL HISTORY Eyelid surgery Patient has no history on file for sexual activity. Family History Problem Relation Name Age of Onset Skin cancer Mother Bonita Springer Hypertension Father No Known Allergies Prior to Admission medications Medication Sig Start Date End Date Taking? Authorizing Provider valACYclovir (Valtrex) 500 mg tablet take 1 tablet by mouth twice a day for FLARE UPS 06/12/24 Historical Provider, Constitutional: Negative for fever, chills, or sweats ENMT: Negative for nasal discharge, congestion, ear pain, mouth pain, throat pain. Positive for glasses PRN. Positive for loose crown. Respiratory: Negative for cough, wheezing, shortness of breath Cardiac: Negative for chest pain, dyspnea on exertion, palpitations Gastrointestinal: Negative for nausea, vomiting, diarrhea, constipation, abdominal pain Genitourinary: Negative for dysuria, flank pain, frequency, hematuria Musculoskeletal: Negative for decreased ROM, pain, swelling, weakness. Positive for intermittent/bilateral foot pain. Neurological: Negative for dizziness, confusion, headache Psychiatric: Negative for mood changes Skin: Negative for itching, rash, ulcer Hematologic/Lymph: Negative for bruising, easy bleeding Allergic/Immunologic: Negative itching, sneezing, swelling Physical Exam Vitals reviewed. Constitutional: Appearance: Normal appearance. HENT: Head: Normocephalic. Mouth/Throat: Mouth: Mucous membranes are moist. Pharynx: Oropharynx is clear. Eyes: Pupils: Pupils are equal, round, and reactive to light. Cardiovascular: Rate and Rhythm: Normal rate and regular rhythm. Heart sounds: Normal heart sounds. Pulmonary: Effort: Pulmonary effort is normal. Breath sounds: Normal breath sounds. Abdominal: General: Bowel sounds are normal. Palpations: Abdomen is soft. Musculoskeletal: General: Normal range of motion. Cervical back: Normal range of motion. Skin: General: Skin is warm and dry. Neurological: General: No focal deficit present. Mental Status: She is alert and oriented to person, place, and time. Psychiatric: Mood and Affect: Mood normal. Behavior: Behavior normal. PAT AIRWAY: Airway: Mallampati:: II Neck ROM:: Full normal Testing/Diagnostic: Patient Specialist/PCP: PCP: Suzie Foley Visit Vitals BP 119/79 Pulse 81 Temp 36.7 C (98.1 F) (Temporal) Resp 16 Ht 1.575 m (5' 2) Wt 66.8 kg (147 lb 4.3 oz) SpO2 98% BMI 26.94 kg/m OB Status Postmenopausal Smoking Status Former BSA 1.71 m DASI Risk Score Flowsheet Row Pre-Admission Testing from 12/26/2024 in [facility] Can you take care of yourself (eat, dress, bathe, or use toilet)? 2.75 filed at 12/26/2024 1431 Can you walk indoors, such as around your house? 1.75 filed at 12/26/2024 1431 Can you walk a block or two on level ground? 2.75 filed at 12/26/2024 1431 Can you climb a flight of stairs or walk up a hill? 5.5 filed at 12/26/2024 1431 Can you run a short distance? 8 filed at 12/26/2024 1431 Can you do light work around the house like dusting or washing dishes? 2.7 filed at 12/26/2024 1431 Can you do moderate work around the house like vacuuming, sweeping floors or carrying groceries? 3.5 filed at 12/26/2024 1431 Can you do heavy work around the house like scrubbing floors or lifting and moving heavy furniture?8 filed at 12/26/2024 1431 Can you do yard work like raking leaves, weeding or pushing a mower? 4.5 filed at 12/26/2024 1431 Can you have sexual relations? 0 filed at 12/26/2024 1431 Can you participate in moderate recreational activities like golf, bowling, dancing, doubles tennisor throwing a baseball or football? 6 filed at 12/26/2024 1431 Can you participate in strenous sports like swimming, singles tennis, football, basketball, or skiing? 7.5 filed at 12/26/2024 1431 DASI SCORE 52.95 filed at 12/26/2024 1431 METS Score (Will be calculated only when all the questions are answered) 9.2 filed at 12/26/2024 1431 Caprini DVT Assessment Flowsheet Row Pre-Admission Testing from 12/26/2024 in [facility] DVT Score (IF A SCORE IS NOT CALCULATING, MUST SELECT A BMI TO COMPLETE) 7 filed at 12/26/2024 1431 Medical Factors Present cancer, chemotherapy, or previous malignancy filed at 12/26/2024 1431 Surgical Factors Major surgery planned, including arthroscopic and laproscopic (1-2 hours) filed at12/26/2024 1431 BMI (BMI MUST BE CHOSEN) 30 or less filed at 12/26/2024 1431 Modified Frailty Index Flowsheet Row Pre-Admission Testing from 12/26/2024 in [facility] Non-independent functional status (problems with dressing, bathing, personal grooming, or cooking) 0 filed at 12/26/2024 1432 History of diabetes mellitus 0 filed at 12/26/2024 1432 History of COPD 0 filed at 12/26/2024 1432 History of CHF No filed at 12/26/2024 1432 History of KS 0 filed at 12/26/2024 1432 History of Percutaneous Coronary Intervention, Cardiac Surgery, or Angina No filed at 12/26/2024 1432 Hypertension requiring the use of medication 0 filed at 12/26/2024 1432 Peripheral vascular disease 0 filed at 12/26/2024 1432 Impaired sensorium (cognitive impairement or loss, clouding, or delirium) 0 filed at 12/26/2024 1432 TIA or CVA withouy residual deficit 0 filed at 12/26/2024 1432 Cerebrovascular accident with deficit 0 filed at 12/26/2024 1432 Modified Frailty Index Calculator 0 filed at 12/26/2024 1432 [id number] Stroke Risk Points Current as of 13 minutes ago N/A 0 to 9 Points: Last Change: N/A The [id number] risk score (Lip JONI, et al. 2009. 2010 [employer]) quantifies the risk of stroke for a patient with atrial fibrillation. For patients without atrial fibrillation or under the age of 18 this score appears as N/A. Higher score values generally indicate higherrisk of stroke. This score is not applicable to this patient. Components are not calculated. Revised Cardiac Risk Index Flowsheet Row Pre-Admission Testing from 12/26/2024 in [facility] High-Risk Surgery (Intraperitoneal, Intrathoracic,Suprainguinal vascular) 0 filed at 12/26/2024 1432 History of ischemic heart disease (History of KS, History of positive exercuse test, Current chest paint considered due to myocardial ischemia, Use of nitrate therapy, ECG with pathological Q Waves) 0 filed at 12/26/2024 1432 History of congestive heart failure (pulmonary edemia, bilateral rales or S3 gallop, Paroxysmal nocturnal dyspnea, CXR showing pulmonary vascular redistribution) 0 filed at 12/26/2024 1432 History of cerebrovascular disease (Prior TIA or stroke) 0 filed at 12/26/2024 1432 Pre-operative insulin treatment 0 filed at 12/26/2024 1432 Pre-operative creatinine>2 mg/dl 0 filed at 12/26/2024 1432 Revised Cardiac Risk Calculator 0 filed at 12/26/2024 1432 Apfel Simplified Score Flowsheet Row Pre-Admission Testing from 12/26/2024 in [facility] Smoking status 1 filed at 12/26/2024 1432 History of motion sickness or PONV 0 filed at 12/26/2024 1432 Use of postoperative opioids 1 filed at 12/26/2024 1432 Gender - Female 1=Yes filed at 12/26/2024 1432 Apfel Simplified Score Calculator 3 filed at 12/26/2024 1432 Risk Analysis Index Results This Encounter 12/26/2024 1432 Do you live in a place other than your own home?: 0 When did you begin living in the place you are currently residing?: Greater than one year ago Any kidney failure, kidney not working well, or seeing a kidney doctor (plant operations coordinator)? If yes, was this for kidney stones or another problem?: 0 No Any history of chronic (long-term) congestive heart failure (CHF)?: 0 No Any shortness of breath when resting?: 0 No In the past five years, have you been diagnosed with or treated for cancer?: Yes During the last 3 months has it become difficult for you to remember things or organize your thoughts?: 0 No Have you lost weight of 10 pounds or more in the past 3 months without trying?: 0 No Do you have any loss of appetitie?: 0 No Getting Around (Mobility): 0 Can get around without help Eatin Can plan and prepare own meals Toiletin Can use toilet without any help Personal Hygiene (Bathing, Hand Washing, Changing Clothes): 0 Can shower or bathe without any help JORDAN Cancer History: Patient indicates history of cancer Total Risk Analysis Index Score Without Cancer: 22 Total Risk Analysis Index Score: 34 Stop Bang Score Flowsheet Row Pre-Admission Testing from 12/26/2024 in [facility] Do you snore loudly? 0 filed at 12/26/2024 1431 Do you often feel tired or fatigued after your sleep? 0 filed at 12/26/2024 1431 Has anyone ever observed you stop breathing in your sleep? 0 filed at 12/26/2024 1431 Do you have or are you being treated for high blood pressure? 0 filed at 12/26/2024 1431 Recent BMI (Calculated) 26.9 filed at 12/26/2024 1431 Is BMI greater than 35 kg/m2? 0=No filed at 12/26/2024 1431 Age older than 50 years old? 1=Yes filed at 12/26/2024 1431 Is your neck circumference greater than 17 inches (Male) or 16 inches (Female)? 0 filed at 12/26/2024 1431 Gender - Male 0=No filed at 12/26/2024 1431 STOP-BANG Total Score 1 filed at 12/26/2024 1431 Prodigy: High Risk Total Score: 12 Prodigy Age Score ARISCAT Score for Postoperative Pulmonary Complications Flowsheet Row Pre-Admission Testing from 12/26/2024 in [facility] Age Calculated Score 3 filed at 12/26/2024 1432 Preoperative SpO2 0 filed at 12/26/2024 1432 Respiratory infection in the last month Either upper or lower (i.e., URI, bronchitis, pneumonia), with fever and antibiotic treatment 0 filed at 12/26/2024 1432 Preoperative anemia (Hgb less than 10 g/dl) 0 filed at 12/26/2024 1432 Surgical incision 0 filed at 12/26/2024 1432 Duration of surgery 0 filed at 12/26/2024 1432 Emergency Procedure 0 filed at 12/26/2024 1432 ARISCAT Total Score 3 filed at 12/26/2024 1432 Logan Perioperative Risk for Myocardial Infarction or Cardiac Arrest (JOSÉ) Flowsheet Row Pre-Admission Testing from 12/26/2024 in [facility] Calculated Age Score 1.4 filed at 12/26/2024 1433 Functional Status 0 filed at 12/26/2024 1433 ASA Class -3.29 filed at 12/26/2024 1433 Creatinine 0 filed at 12/26/2024 1433 Type of Procedure -1.61 filed at 12/26/2024 1433 JOSÉ Total Score -8.75 filed at 12/26/2024 1433 JOSÉ % 0.02 filed at 12/26/2024 1433 Assessment and Plan: Assessment and Plan: Preop: OR with Dr. Briggs on 01/04/25 for left mag seed localized partial mastectomy Labs ordered per Dr. Briggs. EKG obtained and enclosed. NSR. VR: 74 BPM Neurologic: The patient is at an increased risk for post operative delirium secondary to age >/=65 . Preoperative brain exercise educational handout provided to patient. The patient is at an increased risk for perioperative stroke secondary to general anesthesia. Cardiac: Manuel Activity Status Index (DASI) DASI Score: 52.95 MET Score: 9.2 RCRI 0 which is 3.9% 30 day risk of MACE (risk for cardiac , nonfatal myocardial infarction, and nonfactal cardiac arrest) JOSÉ score which indicates a 0.02 % risk of intraoperative or 30-day postoperative MACE Pulmonary: STOP-BANG score of 1 . Low risk of obstructive sleep apnea. ARISCAT: 3 points which is a low (1.6%) risk of in-hospital post-op pulmonary complications GI: Apfel: 3 points 61% risk for post operative N/V Neuro-muscular: Arthritis: Bilat feet Oncologic: Breast cancer: Dx in April 2007-went through treatment at this time. Has been off any medical treatment since 2012. Reason for upcoming procedure. Hematologic: Caprini score 7, patient at high risk for perioperative DVT. Patient provided with VTE education/handout. Skin check: Patient was instructed to make surgeon aware of any skin changes/concerns prior to surgery. Anesthesia: No history of anesthesia complications. No anesthesia concerns. *See risk scores as previously documented [facility] Work Phone: [phone] Telephone encounter Note* Telephone Encounter - Suzie Foley APRN.CNP - 11/30/2024 2:57 PM EST The following approved medication requests have been transmitted electronically. Requested Prescriptions Signed Prescriptions Disp Refills valACYclovir (VALTREX) 1 gram tablet 21 tablet 2 Sig: Take 1 tablet by mouth three times a day. Authorizing Provider: SUZIE FOLEY APRN.CNP [facility]02-20-2025 Miscellaneous Notes* Telephone Encounter - Suzie Foley APRN.CNP - 11/30/2024 2:57 PM EST The following approved medication requests have been transmitted electronically. Requested Prescriptions Signed Prescriptions Disp Refills valACYclovir (VALTREX) 1 gram tablet 21 tablet 2 Sig: Take 1 tablet by mouth three times a day. Authorizing Provider: SUZIE FOLEY APRN.JOVAN * Telephone Encounter - Rachele Tilley LPN - 11/30/2024 1:17 PM EST Patient calling asking if Suzie Foley [employer] would give her rx for her generic Valacyclovir 500 mg one tablet twice daily as needed for flare of herpes. Patient [facility].Patient had rx from provider in [facility] but refill . Pending rx if wanted, needs completed. Please advise documented in this encounter[facility]02-20-2025 Telephone encounter Note * Telephone Encounter - Rachele Tilley LPN - 11/30/2024 1:17 PM EST Patient calling asking if Suzie Foley [employer] would give her rx for her generic Valacyclovir 500 mg one tablet twice daily as needed for flare of herpes. Patient uses [facility] for her pharmacy.Patient had rx from provider in [facility] but refill . Pending rx if wanted, needs completed. 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 First, we discussed surgical options: breast conservation vs mastectomy. Breast conservation involves removal of the tumor with a rim of normal breast tissue called a margin. BCT is often done in conjunction with radiation to decrease risk of recurrence. Mastectomy involves removal of all breast tissue. When mastectomy is recommended, referral to a plastic surgeon for reconstruction is recommended. Given the small size of her cancer, she would be an excellent candidate for breast conservation. We then discussed the role of axillary staging. We discussed sentinel lymph node biopsy, indications for axillary node dissection and risks and benefits of each procedure. Next, we discussed adjuvant therapies to surgery. Radiation is usually recommended when BCT is performed. Women 70 or greater with early stage hormone receptor positive cancer may be able to omit radiation. Radiation is recommended after mastectomy for tumors larger than 5cm, positive lymph nodes, or positive margins. The need for chemotherapy will be based on surgical pathology and will be decided by the medical oncologist. Genomic testing may be ordered on the tissue after surgical excision to help guide decision making for systemic therapy. The medical oncologist is also responsible for prescribing endocrine therapy for hormone receptor positive tumors. Janna has inquired on the utility of breast MRI prior to surgery to evaluate for extent of disease on the left and for surveillance of the right. We discussed pros and cons of MRI in that it may result in additional imaging and possibly biopsies. From a diagnostic perspective, I would feel comfortable proceeding with lumpectomy without additional imaging but am happy to order for Janna given her personal history of breast cancer. She will think over her options regarding additional breast imaging. Individual shared decision making was used to determine our surgical plan. Muriel will be scheduled for left Magseed localized partial mastectomy on 01/04/2025. She understandsif breast MRI is performed and shows additional areas of concern these will need to be fully workedup prior to proceeding with surgery. Risks, benefits, alternatives and perioperative expectations were discussed in detail including: bleeding, infection, positive margin status necessitating return to OR, injury to nearby structures and risk of lymphedema with axillary surgery. Subjective Muriel Corona is a 68 y.o. female presents today for evaluation of recently diagnosed carcinoma of the left breast. The patient was initially referred for evaluation of an abnormal mammogram first noted 11/08/2024. Follow-up diagnostic imaging on 11/14/2024 reveals new left breast calcifications in the superior central breast measuring 0.3cm . stereotactic biopsy was performed on 11/16/2024: FINAL DIAGNOSIS A. BREAST CALCIFICATIONS, LEFT, CORE BIOPSY: -- Ductal carcinoma in situ, intermediate nuclear grade, solid and cribriform patterns with comedonecrosis and microcalcifications, see note and synoptic biomarker summary. Estrogen Receptor (ER) Status Positive (greater than 10% of cells demonstrate nuclear positivity) Percentage of Cells with Nuclear Positivity 91-100% Menarche: 12 AFLB: 37 Menopause: 52- chemo induced. HRT: no Previous biopsies: Yes - right breast 2007 Previous breast surgeries: Yes - right lumpectomy alnd -> completion mastectomy with SAEED reconstruction. Prior breast cancer: Yes - right breast 2006 HER2+ breast cancer with axillary involvement s/p lumpectomy alnd followed by completion mastectomy with SAEED reconstruction in 2007. PMRT was then delivered to the flap and completed 05/2008. Started tamoxifen. BRCA1 & 2 BESTING NEGATIVE. Stopped tamoxifen and started AI March 2011.Changed to aromasin February 2013. Completed endocrine tx 2016. Family history: maternal great grandmother with breast cancer- age unknown Review of Systems Constitutional symptoms: Denies generalized fatigue. Denies weight change, fevers/chills, difficulty sleeping Eyes: Denies double vision, glaucoma, cataracts. Ear/nose/throat/mouth: Denies hearing changes, sore throat, sinus problems. Cardiovascular: No chest pain. Denies irregular heartbeat. Denies ankle swelling. Respiratory: No wheezing, cough, or shortness of breath. Gastrointestinal: No abdominal pain, No nausea/vomiting. No indigestion/heartburn. No change in bowel habits. No constipation or diarrhea. Genitourinary: No urinary incontinence. No urinary frequency. No painful urination. Musculoskeletal: No bone pain, no muscle pain, no joint pain. Integumentary: No rash. No masses. No changes in moles. No easy bruising. Neurological: No headaches. No tremors. No numbness/tingling. Psychiatric: No anxiety. No depression. Endocrine: No excessive thirst. Not too hot or too cold. Not tired or fatigued. Hematological/lymphatic: No swollen glands or blood clotting problems. No bruising. Objective Physical Exam General: Alert and oriented x 3. Mood and affect are appropriate. HEENT: EOMI, PERRLA. Neck: supple, no masses, no cervical adenopathy. Cardiovascular: no lower extremity edema. Pulmonary: breathing non labored on room air. GI: Abdomen soft, no masses. No hepatomegaly or splenomegaly. Lymph nodes: No supraclavicular or axillary adenopathy bilaterally. Musculoskeletal: Full range of motion in the upper extremities bilaterally. Shoulder abduction test: no limitations. Neuro: denies dizziness, tremors Breasts: The breasts were examined in both the seated and supine positions. RIGHT: surgically absent with SAEED reconstruction. 3d nipple tattooing. No masses appreciated. Somemild, radiation related fibrosis in the superior breast but overall good cosmesis. LEFT: The nipple is everted without nipple discharge. There are no skin changes, skin thickening, or dimpling. There are no masses palpated in the LEFT breast. Some post biopsy ecchymosis- mild. Radiology review: All images and reports were personally reviewed. Suzie Briggs DO documented in this [facility] Work Phone: [phone]) [phone] NoteThis procedure was not performed. Procedure: [id number] Reason: performed under a different accession (nursing notes started under this accession) [id number] Hospital Discharge instructions* Discharge Instructions* Sherine Sears RN - 11/16/2024 11:16 AM EST AFTER THE TEST A steri-strip and bandage will be placed over the incision. You may shower after 24 hours. Remove bandage after 24 hours. Remove bandage after the shower. Leave the steri-strips in place to fall off on their own. If after 1 week the steri- strips are still on, you may remove them. Avoid swimming or soaking in tub for 3 days. You may have mild discomfort at the test site. If needed, you may take Tylenol (Acetaminophen) for pain. Please avoid taking NSAIDs, Motrin, Advil, Aleve, or ibuprofen for 24 hours following the biopsy. After 24 hours you may resume NSAIDSs. If you take aspirin, Plavix, Coumadin, Xarelto or Eliquis please tell us. If these medications werestopped by your provider, please ask them when to resume. You may have some tenderness, bruising or slight bleeding at the site. Please apply ice packs to the site for 15 minutes on and 15 minutes off for a 2 hour minimum. Most people can return to their usual routine after the procedure. Avoid Strenuous activity for 24 hours. Sleep in a bra the night after your biopsy. Continue to do so for comfort. Call your provider if you have any of the following symptoms : Fever Increased pain Increased bleeding Redness Increased swelling Yellowish drainage Your provider will get the biopsy results within 5 - 7 days. Call your provider with any questions. Patient education brochure and pain/comfort measures have been reviewed. Phone number provided to contact [facility] if problems arise. Patient verbalized understanding of home going instructions. documented in [facility] Work Phone: [phone]) 254-812902-06-2025 NoteThis procedure was not performed. Procedure: [id number] Reason: performed under a different accession (nursing notes started under this accession)[facility]02-05-2025 Telephone encounter Note* Telephone Encounter - Suzie Foley APRN.CNP - 11/15/2024 1:36 PM EST Noted, thank you Suzie Foley APRN.CNP [facility]02-05-2025 Miscellaneous Notes* Telephone Encounter - Suzie Foley APRN.CNP - 11/15/2024 1:36 PM EST Noted, thank you Suzie Foley APRN.CNP * Telephone Encounter - Fannie Zamorano LPN - 11/13/2024 3:42 PM EST COLINI: Spoke with pt and was given results below. Pt reports she has an apt with her oncologist tomorrow 11-14-24 and they are aware she needs additional images but did not mention anything bout an US. Pt has asked that this message be faxed to the for her apt 11-14-24. FAX: [facility] [phone] Done. Fannie Zamorano LPN * Telephone Encounter - Megan Martin LPN - 11/13/2024 1:17 PM EST TC to pt. LM to call office, ask for triage nurse to get results. Megan Martin LPN * Telephone Encounter - Suzie Foley APRN.CNP - 11/13/2024 11:59 AM EST Can you please call the patient and let her know that I reviewed her mammogram results from . Mammogram showed some new calcifications in the left breast. As well as the axillary lymph node. They are recommending additional views. I would like to order a diagnostic mammogram including a breast ultrasound. Can you please ask if she is planning to have this completed at again or if already placed orders? Suzie Foley APRN.JOVAN documented in this encounterV[facility]02-03-2025 Telephone encounter Note * Telephone Encounter - Fannie Zamorano LPN - 11/13/2024 3:42 PM EST FYI: Spoke with pt and was given results below. Pt reports she has an apt with her oncologist tomorrow 11-14-24 and they are aware she needs additional images but did not mention anything bout an US. Pt has asked that this message be faxed to the for her apt 11-14-24. FAX: [facility] [phone] Done. Fannie Zamorano LPN [facility]02-03-2025 Telephone encounter Note* Telephone Encounter - Megan Martin LPN - 11/13/2024 1:17 PM EST TC to pt. LM to call office, ask for triage nurse to get results. Megan Martin LPN [facility]02-03-2025 Telephone encounter Note* Telephone Encounter - Suzie Foley APRN.CNP - 11/13/2024 11:59 AM EST Can you please call the patient and let her know that I reviewed her mammogram results from . Mammogram showed some new calcifications in the left breast. As well as the axillary lymph node. They are recommending additional views. I would like to order a diagnostic mammogram including a breast ultrasound. Can you please ask if she is planning to have this completed at again or if already placed orders? Suzie Foley APRN.JOVAN [facility]11-26-2024 NoteHNO ID: [id number] Author: MARÍA GARSIA MA Service: ? Author Type: Staff Sonographer Type: Progress Notes Filed: 09/05/2024 15:23 Note Text: POPULATION HEALTH NAVIGATION OUTREACH Action/FYI Topic Due (Y or N) Comments Medicare Wellness Y PCP Follow up Y DUE in JANUARY Mammogram Y Colorectal Cancer Screening A1C Dilated Retinal Exam (NOELLE) KED (UACR and eGFR) HCC Y Flu Vaccine Y Care Everywhere Reviewed AlephCloud Systemshart Activation Updated Appointment Note Reason for Outreach Care Gap/HCC or Scheduling Wellness Visits Care Gaps due: Medicare Annual Wellness Visit Follow-up Appointment Breast Cancer Screening Flu Vaccine Patient Contacted: Unable or unnecessary to reach patient: Left message Metacloud message sent Navigation Signature: María Garsia MA September 05, 2024 9:32 [facility]11-26-2024 History of Present illness Narrative* María Garsia MA - 09/05/2024 9:32 AM EST POPULATION HEALTH NAVIGATION OUTREACH Action/FYI Topic Due (Y or N) Comments Medicare Wellness Y PCP Follow up Y DUE in JANUARY Mammogram Y Colorectal Cancer Screening A1C Dilated Retinal Exam (NOELLE) KED (UACR and eGFR) HCC Y Flu Vaccine Y Care Everywhere Reviewed MyChart Activation Updated Appointment Note Reason for Outreach Care Gap/HCC or Scheduling Wellness Visits Care Gaps due: Medicare Annual Wellness Visit Follow-up Appointment Breast Cancer Screening Flu Vaccine Patient Contacted: Unable or unnecessary to reach patient: Left message Metacloud message sent Navigation Signature: María Garsia MA September 05, 2024 9:32 AM documented in this encounterVeterans Health [facility]11-26-2024 NotePatient Outreach (NETNAV) MURIEL CABRERA ([id number]) 1955 F Date Time Provider Department 09/05/24 MARÍA GARSIA NETNAV During your visit today, we recorded the following information about you: María Garsia MA 09/05/2024 3:23 PM Signed POPULATION HEALTH NAVIGATION OUTREACH Action/FYI Topic Due (Y or N) Comments Medicare Wellness Y PCP Follow up Y DUE in JANUARY Mammogram Y Colorectal Cancer Screening A1C Dilated Retinal Exam (NOELLE) KED (UACR and eGFR) HCC Y Flu Vaccine Y Care Everywhere Reviewed MyChart Activation Updated Appointment Note Reason for Outreach Care Gap/HCC or Scheduling Wellness Visits Care Gaps due: Medicare Annual Wellness Visit Follow-up Appointment Breast Cancer Screening Flu Vaccine Patient Contacted: Unable or unnecessary to reach patient: Left message Metacloud message sent Navigation Signature: María Garsia MA September 05, 2024 9:32 AM Allergies As of Date: 09/05/2024 (No Known Allergies) Date Reviewed: 07/20/2024 Reviewed by: Fadia Klein LPN - Fully Assessed Reason for Visit: Population Health Navigation Outreach [3910] Cmt: [facility] JONNIE PCSA Prescriptions as of 09/05/2024 - clobetasol (TEMOVATE) 0.05 % ointment Apply to affected area two times a day. - meloxicam (MOBIC) 15 mg tablet Take 1 tablet by mouth once daily. With food. - multivitamin (DAILY MULTIPLE) ORAL Tab Take one(1) tablet daily. Problem List As Of Date 09/05/2024 Noted Resolved Colon Cancer Screening [Z12.11] 08/13/2009 Malignant neoplasm of female breast (HCC) [C50.* Encounter Status:Closed by MARÍA GARSIA on 09/05/24[facility]10-28-2024 Telephone encounter Note* Telephone Encounter - Evangelina Osuna MA - 08/07/2024 9:00 AM EDT Per TE 07/27/24 this was faxed. Will resend today to number Provider by pt within [facility]. Did ask pt if she contacted them to see if this was received. Evangelina Osuna MA [facility]10-28-2024 Miscellaneous Notes* Telephone Encounter - Evangelina Osuna MA - 08/07/2024 9:00 AM EDT Per TE 07/27/24 this was faxed. Will resend today to number Provider by pt within [facility]. Did ask pt if she contacted them to see if this was received. Evangelina Osuna MA documented in this encounterVeter[facility] Health Administration10-17-2024 Telephone encounter Note * Telephone Encounter - Suzie Foley APRN.CNP - 07/27/2024 10:50 AM EDT The following approved medication requests have been transmitted electronically. Requested Prescriptions Signed Prescriptions Disp Refills clobetasol (TEMOVATE) 0.05 % ointment 60 g 3 Sig: Apply to affected area two times a day. Authorizing Provider: SUZIE FOLEY APRN.CAMP TENDER [facility]10-17-2024 Miscellaneous Notes* Telephone Encounter - Suzie Foley APRN.CNP - 07/27/2024 10:50 AM EDT The following approved medication requests have been transmitted electronically. Requested Prescriptions Signed Prescriptions Disp Refills clobetasol (TEMOVATE) 0.05 % ointment 60 g 3 Sig: Apply to affected area two times a day. Authorizing Provider: SUZIE FOLEY APRN.CNP * Telephone Encounter - Shikha Heredia MA - 07/27/2024 10:31 AM EDT Pt notified. States that she is plant based and pretty active, she admits she might be able to exercise more. She states she can try to be a little more severe with diet but is not sure how she can do that. She states that her results are about the same as they were 2 years ago. Mammogram order faxed to [facility]. 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 Uses [facility]. She states our office is great. Shikha Heredia MA * Telephone Encounter - Suzie Foley APRN.CNP - 07/27/2024 9:45 AM EDT Can you please call the patient and let her know that I reviewed her lab results. Labs were relatively normal however LDL cholesterol was mildly elevated at 126. Vitamin D was low at 29. I would recommend lifestyle changes at home to help improve cholesterol. Be mindful of processed foods in the diet, increase lean protein, vegetables, get some form of exercise. Recommend taking vitamin D 2000 to 4000 IUs daily. Preop forms have been completed and faxed to surgeon's office. Please let me know if she has any questions. Thank you. Suzie Foley APRN.CNP documented in this encounterVeterans Health Administration10-17-2024 Telephone encounter Note * Telephone Encounter - Shikha Heredia MA - 07/27/2024 10:31 AM EDT Pt notified. States that she is plant based and pretty active, she admits she might be able to exercise more. She states she can try to be a little more severe with diet but is not sure how she can do that. She states that her results are about the same as they were 2 years ago. Mammogram order faxed to [facility]. 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 [facility]ses [facility]. She states our office is great. Shikha Heredia MA [facility]10-17-2024 Telephone encounter Note* Telephone Encounter - Suzie Foley APRN.CNP - 07/27/2024 9:45 AM EDT Can you please call the patient and let her know that I reviewed her lab results. Labs were relatively normal however LDL cholesterol was mildly elevated at 126. Vitamin D was low at 29. I would recommend lifestyle changes at home to help improve cholesterol. Be mindful of processed foods in the diet, increase lean protein, vegetables, get some form of exercise. Recommend taking vitamin D 2000 to 4000 IUs daily. Preop forms have been completed and faxed to surgeon's office. Please let me know if she has any questions. Thank you. Suzie Foley APRN.CNP [facility]10-10-2024 Instructions* Patient Instructions* Suzie Foley APRN.CNP - 07/20/2024 1:25 PM EDT Get fasting labs completed, no food 10-12 hours prior. May have black coffee and water May start Meloxicam 15 mg daily, take with food. (Arthritis Pain) May use as needed. May wait to start until after surgery. Keep scheduled surgery date Complete Mammogram, may message the office with fax number to fax order to . Once labs are reviewed surgical forms will be faxed. Follow up for medicare wellness in 6 months or sooner pending test results. Labs open: Wednesday-Wednesday, 7:00am-5:00 pm, Wednesday 7:00am-12:00pm documented in this encounterVeterans Health Administration10-10-2024 History of Present illness Narrative* Suzie Foley APRN.CNP - 07/20/2024 1:00 PM EDT This is a 68 year old female who presents today with: Patient presents with: Pre-Op Exam HISTORY OF PRESENT ILLNESS: Muriel Corona is a 68 year old female. Patient presents with: Pre-Op Exam Here in the office for preop exam. Will be having blepharoplasty on bilateral eyes with Dr. Morse On 08/18/2024. Center for surgery in [place]. Some difficulty with peripheral vision due toeyelids. Using progressive glasses as needed. No eye pain. Not currently taking any prescription medication. History of Breast Cancer, following with oncology, refers that oncology released her due to stable mammograms. 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 Following with [facility], Dr. Golden. Vaccines: Denies wanting any vaccines at this time. PAST MEDICAL HISTORY: PAST MEDICAL HISTORY Diagnosis Date Malignant neoplasm of breast (female), unspecified site PAST SURGICAL HISTORY Procedure Laterality Date DELIVERY ONLY 04-20-93 , low cervical COLONOSCOPY FLX DX W/COLLJ SPEC WHEN PFRMD 08/16/09 Normal COLONOSCOPY FLX DX W/COLLJ SPEC WHEN PFRMD 12/18/2019 patient felt like she got too much sedation LUMPECTOMY/RADIOTHERAPY DIAG MAMM/A10 10-25-07 right MAST MODF RAD W/AX LYMPH NOD W/WO PECT/SEAN MIN 03-07-08 right, with SAEED PAST SURGICAL HISTORY OF 07/19 incision revision abd ALLERGIES Patient has no known allergies. MEDICATIONS Current Outpatient Medications Medication Sig CALCIUM CARBONATE/VITAMIN D3 (VITAMIN D-3 ORAL) Take by mouth. Taking 5000 IU daily multivitamin (DAILY MULTIPLE) ORAL Tab Take one(1) tablet daily. No current facility-administered medications for this visit. FAMILY HISTORY Problem Relation Age of Onset Allergies Mother Allergies Brother Colon Cancer Paternal Grandmother Cancer Paternal Grandfather Social History Tobacco Use Smoking status: Former Current packs/day: 0.00 Types: Cigarettes Quit date: 02/12/1991 Years since quittin.4 Smokeless tobacco: Never Substance Use Topics Alcohol use: Yes Alcohol/week: 3.0 standard drinks of alcohol Types: 3 Glasses of Wine (5oz) per week Comment: SOCIALLY Drug use: No REVIEW OF SYSTEMS GENERAL: No weight loss, malaise or fevers/chills HEENT: + Difficulty with peripheral vision NECK: Negative for lumps, goiter, pain and significant neck swelling RESPIRATORY: Negative for cough, hemoptysis, wheezing, dyspnea or shortness of breath CARDIOVASCULAR: Negative for chest pain, leg swelling, orthopnea, or palpitations GI: No nausea, vomiting, or diarrhea/constipation. No hematochezia/melena. No heartburn or reflux symptoms. : No history of dysuria, frequency or incontinence MUSCULOSKELETAL: Negative for joint pain or swelling. SKIN: Negative for lesions, rash, and itching ENDOCRINE: Negative for cold or heat intolerance, polyuria, polydipsia and goiter NEURO: No history of headaches, syncope, paralysis, seizures or tremors MOOD: Negative for depression, anxiety, or suicidal ideation. EXAM: BP 116/74 Pulse 81 Resp 16 Wt 64.6 kg (142 lb 6.7 oz) LMP 06/11/2006 SpO2 98% BMI 26.05kg/m PHYSICAL EXAM: General Appearance: Well appearing, alert, in no acute distress, well-hydrated, well nourished. Skin: Skin color, texture, turgor normal, no suspicious rashes or lesions. Head: Normocephalic, no masses, lesions, tenderness or abnormalities. Eyes: Anicteric sclera. Pupils are equally round and reactive to light. Extraocular movements are intact. Lungs: Lungs clear to auscultation. No wheezing, rhonchi, rales. Heart: RRR without murmur, gallop, or rubs. No ectopy. Extremities: No deformities, edema, skin discoloration, clubbing or cyanosis. Good capillary refill. Peripheral Pulses: Normal, Capillary refill <2secs, strong peripheral pulses, Pulses palpable. Neurologic: Gait normal. Sensation grossly intact. ASSESSMENT/PLAN: 1. Preoperative clearance - ICD9: V72.84, ICD10: Z01.818 (primary diagnosis) - Get labs completed. - Tentatively cleared for surgery, once lab results are reviewed, preop forms will be completed andfaxed back to Dr. Morse's office. - COMPLETE BLOOD COUNT AND DIFFERENTIAL - COMPREHENSIVE METABOLIC PANEL 2. Excess skin of upper eyelids of both eyes - ICD9: 374.34, ICD10: H02.31, H02.34 - Keep scheduled surgery date. 3. Vitamin D deficiency - ICD9: 268.9, ICD10: E55.9 - VITAMIN D 25 HYDROXY 4. Elevated LDL cholesterol level - ICD9: 272.0, ICD10: E78.00 - LIPID PANEL BASIC 5. Malignant neoplasm of right female breast, unspecified estrogen receptor status, unspecified site of breast (HCC) - ICD9: 174.9, ICD10: C50.911 - CAIT SCREENING W AVTAR 6. Arthritis of right foot - ICD9: 716.97, ICD10: M19.071 - Start Meloxicam 15 mg daily. - MELOXICAM 15 MG TABLET Follow-up 6 months or sooner pending test results. Discussed treatment plan and patient voices understanding. Patient's questions answered appropriately. Medications and potential side effects were discussed and patient voices understanding. Suzie Foley APRN.JOVAN This note was partially generated using BFKW voice recognition system. Note was reviewed for accuracy. There may be minor misspellings or grammar miscues with BFKW voice recognition. documented in this encounterVeterans Health Administration10-10-2024 NoteHNO ID: [id number] Author: SUZIE FOLEY APRN.CAMP TENDER Service: ? Author Type: Nurse Practitioner Type: Progress Notes Filed: 07/20/2024 18:21 Note Text: This is a 68 year old female who presents today with: Patient presents with: Pre-Op Exam HISTORY OF PRESENT ILLNESS: Muriel Corona is a 68 year old female. Patient presents with: Pre-Op Exam Here in the office for preop exam. Will be having blepharoplasty on bilateral eyes with Dr. Morse On 08/18/2024. [facility] [place]. Some difficulty with peripheral vision due to eyelids. Using progressive glasses as needed. No eye pain. Not currently taking any prescription medication. History of Breast Cancer, following with oncology, refers that oncology released her due to stable mammograms. 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 Following with [facility], Dr. Golden. Vaccines: Denies wanting any vaccines at this time. PAST MEDICAL HISTORY: PAST MEDICAL HISTORY Diagnosis Date Malignant neoplasm of breast (female), unspecified site PAST SURGICAL HISTORY Procedure Laterality Date DELIVERY ONLY 04-20-93 , low cervical COLONOSCOPY FLX DX W/COLLJ SPEC WHEN PFRMD 08/16/09 Normal COLONOSCOPY FLX DX W/COLLJ SPEC WHEN PFRMD 12/18/2019 patient felt like she got too much sedation LUMPECTOMY/RADIOTHERAPY DIAG MAMM/A10 10-25-07 right MAST MODF RAD W/AX LYMPH NOD W/WO PECT/SAEN MIN 03-07-08 right, with SAEED PAST SURGICAL HISTORY OF 07/19 incision revision abd ALLERGIES Patient has no known allergies. MEDICATIONS Current Outpatient Medications Medication Sig CALCIUM CARBONATE/VITAMIN D3 (VITAMIN D-3 ORAL) Take by mouth. Taking 5000 IU daily multivitamin (DAILY MULTIPLE) ORAL Tab Take one(1) tablet daily. No current facility-administered medications for this visit. FAMILY HISTORY Problem Relation Age of Onset Allergies Mother Allergies Brother Colon Cancer Paternal Grandmother Cancer Paternal Grandfather Social History Tobacco Use Smoking status: Former Current packs/day: 0.00 Types: Cigarettes Quit date: 02/12/1991 Years since quittin.4 Smokeless tobacco: Never Substance Use Topics Alcohol use: Yes Alcohol/week: 3.0 standard drinks of alcohol Types: 3 Glasses of Wine (5oz) per week Comment: SOCIALLY Drug use: No REVIEW OF SYSTEMS GENERAL: No weight loss, malaise or fevers/chills HEENT: + Difficulty with peripheral vision NECK: Negative for lumps, goiter, pain and significant neck swelling RESPIRATORY: Negative for cough, hemoptysis, wheezing, dyspnea or shortness of breath CARDIOVASCULAR: Negative for chest pain, leg swelling, orthopnea, or palpitations GI: No nausea, vomiting, or diarrhea/constipation. No hematochezia/melena. No heartburn or reflux symptoms. : No history of dysuria, frequency or incontinence MUSCULOSKELETAL: Negative for joint pain or swelling. SKIN: Negative for lesions, rash, and itching ENDOCRINE: Negative for cold or heat intolerance, polyuria, polydipsia and goiter NEURO: No history of headaches, syncope, paralysis, seizures or tremors MOOD: Negative for depression, anxiety, or suicidal ideation. EXAM: BP 116/74 Pulse 81 Resp 16 Wt 64.6 kg (142 lb 6.7 oz) LMP 06/11/2006 SpO2 98% BMI 26.05 kg/m? PHYSICAL EXAM: General Appearance: Well appearing, alert, in no acute distress, well-hydrated, well nourished. Skin: Skin color, texture, turgor normal, no suspicious rashes or lesions. Head: Normocephalic, no masses, lesions, tenderness or abnormalities. Eyes: Anicteric sclera. Pupils are equally round and reactive to light. Extraocular movements are intact. Lungs: Lungs clear to auscultation. No wheezing, rhonchi, rales. Heart: RRR without murmur, gallop, or rubs. No ectopy. Extremities: No deformities, edema, skin discoloration, clubbing or cyanosis. Good capillary refill. Peripheral Pulses: Normal, Capillary refill <2secs, strong peripheral pulses, Pulses palpable. Neurologic: Gait normal. Sensation grossly intact. ASSESSMENT/PLAN: 1. Preoperative clearance - ICD9: V72.84, ICD10: Z01.818 (primary diagnosis) - Get labs completed. - Tentatively cleared for surgery, once lab results are reviewed, preop forms will be completed and faxed back to Dr. Morse's office. - COMPLETE BLOOD COUNT AND DIFFERENTIAL - COMPREHENSIVE METABOLIC PANEL 2. Excess skin of upper eyelids of both eyes - ICD9: 374.34, ICD10: H02.31, H02.34 - Keep scheduled surgery date. 3. Vitamin D deficiency - ICD9: 268.9, ICD10: E55.9 - VITAMIN D 25 HYDROXY 4. Elevated LDL cholesterol level - ICD9: 272.0, ICD10: E78.00 - LIPID PANEL BASIC 5. Malignant neoplasm of right female breast, unspecified estrogen receptor status, unspecified site of breast (HCC) - ICD9: 174.9, ICD10: C50.911 - CAIT SCREENING W AVTAR 6. Arthritis of right foot - ICD9: 716.97, ICD10: M19.071 - Start Meloxicam 15 mg da (more content not included)...[facility]10-04-2024 Telephone encounter Note* Telephone Encounter - Evangelina Osuna MA - 07/14/2024 4:12 PM EDT Pt has appt on 07/20/24 with Suzie Foley CNP. Will route forms to her office to complete. Evangelina Osuna MA [facility]10-04-[facility]24 Miscellaneous Notes* Telephone Encounter - Evangelina Osuna MA - 07/14/2024 4:12 PM EDT Pt has appt on 07/20/24 with Suzie Foley CNP. Will route forms to her office to complete. Evangelina Osuna MA * Telephone Encounter - Jessica Persaud MD - 07/14/2024 4:02 PM EDT Needs appt for pre-op Jessica Persaud MD * Telephone Encounter - Evangelina Osuna MA - 07/14/2024 11:06 AM EDT Type of form: [facility] Clear[facility] [place]. Pt scheduled to haveBlepharoplasty b/l on 08/18/24 Form received via fax When form is completed, Fax form to [phone] Form has been forwarded to Physician Desk: Dr. Persaud. Pt has not been seen in this office since 2020. She was seen last year in August by Suzie Foley CNP for a tick bite. Evangelina Osuna MA documented in this encounterVeterans Health Administration10-04-2024 Telephone encounter Note * Telephone Encounter - Jessica Persaud MD - 07/14/2024 4:02 PM EDT Needs appt for pre-op Jessica Persaud MD [facility]10-04-[facility] Telephone encounter Note* Telephone Encounter - Evangelina Osuna MA - 07/14/2024 11:06 AM EDT Type of form: Medical Clearance from [facility] [place]. Pt scheduled to haveBlepharoplasty b/l on 08/18/24 Form received via fax When form is completed, Fax form to [phone] Form has been forwarded to Physician Desk: Dr. Persaud. Pt has not been seen in this office since 2020. She was seen last year in August by Suzie Foley CNP for a tick bite. Evangelina Osuna MA [facility]09-18-2024 NoteHNO ID: [id number] Author: RUSH ARNOLD APRN.JOVAN Service: ? Author Type: Nurse Practitioner Type: Progress Notes Filed: 06/28/2024 09:38 Note Text: We can order mammogram at her wellness visit Rush Arnold APRN.[facility]OVAN[facility]09-18-2024 NoteHNO ID: [id number] Author: MANA GILBERT MA Service: ? Author Type: Staff Sonographer Type: Progress Notes Filed: 06/28/2024 09:05 Note Text: POPULATION HEALTH NAVIGATION OUTREACH Action/FYI Patient calls back and needs to reschedule her wellness due to conflicting with episcopal holiday. Rescheduled on 07/20/24. Reason for Outreach Returned Call/MyChart Patient Contacted: Spoke to patient/parent/or legal guardian Patient identified by name and date of : Yes Returned call/MyChart actions taken: Patient scheduled/pended orders: Medicare Annual Wellness Visit 07/20/2024 in [facility] with SUZIE FOLEY - Medicare wellness, HCC gap closure, Address HM due Navigation Signature: Mana Gilbert MA June 28, 2024 9:04 [facility]09-17-2024 Note* Addendum Note - Mana Gilbert MA - 06/27/2024 4:55 PM EDTAddended by: MANA GILBERT on: 06/27/2024 04:55 PM Modules accepted: Orders [facility]09-17-2024 Miscellaneous Notes* Addendum Note - Mana Gilbert MA - 06/27/2024 4:55 PM EDTAddended by: MANA GILBERT on: 06/27/2024 04:55 PM Modules accepted: Orders documented in this encounterVeterans Health Administration09-17-2024 NoteHNO ID: [id number] Author: MANA GILBERT MA Service: ? Author Type: Staff Sonographer Type: Progress Notes Filed: 06/27/2024 16:55 Note Text: POPULATION HEALTH NAVIGATION OUTREACH Action/FYI Patient returned call and scheduled wellness on 07/13/24 Patient gets her BREAST CANCER SCREENING done at and requested an order entered to take to . Patient will do her flu shot at pharm. Pended Orders ID Status Description Pended By When Reason [id number] Pended CAIT SCREENING W AVTARMana Amaya MA 06/27/24 1652 Reason for Outreach Returned Call/MyChart Patient Contacted: Spoke to patient/parent/or legal guardian Patient identified by name and date of : Yes Returned call/MyChart actions taken: Patient scheduled/pended orders: Medicare Annual Wellness Visit Breast Cancer Screening 07/13/2024 in [facility] with JESSICA PERSAUD - Medicare wellness, HCC gap closure, Address HM due Navigation Signature: Mana Gilbert MA June 27, 2024 4:52 [facility]09-17-2024 History of Present illness Narrative* Mana Gilbert MA - 06/27/2024 4:52 PM EDT POPULATION HEALTH NAVIGATION OUTREACH Action/FYI Patient returned call and scheduled wellness on 07/13/24 Patient gets her BREAST CANCER SCREENING done at and requested an order entered to take to . Patient will do her flu shot at [facility]. Pended Orders ID Status Description Pended By When Reason [id number] Pended CAIT SCREENING W AVTAR Mana Gilbert MA 06/27/24 1651 Reason for Outreach Returned Call/MyChart Patient Contacted: Spoke to patient/parent/or legal guardian Patient identified by name and date of : Yes Returned call/MyChart actions taken: Patient scheduled/pended orders: Medicare Annual Wellness Visit Breast Cancer Screening 07/13/2024 in [facility] with JESSICA PERSAUD - Medicare wellness, HCC gap closure, Address HMdue Navigation Signature: Mana Gilbert MA June 27, 2024 4:52 PM * Mana Gilbert MA - 06/27/2024 4:12 PM EDT POPULATION HEALTH NAVIGATION OUTREACH Action/FYI Called and left a message to call [phone], to discuss health maintenance items that are due. Sent My Chart message. PCP appt: Wellness due for 2023 HM due: HCC gaps BREAST CANCER SCREENING Flu Reason for Outreach Care Gap/HCC or Scheduling Wellness Visits Care Gaps due: Medicare Annual Wellness Visit Breast Cancer Screening Flu Vaccine Patient Contacted: Unable or unnecessary to reach patient: Left message MyChart message sent HCC related Navigation Signature: Mana Gilbert MA June 27, 2024 4:14 PM documented in this encounterVeterans Health Administration09-17-2024 NoteHNO ID: [id number] Author: MANA GILBERT MA Service: ? Author Type: Staff Sonographer Type: Progress Notes Filed: 06/27/2024 16:15 Note Text: POPULATION HEALTH NAVIGATION OUTREACH Action/FYI Called and left a message to call [phone], to discuss health maintenance items that are due. Sent My Chart message. PCP appt: Wellness due for 2023 HM due: HCC gaps BREAST CANCER SCREENING Flu Reason for Outreach Care Gap/HCC or Scheduling Wellness Visits Care Gaps due: Medicare Annual Wellness Visit Breast Cancer Screening Flu Vaccine Patient Contacted: Unable or unnecessary to reach patient: Left message [place] message sent HCC related Navigation Signature: Mana Gilbert MA June 27, 2024 4:14 [facility]09-17-2024 NotePatient Outreach (NETNAV) MURIEL CABRERA ([id number]) 1955 F Date Time Provider Department 06/27/24 MANA GILBERT During your visit today, we recorded the following information about you: Mana Gilbert MA 06/27/2024 4:15 PM Signed POPULATION HEALTH NAVIGATION OUTREACH Action/FYI Called and left a message to call [phone], to discuss health maintenance items that are due. Sent My Chart message. PCP appt: Wellness due for 2023 HM due: HCC gaps BREAST CANCER SCREENING Flu Reason for Outreach Care Gap/HCC or Scheduling Wellness Visits Care Gaps due: Medicare Annual Wellness Visit Breast Cancer Screening Flu Vaccine Patient Contacted: Unable or unnecessary to reach patient: Left message [employer] message sent HCC related Navigation Signature: Mana Gilbert MA June 27, 2024 4:14 PM Mana Gilbert MA 06/27/2024 4:55 PM Addendum POPULATION HEALTH NAVIGATION OUTREACH Action/FYI Patient returned call and scheduled wellness on 07/13/24 Patient gets her BREAST CANCER SCREENING done at and requested an order entered to take to . Patient will do her flu shot at [facility]. Pended Orders ID Status Description Pended By When Reason [id number] Pended CAIT SCREENING W AVTAR Mana Gilbert MA 06/27/24 1651 Reason for Outreach Returned Call/MyChart Patient Contacted: Spoke to patient/parent/or legal guardian Patient identified by name and date of : Yes Returned call/MyChart actions taken: Patient scheduled/pended orders: Medicare Annual Wellness Visit Breast Cancer Screening 07/13/2024 in [facility] with JESSICA PERSAUD - Medicare wellness, HCC gap closure, Address HM due Navigation Signature: Mana Gilbert MA June 27, 2024 4:52 PM Mana Gilbert MA 06/27/2024 4:55 PM Signed Addended by: MANA GILBERT on: 06/27/2024 04:55 PM Modules accepted: Orders Mana Gilbert MA 06/28/2024 9:05 AM Signed POPULATION HEALTH NAVIGATION OUTREACH Action/FYI Patient calls back and needs to reschedule her wellness due to conflicting with episcopal holiday. Rescheduled on 07/20/24. Reason for Outreach Returned Call/MyChart Patient Contacted: Spoke to patient/parent/or legal guardian Patient identified by name and date of : Yes Returned call/MyChart actions taken: Patient scheduled/pended orders: Medicare Annual Wellness Visit 07/20/2024 in [facility] with SUZIE FOLEY - Medicare wellness, HCC gap closure, Address HM due Navigation Signature: Mana Gilbert MA June 28, 2024 9:04 AM Rush Arnold APRN.CNP 06/28/2024 9:38 AM Signed We can order mammogram at her wellness visit Rush Arnold APRN.CNP Allergies As of Date: 06/27/2024 (No Known Allergies) Date Reviewed: 08/17/2023 Reviewed by: Suzie Foley APRN.CAMP TENDER - Fully Assessed Reason for Visit: Population Health Navigation Outreach [3910] Cmt: C, AWV, Care gaps, HCC, Jonnie PCSA Visit Diagnosis:Encounter for screening mammogram for breast cancer [Z12.31] Prescriptions as of 06/28/2024 - CALCIUM CARBONATE/VITAMIN D3 (VITAMIN D-3 ORAL) Take by mouth. Taking 5000 IU daily - multivitamin (DAILY MULTIPLE) ORAL Tab Take one(1) tablet daily. Problem List As Of Date 06/27/2024 Noted Resolved Colon Cancer Screening [Z12.11] 08/13/2009 Malignant neoplasm of female breast (HCC) [C50.* Encounter Status:Closed by MANA GILBERT on 06/27/24[facility] 08-16-2023 Instructions* Patient Instructions* Suzie Foley APRN.CNP - 08/16/2023 3:23 PM EST Start Doxycyline, take twice daily with food. Keep skin clean and dry. Contact the office with worsening symptoms. Get fasting labs completed in 1 month prior to annual visit. documented in this encounterVeterans Health Administration11-06-2023 History of Present illness Narrative* Suzie Foley APRN.CNP - 08/16/2023 3:00 PM EST This is a 67 year old female who presents today with: Patient presents with: tick bite HISTORY OF PRESENT ILLNESS: Muriel Corona is a 67 year old female. Patient presents with: tick bite Tick bite, pulled tick off today, refers that she believe it was in place since Wednesday or Wednesday.Wal[place] in the [place] daily with dog. Refers that bite is irritated. PAST MEDICAL HISTORY: PAST MEDICAL HISTORY Diagnosis Date Malignant neoplasm of breast (female), unspecified site PAST SURGICAL HISTORY Procedure Laterality Date DELIVERY ONLY 04-20-93 , low cervical [facility] Normal [facility] 12/18/2019 patient felt like she got too much sedation LUMPECTOMY/RADIOTHERAPY DIAG MAMM/A10 10-25-07 right MASTECTOMY, MODIFIED RADICAL 03-07-08 right, with SAEED PAST SURGICAL HISTORY OF 07/19 incision revision abd ALLERGIES Patient has no known allergies. MEDICATIONS Current Outpatient Medications Medication Sig CALCIUM CARBONATE/VITAMIN D3 (VITAMIN D-3 ORAL) Take by mouth. Taking 5000 IU daily multivitamin (DAILY MULTIPLE) ORAL Tab Take one(1) tablet daily. No current facility-administered medications for this visit. FAMILY HISTORY Problem Relation Age of Onset Allergies Mother Allergies Brother Colon Cancer Paternal Grandmother Cancer Paternal Grandfather Social History Tobacco Use Smoking status: Former Types: Cigarettes Quit date: 02/12/1991 Years since quittin.5 Smokeless tobacco: Never Substance Use Topics Alcohol use: Yes Alcohol/week: 7.5 standard drinks of alcohol Types: 3 Glasses of Wine (5oz) per week Comment: SOCIALLY Drug use: No REVIEW OF SYSTEMS GENERAL: No weight loss, malaise or fevers/chills HEENT: Negative for frequent or significant headaches, No changes in hearing or vision. NECK: Negative for lumps, goiter, pain and significant neck swelling RESPIRATORY: Negative for cough, hemoptysis, wheezing, dyspnea or shortness of breath CARDIOVASCULAR: Negative for chest pain, leg swelling, orthopnea, or palpitations GI: No nausea, vomiting, or diarrhea/constipation. No hematochezia/melena. No heartburn or reflux symptoms. : No history of dysuria, frequency or incontinence MUSCULOSKELETAL: Negative for joint pain or swelling. SKIN: + Tick bite ENDOCRINE: Negative for cold or heat intolerance, polyuria, polydipsia and goiter NEURO: No history of headaches, syncope, paralysis, seizures or tremors MOOD: Negative for depression, anxiety, or suicidal ideation. EXAM: BP 128/80 Pulse 80 Resp 16 Wt 66.2 kg (146 lb) LMP 06/11/2006 BMI 26.70 kg/m PHYSICAL EXAM: General Appearance: Well appearing, alert, in no acute distress, well-hydrated, well nourished. Skin: Circular bite noted to the posterior left hip, erythematic and swollen, tick head still embedded. Area was cleaned with alcohol and using a 25g needle, removed the head without difficulty. Head: Normocephalic, no masses, lesions, tenderness or abnormalities. Eyes: Anicteric sclera. Pupils are equally round and reactive to light. Extraocular movements are intact. Extremities: No deformities, edema, skin discoloration, clubbing or cyanosis. Good capillary refill. Musculoskeletal: No joint swelling, deformity, or tenderness. Peripheral Pulses: Normal, Capillary refill <2secs, strong peripheral pulses, Pulses palpable. Neurologic: Gait normal. Reflexes normal and symmetric. Sensation grossly intact. ASSESSMENT/PLAN: 1. Tick bite of back, initial encounter - ICD9: 911.4, E906.4, ICD10: S30.860A, W57.XXXA (primary diagnosis) - Will treat with doxycycline for 10 days due erythema and skin irritation. - Get labs completed in 4-6 weeks. - DOXYCYCLINE HYCLATE 100 MG TABLET - LYME AB LATE >30 DAYS SYMPTOMS - COMP METABOLIC PANEL - CBC + DIFF 2. Hyperlipidemia, unspecified hyperlipidemia type - ICD9: 272.4, ICD10: E78.5 - Control undetermined, due for labs - Counseled on healthy diet and regular exercise - LIPID PANEL BASIC 3. Vitamin D deficiency - ICD9: 268.9, ICD10: E55.9 - VITAMIN D 25 HYDROXY Follow up as scheduled. Discussed treatment plan and patient voices understanding. Patient's questions answered appropriately. Medications and potential side effects were discussed and patient voices understanding. Suzie Foley APRN.CAMP TENDER This note was partially generated using BFKW voice recognition system. Note was reviewed for accuracy. There may be minor misspellings or grammar miscues with BFKW voice recognition. documented in this encounterVeterans Health Administration11-18-2022 Miscellaneous Notes* Telephone Encounter - Emperatriz Meehan Pss - 08/28/2022 4:27 PM EST Patient calling for results from bone density from December. documented in this encounterVeterans Health Administration03-23-2022 History of Present illness Narrative* Gaurav Coreas, RT(R) - 12/31/2021 2:30 PM EDT Radiology Service Progress Note PATIENT NAME: Muriel Corona DATE OF SERVICE: December 31, 2021 TIME: 2:31 PM PATIENT IDENTITY VERIFICATION COMPLETED USING TWO (2) IDENTIFIERS: Name and Date of confirmedby patient verbally. FALL SCREENING: Has the patient had 2 falls in the last year or 1 fall with injury or currently using an Ambulatory Assistive Device (Walker, Cane, Wheelchair, Crutches, etc.)? No PATIENT GENDER DATA: Female. status: : No status: NO. PATIENT RELEVANT IMPLANT DATA REVIEWED: Not Applicable RADIOLOGY DEPARTMENT: Bone Density PERIPHERAL IV DATA: Not applicable SIGNED BY: RT Fish(R) December 31, 2021 2:31 PM [facility]* Diagnosis Vitamin D deficiency Unspecified vitamin D deficiency Asymptomatic postmenopausal status documented in this encounter [facility] noteNo assessment information availableWSelect Medical [facility] Work Phone: Evaluation note* Diagnosis Tick bite of back, initial encounter- Primary Hyperlipidemia, unspecified hyperlipidemia type Vitamin D deficiency Unspecified vitamin D deficiency documented [facility] encounter [facility]* Diagnosis Encounter for screening mammogram for breast cancer documented in this encounter [facility] note* Diagnosis Preoperative clearance- Primary Preoperative examination, unspecified Excess skin of upper eyelids of both eyes Vitamin D deficiency Unspecified vitamin D deficiency Elevated LDL cholesterol level Pure hypercholesterolemia Malignant neoplasm of right female breast, unspecified estrogen receptor status, unspecified site of breast (HCC) Arthritis of right foot Unspecified arthropathy, ankle and foot documented in this encounter [facility] note* Diagnosis Psoriasis- Primary Other psoriasis documented in this encounter [facility] note* Diagnosis Malignant neoplasm of unspecified site of right female breast Encounter for screening mammogram for malignant neoplasm of breast documented in this encounter [facility] Work Phone: Evaluation note* Diagnosis Abnormality of left breast on screening mammogram History of right breast cancer documented in this encounter [facility] Work Phone: Evaluation note* Diagnosis Abnormality of left breast on screening mammogram- Primary documented in this encounter [facility] Work Phone: Evaluation note* Diagnosis Breast calcifications documented in this encounter [facility] Work Phone: Evaluation note* Diagnosis Other abnormal and inconclusive findings on diagnostic imaging of breast documented in this encounter [facility] Work Phone: Evaluation note* Diagnosis 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- Primary Ductal carcinoma in situ of left breast documented in this encounter [facility] Work Phone: Evaluation note* Diagnosis Herpes- Primary Herpes simplex without mention of complication [facility] Ductal carcinoma in situ of left breast- Primary 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 documented in this encounter [facility] Work Phone: Evaluation note* Diagnosis Ductal carcinoma in situ of left breast- Primary documented in this encounter [facility] Work Phone: Evaluation note* Diagnosis Ductal carcinoma in situ of left breast documented in this encounter [facility] Work Phone: Evaluation note* Diagnosis Ductal carcinoma in situ of left breast documented in this encounter [facility] Work Phone: Evaluation note* Diagnosis Bug bite, initial encounter- Primary Cellulitis of skin Cellulitis and abscess of unspecified site documented in this encounter [facility] Discharge instructions Additional Instructions 1. Contact your provider for stitches to be removed in 10 days and have your blood pressure rechecked. 2. Keep the wound clean and dry for the next 48 to 72 hours. 3. Return if there is any evidence of infection or you are experiencing severe pain.[facility] Work Phone: Reason for referral (narrative)* Diagnostic Procedure Only (Routine) - New Request Specialty Diagnoses / Procedures Referred By All t Referred To Contact [facility] IMAGING Diagnoses Malignant neoplasm of right female breast, unspecified estrogen receptor status, unspecified site of breast (HCC) Procedures CAIT SCREENING W AVTAR SCREENING DIGITAL BREAST TOMOSYNTHESIS BI SCREENING MAMMOGRAPHY BI 2-VIEW BREAST INC Suzie Leigh APRN.CAMP TENDER [address] [place] [address] [facility] [address] [place] [address] Referral ID Status Reason Start Date Expiration Date Visits Requested Visits Authorized [id number] New Request Auto-Generat ed Referral 4 08/19/2025 1 1 [facility] for referral (narrative)No reason for referral information availableWSelect [facility] Work Phone: Reason for visit Narrative* Diagnostic Procedure Only (Routine) - Closed Specialty Diagnoses / Procedures Referred By All gayle Referred To Contact Radiology / RADIO BONE DENSITY [facility] Diagnoses Vitamin D deficiency [E55.9] Asymptomatic postmenopausal status [Z78.0] Procedures BONE DENSITY ADULT 225 Jessica Persaud MD [address] [place] [address] Radio Bone Density [facility] [address] [place] [address] Referral ID Status Reason Start Date Expiration Date V isits Requested Visits Authorized [id number] Closed Patient Cleared INN/SMCP Payor Auth Obtained 12/31/2021 10/10/2022 1 1 [facility] for visit Narrative* Imaging (Routine) - Pending Review Specialty Diagnoses / Procedures Referred By All gayle Referred To Contact Radiology Diagnoses Encounter for screening mammogram for malignant neoplasm of breast Procedures BI mammo left screening tomosynthesis BI mammo bilateral screening tomosynthesis Suzie Foley APRN-CNP [address] [place] [address] Phone: tel: fax: Referral ID Status Reason Start Date Expiration Date Visits Requested Visits Authorized [id number] Pending Review Perform Procedure 11/03/2024 11/03/2025 1 1 [facility] Work Phone: Reason for visit Narrative* Imaging (Routine) - Pending Review Specialty Diagnoses / Procedures Referred By All gayle Referred To Contact Radiology Diagnoses Abnormality of left breast on screening mammogram Procedures BI mammo left diagnostic BI mammo left diagnostic tomosynthesis Franco Loya APRN-CAMP TENDER [address] [place] [address] Phone: tel: fax: Referral ID Status Reason Start Date Expiration Date Visits Requested Visits Authorized [id number] Pending Review Perform Procedure 11/14/2024 11/14/2025 1 1 [facility] Work Phone: reason for visit Narrative* Imaging (Routine) - Pending Review Specialty Diagnoses / Procedures Referred By Contestrella t Referred To Contact Radiology Diagnoses Abnormality of left breast on screening mammogram Procedures imaging procedure not performed BI stereotactic guided breast left localization and biopsy [facility] [address] [place] [phone] Phone: tel: fax: Referral ID Status Reason Start Date Expiration Date Visits Requested Visits Authorized [id number] Pending Review Perform Procedure 11/14/2024 11/14/2025 1 1 [facility] Work Phone: reason for visit Narrative* Imaging (Routine) - Pending Review Specialty Diagnoses / Procedures Referred By All t Referred To Contact Radiology Diagnoses Breast calcifications Procedures BI stereotactic guided breast left localization and biopsy BI breast biopsy generic [facility] [address] [place] [phone] Phone: tel: fax: Referral ID Status Reason Start Date Expiration Date Visits Requested Visits Authorized [id number] Pending Review Perform Procedure 11/14/2024 11/14/2025 1 1 [facility] Work Phone: reason for visit Narrative* Imaging (Routine) - Authorized Specialty Diagnoses / Procedures Referred By Contac t Referred To Contact Radiology Diagnoses Other abnormal and inconclusive findings on diagnostic imaging of breast Procedures BI breast biopsy clip imaging Franco Loya [facility] [address] [place] [phone] Phone: tel: fax: Referral ID Status Reason Start Date Expiration Date Visits Requested Visits Authorized [id number] Authorized Perform Procedure 11/14/2024 11/14/2025 1 1 [facility] Work Phone: Reason for visit Narrative* Imaging (Routine) - Authorized Specialty Diagnoses / Procedures Referred By Contac t Referred To Contact Radiology Diagnoses Ductal carcinoma in situ of left breast Procedures BI breast biopsy clip imaging Suzie Briggs, [place] [id number] [place] [address] Phone: tel: fax: Referral ID Status Reason Start Date Expiration Date Visits Requested Visits Authorized [id number] Authorized Perform Procedure 11/30/2024 11/30/2025 1 1 [facility] Work Phone: Reason for visit Narrative* Imaging (Routine) - Authorized Specialty Diagnoses / Procedures Referred By Contac t Referred To Contact Radiology Diagnoses Ductal carcinoma in situ of left breast Procedures BI mammo guided breast left localization Suzie Briggs, DO [address] [place], [place] [id number] Phone: tel: fax: Referral ID Status Reason Start Date Expiration Date Visits Requested Visits Authorized [id number] Authorized Perform Procedure 12/01/2024 12/01/2025 1 1 [facility] Work Phone: Reason for visit Narrative* Auth/Cert Specialty Diagnoses / Procedures Referred By Contac t Referred To Contact Diagnoses 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 [D05.12] Procedures AK MASTECTOMY PARTIAL LEFT MAG SEED LOCALIZED PARTIAL MASTECTOMY Suzie Briggs, DO [address] [place] [address] Phone: tel: fax: [facility] [place] [address] [place] [phone] fax: Referral ID Status Reason Start Date Expiration Date Visits Re quested Visits Authorized [id number] 1 1 [facility] Work Phone: Advance Directives Documents on File Type Date Recorded Patient Strings Teacher Expl anation Advance Directive(s) 12/18/2019 9:36 AM Advance Directive(s) 11/27/2019 2:00 PM Advance Directive Response Recorded Date/ Time Do you have a 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 March 20, 2025 4:07pm Summary Purpose Family History No Family History Records FoundNo Family History Records FoundNo Family History Records FoundNo Family History Records FoundNo Family History Records Found Chief Complaint and Reason for Visit Chief Complaint Admit Date trauma March 20, 2025 1:22 pm Additional Source Comments Source Comments (unrecognize d section and content) In the event this informatio n is protected by the Federal Confidentiality of Alcohol and Drug Abuse Patient Records regulations: The Federal rules restrict any use of the information to criminally investigate or prosecute any alcohol or drug abuse patient.[facility] AdministrationIn the event this information is protected by the Federal Confidentiality of Alcohol and Drug Abuse Patient Records regulations: The Federal rules restrict any use of the information to criminally investigate or prosecute any alcohol or drug abuse patient.[facility] AdministrationIn the event this information is protected by the Federal Confidentiality of Alcohol and Drug Abuse Patient Records regulations: The Federal rules restrict any use of the information to criminally investigate or prosecute any alcohol or drug abuse patient.[facility] AdministrationIn the event this information is protected by the Federal Confidentiality of Alcohol and Drug Abuse Patient Records regulations: The Federal rules restrict any use of the information to criminally investigate or prosecute any alcohol or drug abuse patient.[facility] AdministrationIn the event this information is protected by the Federal Confidentiality of Alcohol and Drug Abuse Patient Records regulations: The Federal rules restrict any use of the information to criminally investigate or prosecute any alcohol or drug abuse patient.[facility] AdministrationIn the event this information is protected by the Federal Confidentiality of Alcohol and Drug Abuse Patient Records regulations: The Federal rules restrict any use of the information to criminally investigate or prosecute any alcohol or drug abuse patient.[facility] AdministrationIn the event this information is protected by the Federal Confidentiality of Alcohol and Drug Abuse Patient Records regulations: The Federal rules restrict any use of the information to criminally investigate or prosecute any alcohol or drug abuse patient.[facility] AdministrationIn the event this information is protected by the Federal Confidentiality of Alcohol and Drug Abuse Patient Records regulations: The Federal rules restrict any use of the information to criminally investigate or prosecute any alcohol or drug abuse patient.[facility] AdministrationIn the event this information is protected by the Federal Confidentiality of Alcohol and Drug Abuse Patient Records regulations: The Federal rules restrict any use of the information to criminally investigate or prosecute any alcohol or drug abuse patient.[facility] AdministrationIn the event this information is protected by the Federal Confidentiality of Alcohol and Drug Abuse Patient Records regulations: The Federal rules restrict any use of the information to criminally investigate or prosecute any alcohol or drug abuse patient.[facility] AdministrationIn the event this information is protected by the Federal Confidentiality of Alcohol and Drug Abuse Patient Records regulations: The Federal rules restrict any use of the information to criminally investigate or prosecute any alcohol or drug abuse patient.[facility] AdministrationIn the event this information is protected by the Federal Confidentiality of Alcohol and Drug Abuse Patient Records regulations: The Federal rules restrict any use of the information to criminally investigate or prosecute any alcohol or drug abuse patient.[facility] Care Teams (unrecognized sec tion and content) Residential Supervisor Relationship Specialty Start Date End Date Jessica Persaud MD [address] [place] [address] PCP - General Family Practice 08/02/21 Residential Supervisor Relationship Specialty Start Date End Date Jessica Persaud MD [address] [place] [address] PCP - General Family Medicine 08/02/21 Team Status: Active Member Role Status Dates Dr. Brianna Manning III, MD Family Provider Active Team Status: Inactive Member Role Status Dates Dr. Elvis Marcano MD Attending Provider Active Residential Supervisor Relationship Specialty Start Date End Date Jessica Persaud MD [address] [place] [address] PCP - General Family Medicine 08/02/21 Residential Supervisor Relationship Specialty Start Date End Date Jessica Persaud MD [address] [place] [address] PCP - General Family Medicine 08/02/21 Residential Supervisor Relationship Specialty Start Date End Date Jessica Persaud MD [address] [place] [address] PCP - General Family Medicine 08/02/21 Residential Supervisor Relationship Specialty Start Date End Date Jessica Persaud MD [address] [place] [address] PCP - General Family Medicine 08/02/21 Residential Supervisor Relationship Specialty Start Date End Date Jessica Persaud MD [address] [place] [address] PCP - General Family Medicine 08/02/21 Residential Supervisor Relationship Specialty Start Date End Date Jessica Persaud MD [address] [place] [address] PCP - General Family Medicine 08/02/21 Suzie Foley, COMMERCIAL COORDINATOR.CAMP TENDER [address] [place] [address] Knock Up Assembler Family Medicine 09/17/24 Rush Arnold, MIRIAM.CAMP TENDER [address] [place] [address] Knock Up Assembler Family Medicine 09/26/24 Residential Supervisor Relationship Specialty Start Date End Date Brianna Manning MD [address] [place] [address] PCP - General 02/12/10 Residential Supervisor Relationship Specialty Start Date End Date Brianna Manning MD [address] [place] [address] PCP - General 02/12/10 Residential Supervisor Relationship Specialty Start Date End Date Jessica Persaud MD [address] [place] [address] PCP - General Family Medicine 08/02/21 Suzie Foley, MIRIAM.CAMP TENDER [address] [place] [address] Knock Up Assembler Family Medicine 09/17/24 Rush Arnold APRN.CAMP TENDER [address] [place] [address] Knock Up Assembler [facility] 09/26/24 Residential Supervisor Relationship Specialty Start Date End Date Brianna Manning MD [address] [place] [address] PCP - General 02/12/10 Residential Supervisor Relationship Specialty Start Date End Date Brianna Manning MD [address] [place] [address] PCP - General 02/12/10 Residential Supervisor Relationship Specialty Start Date End Date Brianna Manning MD [address] [place] [address] PCP - General 02/12/10 Residential Supervisor Relationship Specialty Start Date End Date Jessica Persaud MD [address] [place] [address] PCP - General Family Medicine 08/02/21 Suzie Foley, COMMERCIAL COORDINATOR.CAMP TENDER [address] [place] [address] Knock Up Assembler Family Medicine 09/17/24 Rush Arnold APRN.CAMP TENDER [address] [place] [address] Knock Up Assembler Family Medicine 09/26/24 Residential Supervisor Relationship Specialty Start Date End Date Brianna Manning MD [address] [place] [address] PCP - General 02/12/10 Residential Supervisor Relationship Specialty Start Date End Date Brianna Manning MD [address] [place] [address] PCP - General 02/12/10 Residential Supervisor Relationship Specialty Start Date End Date Brianna Manning MD [address] [place] [address] PCP - General 02/12/10 Residential Supervisor Relationship Specialty Start Date End Date Brianna Manning MD [address] [place] [address] PCP - General 02/12/10 Residential Supervisor Relationship Specialty Start Date End Date Jessica Persaud MD [address] [place] [address] PCP - General Family Medicine 08/02/21 Rush Arnold APRN.CAMP TENDER [address] [place] [address] Knock Up Assembler Family Medicine 12/17/24 Team Status: Active Member Role Status Dates Dr. Jessica Persaud MD Primary Care Provider Active Team Status: Inactive Member Role Status Dates Dr. Julián Sheldon MD Emergency Provider Active Sta rt: March 20, 2025 End: March 20, 2025 Dr. Jessica Persaud MD Primary Care Provider Active Start: March 20, 2025 End: March 20, 2025 Reason for Visit (unrecogniz ed section and content) Reason Comments Results Reason Comments tick bite Reason Onset Date Comments Population Health Navigation Outreach 06/27/2024 [facility], AWV, Care gaps, HCC, Jonnie PCSA Reason Comments Pre-Op Exam Reason Comments Results Labs/Forms Reason Onset Date Comments Population Health Navigation Outreach 09/05/2024 [facility] WORKBENCH JONNIE PCSA Reason Comments Forms Surgical Clearance. Reason Comments Results Mammogram Reason Comments New Patient Visit Breast Cancer Reason Comments Medication Request Reason Comments Post-op Reason Comments New Patient Visit Specialty Diagnoses / Procedures Referred By All t Referred To Contact Radiation Oncology Diagnoses Ductal carcinoma in situ of left breast Suzie Briggs, [address] [place] [address] Phone: tel: fax: Simin Longo MD [address] [facility], [place] [address] Phone: tel: fax: Referral ID Status Reason Start Date Expiration Date Visits Requested Visits Authorized [id number] Authorized Specialty Services Required 01/25/2025 01/25/2026 1 1 Reason Comments Trauma Possible tick bite o n left ankle x 2 days, back pain x this AM that has since resolved Goals (unrecognized section and content) Goals may be documented in a n alternate sectionGoals may be documented in an alternate section INFORMATION SOURCE (unrecogn ized section and content) DATE CREATED AUTHOR 02/17/2023 [facility] DATE CREATED AUTHOR AUTHOR'S ORGANIZ ATION 01/03/2025 [facility] DATE CREATED AUTHOR AUTHOR'S ORGANIZ ATION 01/20/2025 [facility] DATE CREATED AUTHOR AUTHOR'S ORGANIZ ATION 02/17/2025 [facility] DATE CREATED AUTHOR AUTHOR'S ORGANIZ ATION 02/25/2025 [facility] Scheduled Active and Recently Administ ered Medications (unrecognized section and content) Medication Order 01/02/2025 01/03/2025 01/04/2025 acetaminophen (Tylenol) tablet 975 mg (COMPLETED) 975 mg, oral, Once, On Teresa 01/04/25 at 1030, For 1 dose, Recovery (only), If ordered PRN for pain, nurse is permitted to administer this medication for higher pain scores based on patient preference? Yes 1058 (Given - Provid er: Verito Zaraet RN) lidocaine (Xylocaine) 10 mg/mL (1 %) injection 0.1 mL 0.1 mL, subcutaneous, Once, On Teresa 01/04/25 at 1030, For 1 dose, Recovery (only), To be used for IV insertion ONLY 1116 (Not Given - Pr ovider: Verito Zarate RN - Reason: Order parameters not met) Continuous Medication Order 01/02/2025 01/03/2025 01/04/2025 lactated Ringer's infusion 100 mL/hr, intravenous, Continuous, Starting on Teresa 01/04/25 at 1030, For 1 day, Recovery (only) 1030 (Continued from OR - Provider: Verito Zarate RN) PRN Medication Order 01/02/2025 01/03/2025 01/04/2025 albuterol 2.5 mg /3 mL (0.083 %) nebulizer solution 2.5 mg 2.5 mg, nebulization, Once as needed, wheezing, Starting on Teresa 01/04/25 at 1008, For 1 dose, Recovery (only) BUPivacaine HCl (Marcaine) 0.25 % (2.5 mg/mL) injection (CANCELED) As needed, Starting on Teresa 01/04/25 at 0958, Intraprocedure 0958 (Given - Provid er: Suzie Briggs DO) diphenhydrAMINE (BENADryl) injection 12.5 mg 12.5 mg, intravenous, Once as needed, itching, allergic reaction, Starting on Teresa 01/04/25 at 1008, For 1 dose, Recovery (only) fentaNYL PF (Sublimaze) injection 12.5 mcg 12.5 mcg, intravenous, Every 5 min PRN, pain mild (1-3), first line, Starting on Teresa 01/04/25 at 1008, Recovery (only), Max total of 200 micrograms regardless of dose., If ordered PRN for pain, nurse is permitted to administer this medication for higher pain scores based on patient preference? Yes hydrALAZINE (Apresoline) injection 5 mg 5 mg, intravenous, Administer over 2 Minutes, Every 30 min PRN, systolic blood pressure greater than 180 mmHg and heart rate less than 60 BPM, Starting on Teresa 01/04/25 at 1008, For 2 doses, Recovery (only) HYDROmorphone (Dilaudid) injection 0.5 mg 0.5 mg, intravenous, Every 5 min PRN, pain moderate (4-6), first line, Starting on Teresa 01/04/25 at 1008, Recovery (only), Max total of 4 mg regardless of dose. HYDROmorphone (Dilaudid) injection 1 mg 1 mg, intravenous, Every 5 min PRN, pain severe (7-10), first line, Starting on Teresa 01/04/25 at 1008, Recovery (only), Max total of 4 mg regardless of dose. meperidine PF (Demerol) injection 12.5 mg 12.5 mg, intravenous, Every 10 min PRN, shivering, Starting on Teresa 01/04/25 at 1008, Recovery (only) midazolam (Versed) injection 1 mg 1 mg, intravenous, Once as needed, anxiety, Starting on Teresa 01/04/25 at 1008, For 1 dose, Recovery (only) ondansetron (Zofran) injection 4 mg 4 mg, intravenous, Once as needed, nausea/vomiting, first line, Starting on Teresa 01/04/25 at 1008, For 1 dose, Recovery (only), When administering via IV Push, administer over 3-5 minutes. oxyCODONE (Roxicodone) immediate release tablet 5 mg 5 mg, oral, Every 4 hours PRN, pain severe (7-10), second line, Starting on Teresa 01/04/25 at 1008, Recovery (only), When able to take oral medications., If ordered PRN for pain, nurse is permitted to administer this medication for higher pain scores based on patient preference? Yes oxygen (O2) therapy inhalation, Continuous PRN - O2/gases, other, Starting on Teresa 01/04/25 at 1008, Recovery (only), Device: Nasal Cannula, Rate in liters per minute: Other, Custom Value: 1-6 LPM, Keep O2 Sat Above: 92% FOR RECORDS PERTAINING TO PATIENTS WHO ARE OR HAVE BEEN ENROLLED IN A CHEMICAL DEPENDENCY/SUBSTANCEABUSE PROGRAM, SOME INFORMATION MAY BE OMITTED. This clinical summary was aggregated from multiple sources. Caution should be exercised in using it in the provision of clinical care. This summary normalizes information from multiple sources, and as a consequence, information in this document may materially change the coding, format and clinical context of patient data. In addition, data may be omitted in some cases. CLINICAL DECISIONS SHOULD BE BASED ON THE PRIMARY CLINICAL RECORDS. [employer] [facility]. provides no warranty or guarantee of the accuracy or completeness of information in this document.
== END 2025-03-20 16:09 | disposition home or self-care (01) ==
LOC: ED 15:22
PROVIDERS: Emergency Provider Emergency Medicine; PCP Family Medicine; Visit Provider Emergency Medicine
DX: S61.211A Laceration without foreign body of left index finger without damage to nail, initial encounter (principal); W29.3XXA Contact with powered garden and outdoor hand tools and machinery, initial encounter; R03.0 Elevated blood-pressure reading, without diagnosis of hypertension; R00.0 Tachycardia, unspecified
CPT/HCPCS: 12001; 73140; 99283